=== PATIENT | female | born 1930 | race Caucasian/White ===

== ENCOUNTER 2017-06-23 20:49 | Observation (INO) | payer OTHER ==
[~2017-06-23] VITALS: Ht 160 cm; Wt 50.2 kg
[~2017-06-23 20:49] MED LIST: ASPI81TA28 PO; BRIM0.2S OPB; BRIN1SUS OPB; LISI20TA3 PO; NITR0.4S UT; SERT25TA PO; TERA5CAP PO
[2017-06-23] MEDS ORDERED: DILT-115 PO (21:11)
[2017-06-23] MEDS ORDERED: BUME1TAB PO (21:11)
--- NOTE | 2017-06-23 22:03 | DIAGNOSTIC IMAGING REPORT ---
CHEST ONE VIEW PORTABLE HISTORY: Atypical CHEST PAIN COMPARISON: Chest 01/28/2013. FINDINGS: The lungs are clear. Cardiac silhouette is normal in size. No pleural effusions. No pneumothorax. Stable mild apical pleural thickening. IMPRESSION: No acute process. Electronically signed by: Kenton Lewis M.D. 06/23/2017 10:02 PM Dictated Date/Time: 06/23/2017 10:01 PM
[2017-06-23 22:13] LABS: BASO % 0.3 %; BASO ABS # 0.02 K/uL (0-0.2); COMPLETE YES; EOS % 3.3 %; HEMATOCRIT 36.6 % (37-47); IG% 0.1 %; LYMPH % 32.1 %; LYMPH ABS # 2.46 K/uL (1.2-3.4); MEAN CELL VOLUME 91.7 fL (80-100); MEAN CORPUSCULAR HEMOGLOBIN 30.6 pg (25-34); MEAN CORPUSCULAR HGB CONC 33.3 g/dl (32-36); MEAN PLATELET VOLUME 9.7 fL (7.4-10.4); MONO % 11.1 %; NEUT % 53.1 %; PLATELET COUNT 309 K/uL (130-400); RED BLOOD COUNT 3.99 M/uL (4.2-5.4); WHITE BLOOD COUNT 7.66 K/uL (4.8-10.8)
--- NOTE | 2017-06-23 22:28 | DIAGNOSTIC IMAGING REPORT ---
HEAD CT NONCONTRAST CT DOSE: 537.48 mGy.cm HISTORY: Headache. Hypertension. TECHNIQUE: Multiaxial CT images of the head were performed without the use of intravenous contrast. Automated exposure control was utilized for this study. A dose lowering technique was utilized adhering to the principles of ALARA. Comparison: Head CT 01/28/2013. Findings: The paranasal sinuses and mastoid air cells are clear. The calvarium and skull base are intact. There is no mass, hematoma, midline shift, acute infarct. White matter hypodensity is nonspecific but suggestive of microvascular ischemic change. The ventricles and sulci demonstrate mild age-related involutional changes. Impression: No significant change compared to the prior study. No acute intracranial abnormality. Electronically signed by: Kenton Lewis M.D. 06/23/2017 10:27 PM Dictated Date/Time: 06/23/2017 10:25 PM
[2017-06-23 23:12] LABS: ALKALINE PHOSPHATASE 74 U/L (45-117); ALT/SGPT 13 U/L (12-78); AST/SGOT 20 U/L (15-37); BLOOD UREA NITROGEN 33 mg/dl (7-18); BUN/CREATININE RATIO 23.7 (10-20); CALCIUM 9.5 mg/dl (8.5-10.1); CARBON DIOXIDE 26 mmol/L (21-32); CHLORIDE 101 mmol/L (98-107); GLUCOSE 128 mg/dl (70-99); MAGNESIUM 2.1 mg/dl (1.8-2.4); POTASSIUM 3.6 mmol/L (3.5-5.1); SODIUM 134 mmol/L (136-145)
[2017-06-24] VITALS (9 sets, daily range): BP systolic 95–193; BP diastolic 40–83; PULSE 55–74; TEMP 36.4–36.7; O2SAT 96–98; Ht 160 cm; Wt 50.2 kg
--- NOTE | 2017-06-24 00:04 | EMERGENCY ROOM VISIT NOTE ---
ED Visit Note First contact with patient: 21:32 Staff note: I have reviewed the Patients chart and have discussed this case with my PA. I generally agree with the ED note and findings.
--- NOTE | 2017-06-24 00:26 | EMERGENCY ROOM VISIT NOTE ---
History First contact with patient: 21:32 Chief Complaint: HYPERTENSION Stated Complaint: HIGH BLOOD PRESSURE History of Present Illness The patient is a 87 year old female who presents to the Emergency Room with complaints of high blood pressure for the past day. Blood pressure was 170/100 yesterday. Patient states she had a headache today and noticed her blood pressure was elevated. Patient states when she was cleaning she started getting chest discomfort earlier today around 1:00 and resolved with rest. Patient states was walking back care she got some fluttering in her chest that resolved with rest. No recent stress or echo. 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 This is managed by the vascular doctor in [place]. Patient denies current chest pain, dyspnea, fever, chills, localized weakness, numbness, tingling, vision problems, abdominal pain, fever, chills, vomiting, diarrhea, leg swelling. No history of heart disease. Patient states she's had a TIA in the past. No deficits. Review of Systems See HPI for pertinent positives & negatives. A total of 10 systems reviewed and were otherwise negative. Past Medical/Surgical History Medical Problems: (1) HYPERTENSION NOS (2) Peripheral vascular disease (3) TRANS CEREB ISCHEMIA NOS Social History Smoking Status: Former Smoker Smokeless Tobacco Use: No Alcohol Use: none Drug Use: none Current/Historical Medications Scheduled Aspirin (Aspirin Ec), 81 MG PO DAILY Brimonidine Tartrate-Timolol M (Combigan), 1 DROP OPB BID Brinzolamide Oph (Azopt Oph), 1 DROP OPB BID Bumetanide (Bumex), 1 MG PO DAILY Diltiazem Hcl Ext Rel (Tiazac), 240 MG PO QAM Lisinopril (Prinivil), 40 MG PO QPM Nitroglycerin (Nitrostat), 0.4 MG UT PRN Physical Exam Vital Signs Date Time Temp Pulse Resp B/P (MAP) Pulse Ox O2 Delivery O2 Flow Rate FiO2 06/24/17 00:01 60 18 154/62 100 Room Air 06/23/17 23:03 60 18 147/74 100 Room Air 06/23/17 22:10 82 18 143/64 98 06/23/17 21:55 65 06/23/17 21:50 Room Air 06/23/17 21:34 157/73 06/23/17 21:01 36.4 78 18 203/77 98 Room Air Physical Exam VITALS: Vitals are noted on the nurse's note and reviewed by myself. Vital signs hypertensive GENERAL: Pleasant female, in no acute distress, nondiaphoretic, well-developed well-nourished. SKIN: The skin was without rashes, erythema, edema, or bruising. There is no tenting of the skin. Capillary reflex less than 2 seconds. HEAD: Normocephalic atraumatic. EARS: External auditory canals clear, tympanic membranes pearly taylor without erythema or effusion bilaterally. EYES: Pupils equal round and reactive to light and accommodation. Conjunctivae without injection, sclerae without icterus. Extraocular movements intact. NOSE: Patent, turbinates without inflammation or discharge. MOUTH: Mucous membranes moist. Pharynx without erythema or exudate. Uvula midline. Airway patent. Tongue does not deviate. NECK: Supple without nuchal rigidity. No lymphadenopathy. No thyromegaly. Cervical spine is nontender. No JVD. HEART: Regular rate and rhythm LUNGS: Clear to auscultation bilaterally without wheezes, rales or rhonchi. No dullness to percussion. No retractions or accessory muscle use. ABDOMEN: Positive bowel sounds x 4. Normal tympanic percussion. Soft, nontender, without masses or organomegaly. Jean Baptiste sign negative. No guarding or rebound tenderness. MUSCULOSKELETAL: No muscle atrophy, erythema, or edema noted. NEURO: Patient was alert and oriented to person place and time. Normal sensation to light and sharp touch. No focal neurological deficits. Medical Decision & Procedures Laboratory Results 06/23/17 22:00 Red Blood Count 3.99, Mean Corpuscular Volume 91.7, Mean Corpuscular Hemoglobin 30.6, Mean Corpuscular Hemoglobin Concent 33.3, Mean Platelet Volume 9.7, Neutrophils (%) (Auto) 53.1, Lymphocytes (%) (Auto) 32.1, Monocytes (%) (Auto) 11.1, Eosinophils (%) (Auto) 3.3, Basophils (%) (Auto) 0.3, Neutrophils # (Auto ) 4.07, Lymphocytes # (Auto) 2.46, Monocytes # (Auto) 0.85, Eosinophils # (Auto ) 0.25, Basophils # (Auto) 0.02 06/23/17 22:00 Test 06/23/17 22:00 06/23/17 22:07 06/24/17 00:00 White Blood Count 7.66 K/uL (4.8-10.8) Red Blood Count 3.99 M/uL (4.2-5.4) Hemoglobin 12.2 g/dL (12.0-16.0) Hematocrit 36.6 % (37-47) Mean Corpuscular Volume 91.7 fL (80-100) Mean Corpuscular Hemoglobin 30.6 pg (25-34) Mean Corpuscular Hemoglobin Concent 33.3 g/dl (32-36) Platelet Count 309 K/uL (130-400) Mean Platelet Volume 9.7 fL (7.4-10.4) Neutrophils (%) (Auto) 53.1 % Lymphocytes (%) (Auto) 32.1 % Monocytes (%) (Auto) 11.1 % Eosinophils (%) (Auto) 3.3 % Basophils (%) (Auto) 0.3 % Neutrophils # (Auto) 4.07 K/uL (1.4-6.5) Lymphocytes # (Auto) 2.46 K/uL (1.2-3.4) Monocytes # (Auto) 0.85 K/uL (0.11-0.59) Eosinophils # (Auto) 0.25 K/uL (0-0.5) Basophils # (Auto) 0.02 K/uL (0-0.2) RDW Standard Deviation 44.9 fL (36.4-46.3) RDW Coefficient of Variation 13.5 % (11.5-14.5) Immature Granulocyte % (Auto) 0.1 % Immature Granulocyte # (Auto) 0.01 K/uL (0.00-0.02) Anion Gap 7.0 mmol/L (3-11) Est Creatinine Clear Calc Drug Dose 23.5 ml/min Estimated GFR () 39.6 Estimated GFR (Non- 34.2 BUN/Creatinine Ratio 23.7 (10-20) Calcium Level 9.5 mg/dl (8.5-10.1) Magnesium Level 2.1 mg/dl (1.8-2.4) Total Bilirubin 0.1 mg/dl (0.2-1) Direct Bilirubin mg/dl (0-0.2) Aspartate Amino Transf (AST/SGOT) 20 U/L (15-37) Alanine Aminotransferase (ALT/SGPT) 13 U/L (12-78) Alkaline Phosphatase 74 U/L (45-117) Total Protein 7.5 gm/dl (6.4-8.2) Albumin 3.7 gm/dl (3.4-5.0) Lipase 251 U/L (73-393) Thyroid Stimulating Hormone (TSH) 4.370 uIu/ml (0.300-4.500) Chemistry Specimen Hemolysis Bedside Troponin I < 0.030 ng/ml (0-0.045) ED Course Prior records/ancillary studies reviewed regarding the history above. Triage Nursing notes reviewed. Additional history obtained from the family. The patient's history was concerning for hypertension. Differential diagnosis: Etiologies such as benign hypertension, hypertensive emergency, cardiovascular pathology, pheochromocytoma, electrolyte abnormality, renal disease, endorgan damage, as well as others were entertained. Physical examination: As above. No signs of end organ damage. ER treatment provided: Patient was observed On reassessment the patient felt better. Diagnostic interpretation by me: The electrocardiogram was negative for pathologic change. Poor baseline, normal sinus, normal axis, possible minimal ST depression in the lateral leads, rate of 62. Impression normal sinus rhythm with poor baseline with possible ST depression in the lateral leads. Repeat EKG shows normal sinus with ST depression in the lateral leads interpreted by myself The labs revealed negative troponin Imaging studies: CHEST ONE VIEW PORTABLE HISTORY: Atypical CHEST PAIN COMPARISON: Chest 01/28/2013. FINDINGS: The lungs are clear. Cardiac silhouette is normal in size. No pleural effusions. No pneumothorax. Stable mild apical pleural thickening. IMPRESSION: No acute process. [~ rep ct add3]] HEAD CT NONCONTRAST CT DOSE: 537.48 mGy.cm HISTORY: Headache. Hypertension. TECHNIQUE: Multiaxial CT images of the head were performed without the use of intravenous contrast. Automated exposure control was utilized for this study. A dose lowering technique was utilized adhering to the principles of ALARA. Comparison: Head CT 01/28/2013. Findings: The paranasal sinuses and mastoid air cells are clear. The calvarium and skull base are intact. There is no mass, hematoma, midline shift, acute infarct. White matter hypodensity is nonspecific but suggestive of microvascular ischemic change. The ventricles and sulci demonstrate mild age-related involutional changes. Impression: No significant change compared to the prior study. No acute intracranial abnormality. Electronically signed by: Kenton Lewis M.D. Consultation: A consultation was placed with Dr. Nation hospitalist. The case was discussed and diagnostics were reviewed. The patient was evaluated in the ER for further treatment. This appears to be consistent with elevated blood pressure with chest discomfort. Patient will be evaluated by medicine for possible admission for cardiac rule out. First troponin negative. Blood pressure came down on its own. Patient was neurovascularly and neurologically intact. No recent stress test or echo. By the evaluation outlined above emergent etiologies such as hypertensive emergency, pheochromocytoma, endorgan damage, aortic dissection, pulmonary embolism, pneumonia, pneumothorax, infections, gastrointestinal, as well as others were deemed relatively unlikely. The pt informed about the findings as listed above. All questions were answered and pleased with the treatment. Case reviewed with my attending Medical Decision As above Medication Reconcilliation Current Medication List: was personally reviewed by me Blood Pressure Screening Patient's blood pressure: Elevated blood pressure Blood pressure disposition: Referred to PCP Impression Primary Impression: Precordial chest pain Additional Impression: Hypertension Departure Information Dispostion Being Evaluated By Hospitalist Condition FAIR Referrals Roberta Garcia M.D. (PCP) Patient Instructions My [facility] Problem Qualifiers
[2017-06-24] MEDS ORDERED: IV FLUIDS COMPLETED PRN (01:30)
[2017-06-24] MEDS ORDERED: ONDANSETRON INJ 2 MG/ML 2 ML VIAL IV PRN (01:45)
[2017-06-24] MEDS ORDERED: NITROGLYCERIN 0.4 MG SL PER TAB CHARGE SL PRN (01:45)
[2017-06-24] MEDS ORDERED: HYDROmorphone INJ 0.5 MG/0.5 ML SYR IV PRN (01:45)
[2017-06-24] MEDS ORDERED: ACETAMINOPHEN 325 MG TAB PO PRN (01:45)
[2017-06-24] MEDS ORDERED: TRAMADOL HCL 50 MG TAB PO PRN (01:45)
[2017-06-24] MEDS ORDERED: NSS + 20MEQ KCL 1000ML 1,000 ML IV ONE (02:30)
[2017-06-24 02:55] LABS: URINE APPEARANCE CLEAR (CLEAR); URINE BILIRUBIN NEG (NEG); URINE COLOR YELLOW; URINE NITRITE NEG (NEG); URINE PH 6.5 (4.5-7.5); URINE SPECIFIC GRAVITY 1.012 (1.000-1.030); UROBILINOGEN NEG (NEG); ZZUR CULT IF INDIC CLEAN CATCH NO
[2017-06-24 03:08] LABS: MANUAL MICROSCOPIC REQUIRED? NO; REVIEW REQ? NO
[2017-06-24] MEDS ORDERED: BRINZOLAMIDE (AZOPT) OPS 10 ML BTL OPB ONE (03:30)
[2017-06-24 04:03] LABS: PROTHROMBIN TIME (PATIENT) 10.8 SECONDS (9.0-12.0)
[2017-06-24 05:53] LABS: BASO % 0.3 %; BASO ABS # 0.02 K/uL (0-0.2); COMPLETE YES; EOS % 3.3 %; HEMATOCRIT 36.6 % (37-47); IG% 0.1 %; LYMPH % 33.9 %; LYMPH ABS # 2.38 K/uL (1.2-3.4); MEAN CORPUSCULAR HEMOGLOBIN 30.6 pg (25-34); MEAN CORPUSCULAR HGB CONC 33.6 g/dl (32-36); MEAN PLATELET VOLUME 9.5 fL (7.4-10.4); MONO % 10.8 %; NEUT % 51.6 %; PLATELET COUNT 285 K/uL (130-400); RED BLOOD COUNT 4.02 M/uL (4.2-5.4); WHITE BLOOD COUNT 7.03 K/uL (4.8-10.8)
[2017-06-24] MEDS: HEPARIN SOD 5000 UNIT/0.5 ML CARP SQ SCH ×2 (06:00→14:30)
[2017-06-24 07:11] LABS: BUN/CREATININE RATIO 26.2 (10-20); CALCIUM 9.4 mg/dl (8.5-10.1); POTASSIUM 3.7 mmol/L (3.5-5.1)
--- NOTE | 2017-06-24 07:49 | HISTORY & PHYSICAL EXAMINATION ---
DATE OF ADMISSION: 06/24/2017 PRIMARY CARE DOCTOR: Dr. Garcia. CHIEF COMPLAINT: Chest heaviness. HISTORY OF PRESENT ILLNESS: History obtained from patient and records. Medical history significant for hypertension, hyperlipidemia, post polio syndrome, genital herpes as per records, glaucoma, PVD as per records, history of TIA. Recent confinement in July 2008 for TIA. The last few days, the patient would note intermittent chest heaviness without shortness of breath. Blood pressure noted to be higher than usual, 170s. Usual household cleaning chores. Patient admits to adding salt to corn snack the past week. No unusual stress at home. Compliant w/ home medications Tonight chest heaviness distressing. Achy posterior headache symptoms, her ears were red. Symptoms eased upon arrival in the Emergency Room. Initially on arrival at the Emergency Room, blood pressure noted to be 203/77. Patient's blood pressure currently 160/78. MEDICAL HISTORY: As above. SURGERIES: Appendectomy. She has had a section. HOME MEDICATIONS: Include Nitrostat, aspirin, Combigan, Azopt, Bumex, Tiazac, lisinopril. ALLERGIES: HCTZ. FAMILY HISTORY: Diabetes, stroke, AAA. PERSONAL AND SOCIAL HISTORY: Past tobacco abuse. No chronic intake of alcoholic beverages. Also on disability. REVIEW OF SYSTEMS: As per HPI, all other ROS negative. PHYSICAL EXAMINATION: VITAL SIGNS: Blood pressure was noted to be initially 203/77, later 147/74, pulse rate 60, RR 18, temperature 36.6, sats 100 on room air. GENERAL: Noted to be pleasant, looks younger for stated age. SKIN: Normal color. HEENT: [place] palpebral conjunctivae. Dry mucosa. NECK: No JVD. Supple. CHEST: Clear to auscultation. HEART: Regular rate and rhythm, systolic murmur. ABDOMEN: Soft. EXTREMITIES: No edema. no tenderness. [place] [facility] NEUROLOGIC: No gross focality. LABORATORIES: Hemoglobin was noted to be 12.2, hematocrit 36.6, white cell count 7.66, platelets 309. Sodium 132, potassium 3.6. crea 1.4, trop 0 Chest x-ray showed no acute process. CT of the head, no significant change. EKG as per my interpretation, normal sinus rhythm, PACs. No overt ischemia. ASSESSMENT: 1. Chest pain possibly likely from hypertensive urgency, possibly from dietary indiscretion. 2. ARF 3. History of transient ischemic attack as per records 4. Peripheral vascular disease. 5. Past tobacco abuse. PLAN: Observation. PCU. Judicious blood pressure control. May need to augment regimen. TTE re chest pain. baseline UA, monitor creatinine response to IVF. Hold home VANGIE inhibitor until creatinine at baseline PT OT eval DVT prophylaxis, Heparin subQ. Full code. Patient's daughter requesting for updates from providers, Carolyn Sivan Mauri, . MTDD
[2017-06-24] MEDS: COMBIGAN~ORDER AWAITING ACTION SCH ×2 (07:58→16:00)
[2017-06-24] MEDS ORDERED: BRINZOLAMIDE (AZOPT) OPS 10 ML BTL OPB SCH (09:00)
[2017-06-24] MEDS ORDERED: DILTIAZEM HCL 120 MG EXT REL CAP PO SCH (09:00)
[2017-06-24] MEDS ORDERED: ASPIRIN 81 MG ECTAB PO SCH (09:00)
--- NOTE | 2017-06-24 09:15 | ECHOCARDIOGRAM REPORT ---
*NOTICE TO RECEIVING LIBERTARIAN AGENCY This information is strictly Confidential and protected under [place] law. [place] law prohibits you from making any further disclosure of this information unless further disclosure is expressly permitted by the written consent of the person to whom it pertains or is authorized by law. A general authorization for the release of medical or other information is not sufficient for this purpose. Hospital accepts no responsibility if the information is made available to any other person, INCLUDING THE PATIENT. Interpretation Summary * Name: ARIA HANDLEY Study Date: 06/24/2017 07:16 AM BP: 154/83 mmHg * Patient Location: C.2T\S\S230\S\1 HR: 71 * : 1930 (M/d/yyyy) Gender: Female Height: 63 in * Age: 87 yrs Ethnicity: CA Weight: 111 lb * Ordering Physician: Anthony Raymond * Referring Physician: Self, Referred * Performed By: Annette Arango RCS * * Reason For Study: CHEST PAIN * BSA: 1.5 m2 * -- Conclusions -- * Normal LV chamber size and wall thickness. * Normal LV systolic function, 55-60%. * No segmental left ventricular wall motion abnormalities are noted. * Grade I diastolic dysfunction. * Aortic valve sclerosis mild, without significant aortic valvular stenosis. Mild aortic regurgitation. 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 Mild to moderate mitral regurgitation. * Moderate to severe tricuspid regurgitation. * Moderate right atrial enlargement. Procedure Details * A complete two-dimensional transthoracic echocardiogram was performed (2D, M-mode, Doppler and color flow Doppler). Left Ventricle * The left ventricle is normal in size. * There is normal left ventricular wall thickness. * Left ventricular systolic function is normal. * No segmental left ventricular wall motion abnormalities are noted. * Ejection Fraction = 55-60%. * The left ventricular wall motion is normal. Right Ventricle * The right ventricular cavity size is normal (basal dimension <4.2 cm in right ventricular apical 4-chamber view). * The right ventricular systolic function is normal as assessed by tricuspid annular plane systolic excursion (TAPSE) (normal >1.5 cm). Atria * The left atrial size is normal. * The right atrium is moderately dilated. * No ASD detected; PFO is not assessed. Mitral Valve * There is mild mitral annular calcification. 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 Mild to moderate mitral regurgitation. Tricuspid Valve * The tricuspid valve anatomy is normal. * There is no tricuspid stenosis. * There is moderate to severe tricuspid regurgitation. Aortic Valve * The aortic valve is trileaflet. * Aortic valve sclerosis mild, without significant aortic valvular stenosis. * Mild aortic regurgitation. Pulmonic Valve * The pulmonary valve is not well seen, but the Doppler examination is normal without significant regurgitation or stenosis. Great Vessels * The aortic root is normal size. Pericardium/Pleural * There is no pericardial effusion. Left Ventricular Diastolic Function * Grade I diastolic dysfunction, (abnormal relaxation pattern). MMode 2D Measurements and Calculations IVSd 0.98 cm IVSs 1.4 cm LVIDd 4.2 cm LVIDs 2.9 cm LVPWd 0.87 cm LVPWs 1.0 cm IVS/LVPW 1.1 FS 30.6 % EDV(Teich) 78.1 ml ESV(Teich) 32.4 ml EF(Teich) 58.5 % EDV(cubed) 73.5 ml ESV(cubed) 24.6 ml EF(cubed) 66.5 % % IVS thick 45.3 % % LVPW thick 18.3 % LV mass(C)d 122.7 grams LV mass(C)dI 81.5 grams/m\S\2 LV mass(C)s 108.5 grams LV mass(C)sI 72.0 grams/m\S\2 SV(Teich) 45.6 ml SI(Teich) 30.3 ml/m\S\2 SV(cubed) 48.9 ml SI(cubed) 32.5 ml/m\S\2 Ao root diam 2.6 cm Ao root area 5.2 cm\S\2 ACS 1.5 cm LA dimension 3.4 cm LA/Ao 1.3 LVOT diam 2.0 cm LVOT area 3.0 cm\S\2 Doppler Measurements and Calculations MV E max skyla 108.9 cm/sec MV A max skyla 110.0 cm/sec MV E/A 0.99 MV P1/2t max skyla 118.3 cm/sec MV P1/2t 54.3 msec MVA(P1/2t) 4.1 cm\S\2 MV dec slope 638.9 cm/sec\S\2 MV dec time 0.19 sec Ao V2 max 145.3 cm/sec Ao max PG 8.4 mmHg Ao max PG (full) 5.3 mmHg ANN(V,A) 1.8 cm\S\2 ANN(V,D) 1.8 cm\S\2 AI max skyla 418.0 cm/sec AI max PG 69.9 mmHg AI dec slope 278.4 cm/sec\S\2 AI P1/2t 439.7 msec LV V1 max PG 3.1 mmHg LV V1 max 88.4 cm/sec PA V2 max 88.4 cm/sec PA max PG 3.1 mmHg PI max skyla 181.3 cm/sec PI max PG 13.1 mmHg PI dec slope 224.0 cm/sec\S\2 PI P1/2t 237.0 msec TR max skyla 303.5 cm/sec
[2017-06-24] MEDS ORDERED: HydrALAZINE HCL 20 MG/ML VIAL IV. PRN (12:00)
--- NOTE | 2017-06-24 12:20 | Progress Note ---
Medicine Progress Note Date & Time of Visit: Jun 24, 2017 at 12:00. Subjective Pt was seen and examined Lying in bed comfortable with no discharge Pt said that she does not have any chest discomfort She said that she feels fine Denies any chest pain, palpitation, dizziness and SOB Objective Last 8 Hrs Date Time Temp Pulse Resp B/P (MAP) Pulse Ox O2 Delivery O2 Flow Rate FiO2 06/24/17 10:44 36.4 70 20 166/74 (104) 98 Room Air 06/24/17 08:06 36.5 71 20 154/73 (100) 98 Room Air Physical Exam: General- No acute distress Head- atraumatic Eyes- PERRL, EOMI ENT- oropharynx clear Neck- supple, no JVD Lungs- clear to auscultation Heart- regular rhythm Abdomen- normal bowel sounds, soft, nontender Extremities- no calf tenderness Neuro- alert, oriented x 3; PERRL, EOMI; no facial palsy Skin- warm & dry Laboratory Results: Last 24 Hours Test 06/23/17 22:00 06/23/17 22:07 06/24/17 00:00 06/24/17 02:45 White Blood Count 7.66 K/uL Red Blood Count 3.99 M/uL Hemoglobin 12.2 g/dL Hematocrit 36.6 % Mean Corpuscular Volume 91.7 fL Mean Corpuscular Hemoglobin 30.6 pg Mean Corpuscular Hemoglobin Concent 33.3 g/dl Platelet Count 309 K/uL Mean Platelet Volume 9.7 fL Neutrophils (%) (Auto) 53.1 % Lymphocytes (%) (Auto) 32.1 % Monocytes (%) (Auto) 11.1 % Eosinophils (%) (Auto) 3.3 % Basophils (%) (Auto) 0.3 % Neutrophils # (Auto) 4.07 K/uL Lymphocytes # (Auto) 2.46 K/uL Monocytes # (Auto) 0.85 K/uL Eosinophils # (Auto) 0.25 K/uL Basophils # (Auto) 0.02 K/uL RDW Standard Deviation 44.9 fL RDW Coefficient of Variation 13.5 % Immature Granulocyte % (Auto) 0.1 % Immature Granulocyte # (Auto) 0.01 K/uL Prothrombin Time 10.8 SECONDS Prothromb Time International Ratio 1.0 Sodium Level 134 mmol/L Potassium Level 3.6 mmol/L Chloride Level 101 mmol/L Carbon Dioxide Level 26 mmol/L Anion Gap 7.0 mmol/L Blood Urea Nitrogen 33 mg/dl Creatinine 1.40 mg/dl Est Creatinine Clear Calc Drug Dose 23.5 ml/min Estimated GFR () 39.6 Estimated GFR (Non- 34.2 BUN/Creatinine Ratio 23.7 Random Glucose 128 mg/dl Calcium Level 9.5 mg/dl Magnesium Level 2.1 mg/dl Total Bilirubin 0.1 mg/dl Direct Bilirubin mg/dl Aspartate Amino Transf (AST/SGOT) 20 U/L Alanine Aminotransferase (ALT/SGPT) 13 U/L Alkaline Phosphatase 74 U/L Troponin I < 0.015 ng/ml < 0.015 ng/ml Total Protein 7.5 gm/dl Albumin 3.7 gm/dl Lipase 251 U/L Thyroid Stimulating Hormone (TSH) 4.370 uIu/ml Chemistry Specimen Hemolysis Bedside Troponin I < 0.030 ng/ml Urine Color YELLOW Urine Appearance CLEAR Urine pH 6.5 Urine Specific [place] 1.012 Urine Protein NEG Urine Glucose (UA) NEG Urine Ketones NEG Urine Occult Blood NEG Urine Nitrite NEG Urine Bilirubin NEG Urine Urobilinogen NEG Urine Leukocyte Esterase NEG Test 06/24/17 05:34 06/24/17 05:41 White Blood Count 7.03 K/uL Red Blood Count 4.02 M/uL Hemoglobin 12.3 g/dL Hematocrit 36.6 % Mean Corpuscular Volume 91.0 fL Mean Corpuscular Hemoglobin 30.6 pg Mean Corpuscular Hemoglobin Concent 33.6 g/dl Platelet Count 285 K/uL Mean Platelet Volume 9.5 fL Neutrophils (%) (Auto) 51.6 % Lymphocytes (%) (Auto) 33.9 % Monocytes (%) (Auto) 10.8 % Eosinophils (%) (Auto) 3.3 % Basophils (%) (Auto) 0.3 % Neutrophils # (Auto) 3.63 K/uL Lymphocytes # (Auto) 2.38 K/uL Monocytes # (Auto) 0.76 K/uL Eosinophils # (Auto) 0.23 K/uL Basophils # (Auto) 0.02 K/uL RDW Standard Deviation 44.8 fL RDW Coefficient of Variation 13.5 % Immature Granulocyte % (Auto) 0.1 % Immature Granulocyte # (Auto) 0.01 K/uL Troponin I < 0.015 ng/ml Sodium Level 140 mmol/L Potassium Level 3.7 mmol/L Chloride Level 106 mmol/L Carbon Dioxide Level 26 mmol/L Anion Gap 8.0 mmol/L Blood Urea Nitrogen 26 mg/dl Creatinine 1.00 mg/dl Est Creatinine Clear Calc Drug Dose 32.6 ml/min Estimated GFR () 59.5 Estimated GFR (Non- 51.3 BUN/Creatinine Ratio 26.2 Random Glucose 93 mg/dl Calcium Level 9.4 mg/dl Assessment & Plan Hypertensive Urgency BP on admission was 203/77 Pt has been eating salt lately BP 154/73 On Cardizem 240 mg and lisinopril 40mg Advised pt to follow a low salt diet Resume lisinopril tonight Continue monitor BP and bring BP log to your next appt with your PCP Pressure Like Chest Discomfort Likely from hypertensive urgency due to increase salt All 3 sets of troponin negative Continue asa Denies any symptoms currently ECHO showed *Normal LV chamber size and wall thickness. * Normal LV systolic function, 55-60%. * No segmental left ventricular wall motion abnormalities are noted. * Grade I diastolic dysfunction. * Aortic valve sclerosis mild, without significant aortic valvular stenosis. Mild aortic regurgitation. 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 Mild to moderate mitral regurgitation. * Moderate to severe tricuspid regurgitation. * Moderate right atrial enlargement. Acute kidney injury Creatine on admission1.4 creatine today is 1 resolved History of transient ischemic attack as per records Continue ASA DVT Px on SCDs CODE STATUS FULL CODE Current Inpatient Medications: Current Inpatient Medications Medications (Trade) Dose Ordered Sig/Shahriar Route Start Time Stop Time Status Last Admin Dose Admin Miscellaneous (Iv Fluids Completed) 1 ea PRN PRN N/A 06/24/17 01:30 06/24/18 01:29 Aspirin (Ecotrin Tab) 81 mg DAILY PO 06/24/17 09:00 07/24/17 08:59 06/24/17 08:12 81 MG Brinzolamide (Azopt) 1 drops BID OPB 06/24/17 09:00 07/24/17 08:59 06/24/17 08:14 1 DROPS Diltiazem HCl (TIAzac CAP) 240 mg QAM PO 06/24/17 09:00 07/24/17 08:59 06/24/17 09:43 240 MG Miscellaneous Information (Order Awaiting Action) 1 ea QS N/A 06/24/17 03:30 07/24/17 03:29 Potassium Chloride/Sodium Chloride 1,000 ml @ 75 mls/hr [id number] ONCE IV 06/24/17 02:30 06/24/17 15:49 06/24/17 03:16 75 MLS/HR Acetaminophen (Tylenol Tab) 650 mg Q4H PRN PO 06/24/17 01:45 07/24/17 01:44 Nitroglycerin (Nitrostat Tab) 0.4 mg UD PRN SL 06/24/17 01:45 07/24/17 01:44 Hydromorphone HCl (Dilaudid Inj) 0.5 mg Q3H PRN IV 06/24/17 01:45 07/08/17 01:44 Ondansetron HCl (Zofran Inj) 4 mg Q6H PRN IV 06/24/17 01:45 07/24/17 01:44 Tramadol HCl (Ultram Tab) 25 mg Q6H PRN PO 06/24/17 01:45 07/24/17 01:44 Heparin Sodium (Porcine) (Heparin Sq 5000 Unit/0.5ml) 5,000 unit Q8 SQ 06/24/17 06:00 07/24/17 05:59 06/24/17 06:00 5,000 UNIT
[2017-06-24] MEDS ORDERED: SODIUM CHLORIDE 0.9% 1000ML 500 ML IV ONE (15:30)
[2017-06-24] MEDS ORDERED: NURSING VERBAL MED ORDER ONE (15:30)
--- NOTE | 2017-06-24 16:54 | Discharge Instructions ---
Discharge Instructions Date of Service Jun 24, 2017. Admission Reason for Admission: Precordial Chest Pain Discharge Discharge Diagnosis / Problem: Hypertensive urgency, Pressure Like Chest Discomfort, Acute kidney injury Discharge Goals Goal(s): Decrease discomfort, Improve function, Improve disease control Activity Recommendations Activity Limitations: resume your previous activity (as tolerated) . Instructions / Follow-Up Instructions / Follow-Up Follow up with your primary Care provider Dr. Garcia on 06/29 @ 11:05 AM monitor your Blood pressure Bring blood pressure log at your next appointment with Dr. Garcia Follow a low salt diet fall precaution Current Hospital Diet Patient's current hospital diet: AHA Diet (Heart Healthy) Discharge Diet Recommended Diet: AHA Diet (Heart Healthy), Low Sodium Diet (2gm Na) Pending Studies Studies pending at discharge: no Medical Emergencies . Who to Call and When: Medical Emergencies: If at any time you feel your situation is an emergency, please call 911 immediately. . Non-Emergent Contact Non-Emergency issues call your: Primary Care Provider Call Non-Emergent contact if: you have any medication questions . . "Provider Documentation" section prepared by Carolyn Kunz. . VTE Core Measure Inpt VTE Proph given/why not?: Unfractionated heparin SQ
[2017-06-24] MEDS ORDERED: LISINOPRIL 20 MG TAB PO SCH (21:00)
--- NOTE | 2017-06-25 17:51 | Discharge Summary ---
Discharge Summary Date of Service Jun 25, 2017. Discharge Summary Admission Date: Jun 24, 2017 at 00:49 Discharge Date: Jun 24, 2017 Discharge Disposition: Home Principal Diagnosis: Hypertensive urgency Secondary Diagnoses/Problems: Pressure Like Chest Discomfort Acute kidney injury History of transient ischemic attack Acute Kidney Injury Procedures: HEAD CT NONCONTRAST CT DOSE: 537.48 mGy.cm HISTORY: Headache. Hypertension. TECHNIQUE: Multiaxial CT images of the head were performed without the use of intravenous contrast. Automated exposure control was utilized for this study. A dose lowering technique was utilized adhering to the principles of ALARA. Comparison: Head CT 01/28/2013. Findings: The paranasal sinuses and mastoid air cells are clear. The calvarium and skull base are intact. There is no mass, hematoma, midline shift, acute infarct. White matter hypodensity is nonspecific but suggestive of microvascular ischemic change. The ventricles and sulci demonstrate mild age-related involutional changes. Impression: No significant change compared to the prior study. No acute intracranial abnormality. Electronically signed by: Kenton Lewis M.D. 06/23/2017 10:27 PM Dictated Date/Time: 06/23/2017 10:25 PM [~ rep ct add3]] CHEST ONE VIEW PORTABLE HISTORY: Atypical CHEST PAIN COMPARISON: Chest 01/28/2013. FINDINGS: The lungs are clear. Cardiac silhouette is normal in size. No pleural effusions. No pneumothorax. Stable mild apical pleural thickening. IMPRESSION: No acute process. Electronically signed by: Kenton Lewis M.D. 06/23/2017 10:02 PM ECHO Interpretation Summary * Name: ARIA HANDLEY Study Date: 06/24/2017 07:16 AM BP: 154/83 mmHg * Patient Location: 2\\S\\S230\\S\\1 HR: 71 * : 1930 (M/d/yyyy) Gender: Female Height: 63 in * Age: 87 yrs Ethnicity: [place] Weight: 111 lb * Ordering Physician: Anthony Raymond * Referring Physician: Self, Referred * Performed By: Annette Arango RCS * * Reason For Study: CHEST PAIN * BSA: 1.5 m2 * -- Conclusions -- * Normal LV chamber size and wall thickness. * Normal LV systolic function, 55-60%. * No segmental left ventricular wall motion abnormalities are noted. * Grade I diastolic dysfunction. * Aortic valve sclerosis mild, without significant aortic valvular stenosis. Mild aortic regurgitation. 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 Mild to moderate mitral regurgitation. * Moderate to severe tricuspid regurgitation. * Moderate right atrial enlargement. Procedure Details * A complete two-dimensional transthoracic echocardiogram was performed (2D, M-mode, Doppler and color flow Doppler). Left Ventricle * The left ventricle is normal in size. * There is normal left ventricular wall thickness. * Left ventricular systolic function is normal. * No segmental left ventricular wall motion abnormalities are noted. * Ejection Fraction = 55-60%. * The left ventricular wall motion is normal. Right Ventricle * The right ventricular cavity size is normal (basal dimension <4.2 cm in right ventricular apical 4-chamber view). * The right ventricular systolic function is normal as assessed by tricuspid annular plane systolic excursion (TAPSE) (normal >1.5 cm). Atria * The left atrial size is normal. * The right atrium is moderately dilated. * No ASD detected; PFO is not assessed. Mitral Valve * There is mild mitral annular calcification. 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 Mild to moderate mitral regurgitation. Tricuspid Valve * The tricuspid valve anatomy is normal. * There is no tricuspid stenosis. * There is moderate to severe tricuspid regurgitation. Aortic Valve * The aortic valve is trileaflet. * Aortic valve sclerosis mild, without significant aortic valvular stenosis. * Mild aortic regurgitation. Pulmonic Valve * The pulmonary valve is not well seen, but the Doppler examination is normal without significant regurgitation or stenosis. Great Vessels * The aortic root is normal size. Pericardium/Pleural * There is no pericardial effusion. Left Ventricular Diastolic Function * Grade I diastolic dysfunction, (abnormal relaxation pattern). Medication Reconciliation Continued Medications: Aspirin (Aspirin Ec) 81 Mg Tab 81 MG PO DAILY Brimonidine Tartrate-Timolol M (Combigan) 1 Maite Maite 1 DROP OPB BID Brinzolamide Oph (Azopt Oph) 1 % Ame 1 DROP OPB BID, BTL Bumetanide (Bumex) 1 Mg Tab 1 MG PO DAILY, TAB Diltiazem Hcl Ext Rel (Tiazac) 240 Mg Capcr 240 MG PO QAM, CAP Lisinopril (Prinivil) 20 Mg Tab 40 MG PO QPM, TAB Nitroglycerin (Nitrostat) 0.4 Mg Sub 0.4 MG UT PRN, BTL ONE TABLET UNDER THE TONGUE EVERY 5 MINUTES NEEDED FOR CHEST PAIN. MAXIMUM OF 3 DOSES IN 15 MINUTES. Admission Information HPI (per Admitting provider): CHIEF COMPLAINT: Chest heaviness. HISTORY OF PRESENT ILLNESS: History obtained from patient and records. Medical history significant for hypertension, hyperlipidemia, post polio syndrome, genital herpes as per records, glaucoma, PVD as per records, history of TIA. Recent confinement in July 2008 for TIA. The last few days, the patient would note intermittent chest heaviness without shortness of breath. Blood pressure noted to be higher than usual, 170s. Usual household cleaning chores. Patient admits to adding salt to corn snack the past week. No unusual stress at home. Compliant w/ home medications Tonight chest heaviness distressing. Achy posterior headache symptoms, her ears were red. Symptoms eased upon arrival in the Emergency Room. Initially on arrival at the Emergency Room, blood pressure noted to be 203/77. Patient's blood pressure currently 160/78. Physical Exam (per Admitting): PHYSICAL EXAMINATION: VITAL SIGNS: Blood pressure was noted to be initially 203/77, later 147/74, pulse rate 60, RR 18, temperature 36.6, sats 100 on room air. GENERAL: Noted to be pleasant, looks younger for stated age. SKIN: Normal color. HEENT: [place] palpebral conjunctivae. Dry mucosa. NECK: No JVD. Supple. CHEST: Clear to auscultation. HEART: Regular rate and rhythm, systolic murmur. ABDOMEN: Soft. EXTREMITIES: No edema. no tenderness. [place] [facility] NEUROLOGIC: No gross focality. Hospital Course Hypertensive Urgency BP on admission was 203/77 Pt has been eating salt lately BP 154/73 On Cardizem 240 mg and lisinopril 40mg Advised pt to follow a low salt diet Resume lisinopril tonight Continue monitor BP and bring BP log to your next appt with your PCP Pressure Like Chest Discomfort Likely from hypertensive urgency due to increase salt All 3 sets of troponin negative Continue asa Denies any symptoms currently ECHO showed *Normal LV chamber size and wall thickness. * Normal LV systolic function, 55-60%. * No segmental left ventricular wall motion abnormalities are noted. * Grade I diastolic dysfunction. * Aortic valve sclerosis mild, without significant aortic valvular stenosis. Mild aortic regurgitation. 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 Mild to moderate mitral regurgitation. * Moderate to severe tricuspid regurgitation. * Moderate right atrial enlargement. Acute kidney injury Creatine on admission1.4 creatine today is 1 resolved History of transient ischemic attack as per records Continue ASA DVT Px on SCDs CODE STATUS FULL CODE Total time spent on discharge = 35 minutes This includes examination of the patient, discharge planning, medication reconciliation, and communication with other providers. Discharge Instructions Discharge Instructions Date of Service Jun 24, 2017. Admission Reason for Admission: Precordial Chest Pain Discharge Discharge Diagnosis / Problem: Hypertensive urgency, Pressure Like Chest Discomfort, Acute kidney injury Discharge Goals Goal(s): Decrease discomfort, Improve function, Improve disease control Activity Recommendations Activity Limitations: resume your previous activity (as tolerated) . Instructions / Follow-Up Instructions / Follow-Up Follow up with your primary Care provider Dr. Garcia on 06/29 @ 11:05 AM monitor your Blood pressure Bring blood pressure log at your next appointment with Dr. Garcia Follow a low salt diet fall precaution Current Hospital Diet Patient's current hospital diet: AHA Diet (Heart Healthy) Discharge Diet Recommended Diet: AHA Diet (Heart Healthy), Low Sodium Diet (2gm Na) Pending Studies Studies pending at discharge: no Medical Emergencies . Who to Call and When: Medical Emergencies: If at any time you feel your situation is an emergency, please call 911 immediately. . Non-Emergent Contact Non-Emergency issues call your: Primary Care Provider Call Non-Emergent contact if: you have any medication questions . . "Provider Documentation" section prepared by Carolyn Kunz. . VTE Core Measure Inpt VTE Proph given/why not?: Unfractionated heparin SQ Additional Copies To Roberta Garcia M.D.
== END 2017-06-24 17:52 | disposition home or self-care (01) ==
LOC: C.EDB 20:50 → C.2T 06-24 00:49 → ENRESERV 06-24 01:14 → UNDODISOB 06-24 14:45
PROVIDERS: ADMIT Internal Medicine; ATTEND Internal Medicine
DX: R07.89 Other chest pain (principal); N17.9 Acute kidney failure, unspecified; I10 Essential (primary) hypertension; I73.9 Peripheral vascular disease, unspecified; G14 Postpolio syndrome; E78.5 Hyperlipidemia, unspecified; Z87.891 Personal history of nicotine dependence; Z79.82 Long term (current) use of aspirin; Z79.899 Other long term (current) drug therapy; Z86.73 Personal history of transient ischemic attack (TIA), and cerebral infarction without residual deficits

== ENCOUNTER 2017-09-16 10:13 | Inpatient (IN) | payer OTHER ==
[~2017-09-16] VITALS: Ht 160 cm; Wt 50.4 kg
[2017-09-16] VITALS (12 sets, daily range): BP systolic 95–171; BP diastolic 49–78; PULSE 56–64; TEMP 36.5–36.6; O2SAT 97–100; Ht 160 cm; Wt 50.4 kg
[~2017-09-16 10:13] MED LIST changes: +BUME1TAB PO; +DILT-115 PO; -SERT25TA PO; -TERA5CAP PO
[2017-09-16] MEDS ORDERED: DILT-113 PO (10:45)
--- NOTE | 2017-09-16 11:02 | EMERGENCY ROOM VISIT NOTE ---
History Report prepared by Patti: Tammy Emery Under the Supervision of: Dr. Brad Suggs M.D. First contact with patient: 10:37 Chief Complaint: CHEST PAIN Stated Complaint: POSSIBLE HEART ATTACK, CHEST/JAW PAIN Nursing Triage Summary: pt reports right jaw pain started 2 evening ago chest pain started yesterday am. has nitro for angina relieved jaw and chest pressure History of Present Illness The patient is an 87 year old white female with a past medical history of hyperlipidemia, TIA, hypertension who presents to the ED with a cc of intermittent chest pain beginning yesterday. Positive shortness of breath, diaphoresis, pain in jaw. Negative cough, fever, chills, nausea, abdominal pain , swelling in her lower extremities. She currently rates her discomfort as a 5/ 10 in severity. The patient states that she first developed her pain yesterday , noting that it was more central. She rated that pain as a 10/10 in severity. The patient states that today her pain is on the left side of her chest. She states that she took 81 mg of Aspirin and a dose of nitroglycerin. She denies any history of blood clots. Source of History: patient Onset: yesterday Position: chest (left) Symptom Intensity: 5/10 Timing: intermittent Associated Symptoms: + diaphoresis, + SOB, No fevers, No chills, No cough, No nausea, No abdominal pain Note: Associated Symptoms: pain in jaw Review of Systems See HPI for pertinent positives and negatives. A total of ten systems were reviewed and were otherwise negative. Past Medical & Surgical Medical Problems: (1) HYPERTENSION NOS (2) Peripheral vascular disease (3) TRANS CEREB ISCHEMIA NOS Family History Noncontributory secondary to age Social History Smoking Status: Never Smoker Alcohol Use: none Drug Use: none Marital Status: Occupation Status: retired Current/Historical Medications Scheduled Aspirin (Aspirin Ec), 81 MG PO DAILY Brimonidine Tartrate-Timolol M (Combigan), 1 DROP OPB BID Brinzolamide Oph (Azopt Oph), 1 DROP OPB BID Bumetanide (Bumex), 1 MG PO DAILY Diltiazem Hcl Ext Rel (Tiazac), 180 MG PO DAILY Lisinopril (Prinivil), 40 MG PO QPM Nitroglycerin (Nitrostat), 0.4 MG UT PRN Allergies Coded Allergies: Hydrochlorothiazide (Verified Allergy, Unknown, ., 06/23/17) Physical Exam Vital Signs Date Time Temp Pulse Resp B/P (MAP) Pulse Ox O2 Delivery O2 Flow Rate FiO2 09/16/17 12:54 67 20 151/69 98 Room Air 09/16/17 12:20 57 20 118/67 98 09/16/17 12:07 69 20 93/43 97 Room Air 09/16/17 12:00 97 Room Air 09/16/17 11:58 68 18 133/67 97 Room Air 09/16/17 10:42 73 09/16/17 10:40 98 Room Air 09/16/17 10:40 67 18 159/72 98 Room Air 09/16/17 10:27 36.7 63 18 118/63 95 Room Air Physical Exam GENERAL: Awake, alert, well-appearing, NAD HENT: Normocephalic, atraumatic. EYES: Normal conjunctiva. Sclera non-icteric. NECK: Supple. No nuchal rigidity. FROM. RESPIRATORY: CTAB, no rhonchi, wheezing, crackles CARDIAC: RRR, no MRG ABDOMEN: Soft, NTND, BS+ MSK: No chest wall TTP, no LE edema NEURO: GCS 15, CN 2-12 intact, moves all 4s on command SKIN: No rash or jaundice noted. Medical Decision & Procedures ER Provider Diagnostic Interpretation: X-ray: Per my interpretation, radiologist review. CHEST ONE VIEW PORTABLE CLINICAL HISTORY: Chest pain. COMPARISON STUDY: Chest radiograph June 23, 2017. FINDINGS: Lung volumes are normal. No pneumothorax or pleural effusion is present. Cardiomediastinal silhouette is normal. Pulmonary vascularity is normal. There is no consolidation to suggest pneumonia. Mild biapical opacities are unchanged. IMPRESSION: No acute cardiopulmonary findings. Electronically signed by: Yogesh Gardner M.D. 09/16/2017 11:31 AM Dictated Date/Time: 09/16/2017 11:29 AM Laboratory Results 09/16/17 11:04 Red Blood Count 3.88, Mean Corpuscular Volume 94.1, Mean Corpuscular Hemoglobin 31.7, Mean Corpuscular Hemoglobin Concent 33.7, Mean Platelet Volume 9.7, Neutrophils (%) (Auto) 80.6, Lymphocytes (%) (Auto) 10.8, Monocytes (%) (Auto) 7.8, Eosinophils (%) (Auto) 0.6, Basophils (%) (Auto) 0.1, Neutrophils # (Auto) 11.69, Lymphocytes # (Auto) 1.56, Monocytes # (Auto) 1.13, Eosinophils # (Auto) 0.09, Basophils # (Auto) 0.02 09/16/17 11:04 Test 09/16/17 11:04 White Blood Count 14.51 K/uL (4.8-10.8) Red Blood Count 3.88 M/uL (4.2-5.4) Hemoglobin 12.3 g/dL (12.0-16.0) Hematocrit 36.5 % (37-47) Mean Corpuscular Volume 94.1 fL (80-100) Mean Corpuscular Hemoglobin 31.7 pg (25-34) Mean Corpuscular Hemoglobin Concent 33.7 g/dl (32-36) Platelet Count 305 K/uL (130-400) Mean Platelet Volume 9.7 fL (7.4-10.4) Neutrophils (%) (Auto) 80.6 % Lymphocytes (%) (Auto) 10.8 % Monocytes (%) (Auto) 7.8 % Eosinophils (%) (Auto) 0.6 % Basophils (%) (Auto) 0.1 % Neutrophils # (Auto) 11.69 K/uL (1.4-6.5) Lymphocytes # (Auto) 1.56 K/uL (1.2-3.4) Monocytes # (Auto) 1.13 K/uL (0.11-0.59) Eosinophils # (Auto) 0.09 K/uL (0-0.5) Basophils # (Auto) 0.02 K/uL (0-0.2) RDW Standard Deviation 49.6 fL (36.4-46.3) RDW Coefficient of Variation 14.4 % (11.5-14.5) Immature Granulocyte % (Auto) 0.1 % Immature Granulocyte # (Auto) 0.02 K/uL (0.00-0.02) Echinocytes 1+ Prothrombin Time 10.7 SECONDS (9.0-12.0) Prothromb Time International Ratio 1.0 (0.9-1.1) Activated Partial Thromboplast Time 27.6 SECONDS (21.0-31.0) Partial Thromboplastin Ratio 1.1 Anion Gap 8.0 mmol/L (3-11) Est Creatinine Clear Calc Drug Dose 33.4 ml/min Estimated GFR () 61.0 Estimated GFR (Non- 52.6 BUN/Creatinine Ratio 19.6 (10-20) Calcium Level 9.5 mg/dl (8.5-10.1) Phosphorus Level 2.6 mg/dl (2.5-4.9) Magnesium Level 2.1 mg/dl (1.8-2.4) Total Bilirubin 0.4 mg/dl (0.2-1) Direct Bilirubin < 0.1 mg/dl (0-0.2) Aspartate Amino Transf (AST/SGOT) 20 U/L (15-37) Alanine Aminotransferase (ALT/SGPT) 14 U/L (12-78) Alkaline Phosphatase 73 U/L (45-117) Troponin I 0.129 ng/ml (0-0.045) Pro-B-Type Natriuretic Peptide 1012 pg/ml (0-1800) Total Protein 7.6 gm/dl (6.4-8.2) Albumin 3.8 gm/dl (3.4-5.0) Lipase 239 U/L (73-393) Laboratory results reviewed by me Medications Administered Medications (Trade) Dose Ordered Sig/Shahriar Route Start Time Stop Time Status Last Admin Dose Admin Aspirin (Aspirin Chew) 243 mg NOW STAT PO 09/16/17 11:04 09/16/17 11:05 DC 09/16/17 11:57 243 MG Nitroglycerin (Nitrostat Tab) 0.4 mg STK-MED ONCE .ROUTE 09/16/17 11:55 09/16/17 11:56 DC 09/16/17 11:55 0.4 MG Heparin Sodium/ Dextrose (Heparin 25,000 Unit/500ml D5W) 25,000 unit STK-MED ONCE .ROUTE 09/16/17 11:55 09/16/17 11:56 DC 09/16/17 12:01 25,000 UNIT Midazolam HCl (Versed Inj) 2 mg STK-MED ONCE .ROUTE 09/16/17 12:50 09/16/17 12:51 DC 09/16/17 14:07 1 MG Fentanyl Citrate (Fentanyl Inj) 100 mcg STK-MED ONCE .ROUTE 09/16/17 12:50 09/16/17 12:51 DC 09/16/17 14:07 25 MCG Heparin Sodium (Porcine) (Heparin Iv Bolus) 10,000 unit STK-MED ONCE .ROUTE 09/16/17 12:50 09/16/17 12:51 DC 09/16/17 14:07 7,000 UNIT ECG Indication: chest pain Rate (beats per minute): 65 Rhythm: normal sinus Findings: other (normal intervals, no STS or TWI) Change: Repeat EKG: normal sinus rhythm 63 beats per minute, normal intervals, lateral depressions V4-V6 ED Course 1053: The patient was evaluated in room C10. A complete history and physical exam was performed. 1111: I discussed the patients case with Dr. Douglas, Cardiology. He is going to come evaluate the patient. 1122: I spoke to Dr. Douglas, Cardiology at this time. He states that the patient needs to have a cardiac catheterization today. He states that he will follow up with the patient. 1208: I discussed the patients case with Vishal Horne. He is going to evaluate the patient for further treatment. Medical Decision Differential diagnosis: Etiologies such as cardiac ischemia, aortic dissection, pulmonary embolism, pneumonia, pneumothorax, musculoskeletal, infections, pericarditis, myocarditis , esophageal rupture, gastrointestinal, as well as others were entertained. The patient is an 87 year old white female with a past medical history of hyperlipidemia, TIA, hypertension who presents to the ED with a cc of intermittent chest pain beginning yesterday. The patient was seen and evaluated at the bedside. Patient does have some risk factors and concerning story for chest pain. Patient states that she had chest pain beginning yesterday substernal pressure-like in nature. Patient states that the pain did radiate to the right jaw. She did have some nausea but without any vomiting and one episode of diaphoresis. Patient states she did take nitroglycerin this morning as well as a baby aspirin stated that nitroglycerin helped relieve her pain. Initial EKG maybe showed some subtle depressions laterally however a repeat EKG completed approximately 30 minutes later did show some dynamic changes w/ more impressive lateral ST depressions. Given the patient's dynamic changes I did discuss these findings with the on- call automotive power electronics engineer who came to evaluate the patient in person. I also did discuss that the patient was seen back in June for chest pain at which point she had an echocardiogram completed which did show that she had some TR and MR, mild diastolic dysfunction and an LVEF of approximately 50-60%. Patient was given some additional aspirin to complete a full dose aspirin. There was a heart alert in the hospital so the patient cannot be evaluated immediately with a left heart catheterization thus the decision was made for ACS protocol. I discussed the patient further with the automotive power electronics engineer Dr. Douglas who was helping to arrange a likely left heart catheterization later today. Review of patient's blood work showed +troponin. I also discussed the patient with the hospitalist who agreed help initiate ACS protocol and further workup and management of the patient. Medication Reconcilliation Current Medication List: was personally reviewed by me Blood Pressure Screening Patient's blood pressure: Normal blood pressure Blood pressure disposition: Did not require urgent referral Consults Time Called: 1108 Consulting Physician: Dr. Douglas, Cardiology Returned Call: 1111 I discussed the patients case with Dr. Douglas, Cardiology. He is going to come evaluate the patient. Additional Consults: Time Called: 1153 Consulted Physician: Vishal Horne Returned Call: 1208 Additional Comments: I discussed the patients case with Vishal Horne. He is going to evaluate the patient for further treatment. Impression Primary Impression: NSTEMI (non-ST elevated myocardial infarction) Additional Impression: Atypical chest pain Critical Care I have personally spent greater than 38 minutes of critical care time in the direct management of this patient. This includes bedside care, interpretation of diagnostic studies, and testing, discussion with consultants, patient, and family members, and other required patient management activities. This 38 minutes is in excess of all separately billable procedures. Scribe Attestation The scribe's documentation has been prepared under my direction and personally reviewed by me in its entirety. I confirm that the note above accurately reflects all work, treatment, procedures, and medical decision making performed by me. Departure Information Dispostion Being Evaluated By Hospitalist Referrals Roberta Garcia M.D. (PCP) Problem Qualifiers
[2017-09-16] MEDS ORDERED: ASPIRIN 324 MG CHEW PO STA (11:04)
[2017-09-16 11:20] LABS: HEMATOCRIT 36.5 % (37-47); MEAN CELL VOLUME 94.1 fL (80-100); MEAN CORPUSCULAR HEMOGLOBIN 31.7 pg (25-34); MEAN CORPUSCULAR HGB CONC 33.7 g/dl (32-36); MEAN PLATELET VOLUME 9.7 fL (7.4-10.4); PLATELET COUNT 305 K/uL (130-400); RED BLOOD COUNT 3.88 M/uL (4.2-5.4); WHITE BLOOD COUNT 14.51 K/uL (4.8-10.8)
[2017-09-16 11:30] LABS: PARTIAL THROMBOPLASTIN RATIO 1.1; PROTHROMBIN TIME (PATIENT) 10.7 SECONDS (9.0-12.0)
[2017-09-16 11:32] LABS: ALT/SGPT 14 U/L (12-78); BLOOD UREA NITROGEN 19 mg/dl (7-18); BUN/CREATININE RATIO 19.6 (10-20); CALCIUM 9.5 mg/dl (8.5-10.1); CARBON DIOXIDE 26 mmol/L (21-32); CHLORIDE 100 mmol/L (98-107); CREATININE 0.98 mg/dl (0.60-1.20); GLUCOSE 108 mg/dl (70-99); MAGNESIUM 2.1 mg/dl (1.8-2.4); POTASSIUM 3.6 mmol/L (3.5-5.1); SODIUM 134 mmol/L (136-145)
--- NOTE | 2017-09-16 11:32 | DIAGNOSTIC IMAGING REPORT ---
CHEST ONE VIEW PORTABLE CLINICAL HISTORY: Chest pain. COMPARISON STUDY: Chest radiograph June 23, 2017. FINDINGS: Lung volumes are normal. No pneumothorax or pleural effusion is present. Cardiomediastinal silhouette is normal. Pulmonary vascularity is normal. There is no consolidation to suggest pneumonia. Mild biapical opacities are unchanged. IMPRESSION: No acute cardiopulmonary findings. Electronically signed by: Yogesh Gardner M.D. 09/16/2017 11:31 AM Dictated Date/Time: 09/16/2017 11:29 AM
[2017-09-16] MEDS ORDERED: NITROGLYCERIN 0.4 MG SL PER TAB CHARGE SL STA (11:41)
[2017-09-16] MEDS ORDERED: METOPROLOL TARTRATE 1 MG/ML VIAL IV STA (11:44)
[2017-09-16 11:49] LABS: BASO % 0.1 %; BASO ABS # 0.02 K/uL (0-0.2); COMPLETE YES; ECHINOCYTES 1+; EOS % 0.6 %; IG% 0.1 %; LYMPH % 10.8 %; LYMPH ABS # 1.56 K/uL (1.2-3.4); MONO % 7.8 %; NEUT % 80.6 %
[2017-09-16 11:54] LABS: ALKALINE PHOSPHATASE 73 U/L (45-117); AST/SGOT 20 U/L (15-37); PHOSPHORUS 2.6 mg/dl (2.5-4.9)
[2017-09-16] MEDS ORDERED: NITROGLYCERIN 0.4 MG SL PER TAB CHARGE ONE (11:55)
[2017-09-16] MEDS ORDERED: HEPARIN 25000 UNIT/500 ML D5W ONE (11:55)
--- NOTE | 2017-09-16 12:26 | Cardiology Consultation ---
Cardiology Consultation Date of Consultation: Sep 16, 2017 History of Present Illness Maria M Reynolds is an 87 year old female seen in cardiology consultation per the request of Dr. Suggs for the evaluation of an acute coronary syndrome. The patient's primary care provider is Dr. Roberta Garcia [facility]. She does not follow with cardiology on a routine basis. The patient is accompanied by her daughter, Sivan, who is at the bedside today. The patient reports 3 days of waxing and waning jaw and midline chest pressure. She reportedly initially had some right-sided jaw pain on , after describing having had a very busy holiday. She had company over from out of state, and she states that things overwhelmed her. She had slept poorly the night. Yesterday she had waxing and waning chest discomfort was intense at times. Last evening she took a sublingual nitroglycerin which palliated her symptoms and she was able to sleep for about 6 hours overnight. This morning however she woke up with recurrent chest discomfort with an intensity of 4-5 out of 10. Initial EKG took place on 09/16/17 at 10:22 AM revealed sinus rhythm at 65 bpm, with subtle ST segment changes in the inferior and lateral leads which were not present on prior tracings performed in June,. Laboratory studies were drawn, and the patient underwent repeat EKG at 10:56 AM which revealed significant evolution with profound lateral ST segment depression specifically in leads V4 to V6 that had progressed compared to 10:22 AM and more subtle ST segment changes in the inferior leads as well as leads V2 and V3. I had discussed the patient's case with a telephone Dr. Suggs, and came to see the patient in person. Her laboratory studies are not back yet when I first arrived, and the patient described a 5/10 intensity chest discomfort. Her blood work has now come back, she has a mildly elevated WBC count at 14, stable hemoglobin at 12.3, stable calculated GFR of 52.6 mL per minute per meter squared, and a mild troponin I elevation of 0.129pg/ml. Past Medical/Surgical History Problem List: Medical Problems: (1) HYPERTENSION NOS (2) Peripheral vascular disease (3) TRANS CEREB ISCHEMIA NOS History Past Medical History: 1. TIA, 2007 2. Hypertension 3. Dyslipidemia 4. Post polio syndrome 5. Peripheral arterial disease with high-grade multilevel femoral artery stenosis noted on CT angiogram and lower extremity duplex in 2012, treated conservatively without intervention Past Surgical History: 1. Remote appendectomy 2. Remote section Social History: Nonsmoker Denies alcohol use Lives independently with family nearby Family History: Positive for both stroke, diabetes, and abdominal aortic aneurysm Review Of Systems See above for pertinent positives & negatives. A total of 10 systems reviewed and were otherwise negative. Allergies Coded Allergies: Hydrochlorothiazide (Verified Allergy, Unknown, ., 06/23/17) Medications Reported Home Medications Medications Dose Route/Sig Max Daily Dose Days Date Category Dose Instructions Tiazac (Diltiazem HCl) 180 Mg Capcr 180 Mg PO DAILY 09/16/17 Reported Bumex (Bumetanide) 1 Mg Tab 1 Mg PO DAILY 06/23/17 Reported Combigan (Brimonidine Tartrate-Timolol M) 1 Maite Maite 1 Drop OPB BID 01/28/13 Reported Aspirin Ec (Aspirin) 81 Mg Tab 81 Mg PO DAILY 01/28/13 Reported Azopt Oph (Brinzolamide) 1 % Ame 1 Drop OPB BID 09/28/12 Reported Nitrostat (Nitroglycerin) 0.4 Mg Sub 0.4 Mg UT PRN 09/28/12 Reported ONE TABLET UNDER THE TONGUE EVERY 5 MINUTES NEEDED FOR CHEST PAIN. MAXIMUM OF 3 DOSES IN 15 MINUTES. Prinivil (Lisinopril) 20 Mg Tab 40 Mg PO QPM 09/28/12 Reported Physical Exam Vital Signs (Last 8hrs): Last 8 Hrs Date Time Temp Pulse Resp B/P (MAP) Pulse Ox O2 Delivery O2 Flow Rate FiO2 09/16/17 12:07 69 20 93/43 97 Room Air 09/16/17 11:58 68 18 133/67 97 Room Air 09/16/17 10:42 73 09/16/17 10:40 98 Room Air 09/16/17 10:40 67 18 159/72 98 Room Air 09/16/17 10:27 36.7 63 18 118/63 95 Room Air General Appearance: Alert and Oriented x3. NAD. Head: Normocephalic Atraumatic. Eyes: PERRLA, EOMI, conjunctiva and sclera clear Neck: Supple. No carotid bruits noted. No JVD. No HJD. Respiratory: Breath sounds clear to auscultation bilaterally. No w/r/r. Cardiovascular: Reg rate and rhythm. S1 and S2 noted. 2/6 systolic murmur heard best at the left sternal border and apex Abdomen: Normal bowel sounds, soft nontender. no abdominal bruits. Extremities: No edema, no clubbing or cyanosis. distal pulses 2/4 bilaterally. Neuro: No focal deficits. Psychiatric: Normal affect. Data Last Resulted 09/16/17 11:04 Red Blood Count 3.88, Mean Corpuscular Volume 94.1, Mean Corpuscular Hemoglobin 31.7, Mean Corpuscular Hemoglobin Concent 33.7, Mean Platelet Volume 9.7, Neutrophils (%) (Auto) 80.6, Lymphocytes (%) (Auto) 10.8, Monocytes (%) (Auto) 7.8, Eosinophils (%) (Auto) 0.6, Basophils (%) (Auto) 0.1, Neutrophils # (Auto) 11.69, Lymphocytes # (Auto) 1.56, Monocytes # (Auto) 1.13, Eosinophils # (Auto) 0.09, Basophils # (Auto) 0.02 Last Resulted 09/16/17 11:04 Past 24 Hours Test 09/16/17 11:04 Range/Units Prothromb Time International Ratio 1.0 0.9-1.1 Prothrombin Time 10.7 9.0-12.0 SECONDS Troponin I 0.129 *H 0-0.045 ng/ml EKG as noted in history of present illness. Telemetry in stable sinus rhythm. Portable chest x-ray, radiology report summarizes no acute cardiac findings Bedside echocardiogram, grossly normal left ventricular wall motion on limited bedside analysis. Normal right ventricular chamber size and systolic function. Normal LVEF. Assessment & Plan Impression: 87-year-old female 1. Non-ST segment elevation myocardial infarction 2. Hypertension 3. Dyslipidemia 4. History of mitral valve prolapse with mild to moderate mitral regurgitation , severe tricuspid regurgitation, normal LVEF, prior echocardiogram, 06/24/17 and recommendations: Recommendations: The patient's presenting symptoms very concerning for angina, she has developed profound lateral ST segment depression, and her troponin is mildly elevated. Would appear that she has had waxing and waning symptoms consistent with angina for 3 days. The kidneys is her resting wall motion is normal, and her troponin is only mildly elevated, so I think her event is still in progress rather than this having been a late presentation. Orders: Nothing by mouth except medications Aspirin 324 grams to be chewed Sublingual nitroglycerin 0.4 mg 1 now IV unfractionated heparin, standard protocol, no loading bolus IV metoprolol held due to HR in 50's. The patient's symptoms were improved status post subungual nitroglycerin in the emergency room. Echocardiogram is in progress, and repeat EKG will be performed. It is a Monday afternoon. Given the patient's profound symptoms, and EKG changes, I would recommend definitive coronary angiography today with PCI if amenable. The patient is agreeable to this. Just prior to my arrival to see the patient, emergency cardiac catheterization laboratory team had been activated for a procedure on another patient, and therefore the team is already in route. Will proceed with plan to stabilize this patient with medications, and proceed with cardiac cath today depending on her progress. Case discussed with Dr Suggs of the ED (on phone and in person) and Dr Barber of interventional cardiology (by phone). Will arrange for admission to [facility] service, will require ICU level bed post cardiac cath.
[2017-09-16] MEDS ORDERED: NITROGLYCERIN/D5W 100MCG/ML 20ML SYR ONE (12:50)
[2017-09-16] MEDS ORDERED: FENTANYL CITRATE INJ 50 MCG/1 ML 2 ML VIAL ONE (12:50)
[2017-09-16] MEDS ORDERED: NiCARDipine HCL INJ 2.5 MG/ML 10 ML AMP ONE (12:50)
[2017-09-16] MEDS ORDERED: HEPARIN SOD (PORCINE) 1000 UNIT/ML 10 ML VIAL ONE (12:50)
[2017-09-16] MEDS ORDERED: MIDAZOLAM HCL 1 MG/ML 2ML VIAL ONE (12:50)
[2017-09-16] MEDS ORDERED: ONDANSETRON INJ 2 MG/ML 2 ML VIAL IV PRN (13:00)
[2017-09-16] MEDS ORDERED: NITROGLYCERIN 0.4 MG SL PER TAB CHARGE SL PRN (13:00)
[2017-09-16] MEDS ORDERED: ALUMINUM/MAGNESIUM/SIMETH (MAALOX MAX) 30 ML UDC PO PRN (13:00)
[2017-09-16] MEDS ORDERED: NITROGLYCERIN 0.4 MG SL PER TAB CHARGE UT SCH (13:00)
[2017-09-16] MEDS ORDERED: ACETAMINOPHEN 325 MG TAB PO PRN (13:00)
[2017-09-16] MEDS ORDERED: MoRPHine SULFATE 2 MG/ML CARP IV PRN (13:00)
--- NOTE | 2017-09-16 13:05 | Procedure Note ---
Pre-Mod Sedation Assessment General Date of Moderate Sedation: Sep 16, 2017. Vital Signs: Vital Signs Past 12 Hours Date Time Temp Pulse Resp B/P (MAP) Pulse Ox O2 Delivery O2 Flow Rate FiO2 09/16/17 12:54 67 20 151/69 98 Room Air 09/16/17 12:20 57 20 118/67 98 09/16/17 12:07 69 20 93/43 97 Room Air 09/16/17 12:00 97 Room Air 09/16/17 11:58 68 18 133/67 97 Room Air 09/16/17 10:42 73 09/16/17 10:40 98 Room Air 09/16/17 10:40 67 18 159/72 98 Room Air 09/16/17 10:27 36.7 63 18 118/63 95 Room Air Review Cardiovascular: regular rate, rhythm, no edema Abdomen: normal bowel sounds, non tender Lungs: chest non-tender, lungs clear Airway Class: III Pre-Sedation Airway Assessment Oral Cavity: Dentures Able to Visualize Vocal Cords: No Short Thick Neck: No Hx of Sleep Apnea: No Smoking Status: Never Smoker Mallampati Classification: Class III ASA Classification: Class III Procedure Planning Contraindications-for Mod Sed: None Yes Notes The planned sedation has been discussed with the patient and consent obtained. I have identified the patient, determined the appropriateness of sedation and have assessed the patient immediately prior to the procedure. All medicine(s) and interventions are by my order.
[2017-09-16] MEDS ORDERED: METOPROLOL TARTRATE 1 MG/ML VIAL IV PRN (13:15)
--- NOTE | 2017-09-16 13:26 | ECHOCARDIOGRAM REPORT ---
*NOTICE TO RECEIVING REPUBLICAN AGENCY This information is strictly Confidential and protected under [place] law. [place] law prohibits you from making any further disclosure of this information unless further disclosure is expressly permitted by the written consent of the person to whom it pertains or is authorized by law. A general authorization for the release of medical or other information is not sufficient for this purpose. Hospital accepts no responsibility if the information is made available to any other person, INCLUDING THE PATIENT. Interpretation Summary * Name: ARIA HANDLEY Study Date: 09/16/2017 11:55 AM BP: 93/43 mmHg * Patient Location: .[facility]\S\S230\S\1 HR: 69 * : 1930 (M/d/yyyy) Gender: Female Height: 62 in * Age: 87 yrs Ethnicity: CA Weight: 111 lb * Ordering Physician: Giovanni Douglas * Referring Physician: Self, Referred * Performed By: Purvi Chan RDCS * * Reason For Study: Acute Myocardial Infarction * BSA: 1.5 m2 * The study was technically adequate. * -- Conclusions -- * There is mild concentric left ventricular hypertrophy. * No regional wall motion abnormalities noted. * The LV Ejection Fraction = 55-60%. * The right ventricle is normal in size and function. * The right atrium is moderately dilated. * Mild aortic regurgitation. * Mild prolapse of the anterior mitral valve leaflet is present along with moderate prolapse of the posterior mitral valve leaflet. * Mild to moderate mitral regurgitation is present. * There is moderate to severe tricuspid regurgitation. * Doppler findings do not suggest pulmonary hypertension. Procedure Details * A complete two-dimensional transthoracic echocardiogram was performed (2D, M-mode, Doppler and color flow Doppler). Left Ventricle * The left ventricle is normal in size. * There is mild concentric left ventricular hypertrophy. * Left ventricular systolic function is normal. * Ejection Fraction = 55-60%. * The left ventricular wall motion is normal. * No regional wall motion abnormalities noted. Right Ventricle * The right ventricle is normal in size and function. * The right ventricular systolic function is normal as assessed by tricuspid annular plane systolic excursion (TAPSE) (normal >1.5 cm). Atria * The left atrial size is normal. * A prominent eustachian valve is noted. * The right atrium is moderately dilated. * There is no evidence of atrial septal defect, but resolution does not allow assessment for a patent foramen ovale. Mitral Valve * There is mild mitral annular calcification. * There is no mitral valve stenosis. * Mild prolapse of the anterior mitral valve leaflet is present along with moderate prolapse of the posterior mitral valve leaflet. Mild to moderate mitral regurgitation is present. Tricuspid Valve * The tricuspid valve is normal. * There is no tricuspid stenosis. * There is moderate to severe tricuspid regurgitation. * Doppler findings do not suggest pulmonary hypertension. Aortic Valve * The aortic valve is trileaflet. * Aortic stenosis is absent. * Mild aortic regurgitation. Pulmonic Valve * The pulmonary valve is inadequately visualized, but the Doppler data is adequate for interpretation. * Pulmonic stenosis is absent. * Moderate pulmonic valvular regurgitation. Great Vessels * The aortic root and proximal ascending aorta are normal sized. Pericardium/Pleural * There is no pericardial effusion. Great Vessels * Normal inferior vena cava diameter and respiratory variation suggests normal central venous pressure. Left Ventricular Diastolic Function * Grade I diastolic dysfunction, (abnormal relaxation pattern). MMode 2D Measurements and Calculations IVSd 1.3 cm IVSs 1.4 cm LVIDd 3.1 cm LVIDs 2.1 cm LVPWd 1.3 cm LVPWs 1.6 cm IVS/LVPW 0.98 FS 30.3 % EDV(Teich) 36.6 ml ESV(Teich) 14.9 ml EF(Teich) 59.2 % EDV(cubed) 28.5 ml ESV(cubed) 9.6 ml EF(cubed) 66.2 % % IVS thick 12.6 % % LVPW thick 23.1 % LV mass(C)d 124.4 grams LV mass(C)dI 83.6 grams/m\S\2 LV mass(C)s 106.3 grams LV mass(C)sI 71.4 grams/m\S\2 SV(Teich) 21.7 ml SI(Teich) 14.6 ml/m\S\2 SV(cubed) 18.9 ml SI(cubed) 12.7 ml/m\S\2 Ao root diam 2.5 cm Ao root area 4.8 cm\S\2 ACS 1.5 cm LA dimension 2.6 cm LA/Ao 1.0 LVAd ap4 20.0 cm\S\2 LVLd ap4 6.5 cm EDV(MOD-sp4) 53.3 ml EDV(sp4-el) 52.8 ml LVAs ap4 11.0 cm\S\2 LVLs ap4 5.3 cm ESV(MOD-sp4) 19.8 ml ESV(sp4-el) 19.1 ml EF(MOD-sp4) 62.9 % EF(sp4-el) 63.8 % LVAd ap2 17.7 cm\S\2 LVLd ap2 6.2 cm EDV(MOD-sp2) 43.0 ml EDV(sp2-el) 43.1 ml LVAs ap2 11.1 cm\S\2 LVLs ap2 5.4 cm ESV(MOD-sp2) 20.4 ml ESV(sp2-el) 19.4 ml EF(MOD-sp2) 52.5 % EF(sp2-el) 55.0 % LVLd %diff -4.37 % EDV(MOD-bp) 49.4 ml LVLs %diff 1.4 % ESV(MOD-bp) 20.3 ml EF(MOD-bp) 58.9 % SV(MOD-sp4) 33.5 ml SI(MOD-sp4) 22.5 ml/m\S\2 SV(MOD-sp2) 22.6 ml SI(MOD-sp2) 15.2 ml/m\S\2 SV(MOD-bp) 29.1 ml SI(MOD-bp) 19.5 ml/m\S\2 SV(sp4-el) 33.7 ml SI(sp4-el) 22.6 ml/m\S\2 SV(sp2-el) 23.7 ml SI(sp2-el) 15.9 ml/m\S\2 Doppler Measurements and Calculations MV E max skyla 39.9 cm/sec MV A max skyla 68.5 cm/sec MV E/A 0.58 MV V2 max 102.4 cm/sec MV max PG 4.2 mmHg MV V2 mean 58.5 cm/sec MV mean PG 1.5 mmHg MV V2 VTI 38.5 cm MV P1/2t max skyla 78.9 cm/sec MV P1/2t 129.2 msec MVA(P1/2t) 1.7 cm\S\2 MV dec slope 178.8 cm/sec\S\2 MV dec time 0.28 sec Ao V2 max 170.8 cm/sec Ao max PG 11.7 mmHg Ao max PG (full) 8.2 mmHg AI max skyla 436.8 cm/sec AI max PG 76.3 mmHg AI dec slope 222.6 cm/sec\S\2 AI P1/2t 574.6 msec LV V1 max PG 3.4 mmHg LV V1 max 92.7 cm/sec PA V2 max 86.7 cm/sec PA max PG 3.0 mmHg PI max skyla 158.4 cm/sec PI max PG 10.0 mmHg PI dec slope 120.5 cm/sec\S\2 PI P1/2t 385.0 msec TR max skyla 261.1 cm/sec
[2017-09-16] MEDS ORDERED: CLOPIDOGREL BISULFATE 300 MG TAB PO ONE (14:07)
--- NOTE | 2017-09-16 14:13 | Procedure Note ---
Post-Mod Sedation Assessment General Date of Moderate Sedation Sep 16, 2017. Vital Signs: Vital Signs Past 12 Hours Date Time Temp Pulse Resp B/P (MAP) Pulse Ox O2 Delivery O2 Flow Rate FiO2 09/16/17 12:54 67 20 151/69 98 Room Air 09/16/17 12:20 57 20 118/67 98 09/16/17 12:07 69 20 93/43 97 Room Air 09/16/17 12:00 97 Room Air 09/16/17 11:58 68 18 133/67 97 Room Air 09/16/17 10:42 73 09/16/17 10:40 98 Room Air 09/16/17 10:40 67 18 159/72 98 Room Air 09/16/17 10:27 36.7 63 18 118/63 95 Room Air Review - Discharge Criteria Vital Signs Stable: Yes Alert/Oriented/Conversant: Yes Returned to Baseline Mental St: Yes Nausea Absent/Minimal: Yes Pain/Discomfort/Absent/Minimal: Yes Normal/Baseline Respirations: Yes Active Bleeding?: No Pt Received D/C Instructions: N/A Prescriptions Given: None Specific Proced. D/C Criteria Distal Pulses Present (Cardiac: Yes Groin site assessed-Card Cath: N/A Voided Prior To Discharge: N/A Discharged Patients Adult Escort/Transportation: Yes
--- NOTE | 2017-09-16 14:35 | Cardiac Catheterization ---
Procedure Note Procedure Date Sep 16, 2017. Pre-Procedure Diagnosis Non STEMI AUC Score 8 Post-Procedure Diagnosis Severe CAD, Successful PCI, Normal Intracardiac Pressures Procedure(s) Performed Coronary Angiography, Left Heart Cath, Drug Eluting Stent Senior Research Executive nancy Food Service Driver(s) issa Estimated Blood Loss 15 Medication(s) Clopidogrel, Fentanyl, Heparin, Nicardipine, Nitroglycerin, Versed, Lidocaine 1% Summary of Findings Indication: High-risk NSTEMI Access: 6Fr slender right radial artery Catheters: Coleman, EBU3.5 Findings: LM - Luminal irregularities LAD - Moderate caliber vessel, calcified proximally, 40% diffuse proximal to mid segment disease; distal severe small vessel disease as wraps around apex. - 2nd diagonal with 80% ostial stenosis Circumflex - Dominant, large caliber vessel, 20-30% proximal disease; 30% stenosis mid segment disease after take-off of OM2. - OM2 acutely occluded at ostium - Small L-PDA with 50% ostial/proximal disease. RCA - Small, non-dominant; 90% proximal stenosis in small proximal marginal. LVEDP - 4 -- PCI -- Antithrombotic therapy: Heparin Procedure: LM cannulated with EBU3.5 guide Whisper wire passed into OM2 across lesion into distal vessel Ostial OM2 lesion predilated with 2.0 compliant balloon Prowater placed into distal circumflex/PLB Dilated lesion stented with 2.25 x 12 Joaquin SAM Stent post-dilated with stent balloon. IC vasodilators administered for spasm Post procedure HENRIQUE 3 flow, stent well expanded with minimal residual stenosis and no apparent cardiac complications. Arterial Closure: TR Band Summary: 1. Acutely occluded OM2 2. Moderate proximal to mid calcified 40% LAD stenosis 3. Severe small vessel disease in apical LAD, 2nd diagonal, right acute marginal 4. Normal intracardiac filling pressure 5. 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 Douglas Consult cardiac Rehab Hemodynamics Rest Ao: 111/49/76 Final Ao: 110/41/69 LV: 121/4 Recommendations PCI without planned CABG Specimens None Radiation Exposure (mGy) 1334 Contrast (mls) 165 Visi Fluids (cc crystalloids) 103 Drains None Anesthesia Moderate Procedural Complication(s) None Disposition ICU ACC Data Cardiac Status Clinical evaluation leading to the procedure CAD Presntation: Non STEMI Anginal Classification: CCS IV Heart Failure: No, NYHA Class: CCS I Cardiogenic Shock w/in 24Hrs: No Cardiac Arrest w/in 24Hrs: No Imaging studies past 6 months: Yes Stress studies past 6 months: No Closure Device Percutaneous Entry Location: Radial Closure Device: Radial Band Recommendations: PCI without planned CABG PCI Indication: PCI for high risk Non-STEMI Lesion Segment Name: OM2 Culprit Artery: Yes Stenosis Prior to Rx (%): 100 Chronic Total Occlusion: No IVUS: No FFR: No Pre-Procedure HENRIQUE Flow: 0 Previously Treated Lesion: No Lesion Complexity: High/C Lesion Length (mm): 10 Thrombus Present: Yes Bifurcation Lesion: Yes Guidewire Across Lesion: Yes Guidewire: Stenosis Post-Procedure (%): 0 Post-Procedure HENRIQUE Flow: 3 Device(s) Deployed: Yes Intraprocedure Events Significant Dissection: No Perforation: No
[2017-09-16] MEDS ORDERED: ATORVASTATIN 40 MG TAB PO ONE (14:40)
[2017-09-16] MEDS ORDERED: SODIUM CHLORIDE 0.9% 1000ML 1,000 ML IV SCH ×2 (14:42→14:45)
[2017-09-16] MEDS ORDERED: NURSING VERBAL MED ORDER ONE (15:45)
[2017-09-16] MEDS: BRIMONIDINE TARTRATE-TIMOLOL M 1 DROP BTL OP SCH (20:50)
[2017-09-16] MEDS: BRINZOLAMIDE (AZOPT) OPS 10 ML BTL OPB SCH (20:51)
[2017-09-16] MEDS: LISINOPRIL 20 MG TAB PO SCH (20:52)
[2017-09-16] MEDS ORDERED: NON-FORMULARY MEDICATION (Brimonidine Tartrate-Timolol M (Combigan) 1 DROP) OPB SCH (21:00)
--- NOTE | 2017-09-16 21:17 | Critical Care Consultation ---
Critical Care Consultation Date of Consultation: Sep 16, 2017. Attending Physician: Casper Irvin MD Reason for Consultation: s/p Cardiac Catheterization History of Present Illness This is a 87 yo F w/ h/o HLD, TIA, HTN, presenting to ED with intermittent 4-5/ 10 central Chest pain, EKG with subtle ST segment changes per Cardiology in the inferior and lateral leads. Repeat EKG showed ST depression in (V4 to V6). Troponin of .129. Cardiology consulted for NSTEMI. Patient was sent to lab support tech and was found to have occluded OM2, Moderate proximal to mid calcified 40% LAD stenosis and Severe small vessel disease in apical LAD, 2nd diagonal, right acute marginal. Patient was transferred to ICU for continued monitoring with loading dose of Plavix and placed on dual platelet therapy x 1 yr in addition to stain, Beta-tima, VANGIE-I. Past Medical/Surgical History Past Medical History: 1. TIA, 2007 2. Hypertension 3. Dyslipidemia 4. Post polio syndrome 5. Peripheral arterial disease with high-grade multilevel femoral artery stenosis noted on CT angiogram and lower extremity duplex in 2011, treated conservatively without intervention Past Surgical History: 1. Remote appendectomy 2. Remote section Family History Stroke Diabetes Abdominal aortic aneurysm Social History Smoking Status: Never Smoker Drug Use: none Marital Status: Occupation Status: retired Allergies Coded Allergies: Hydrochlorothiazide (Verified Allergy, Unknown, ., 06/23/17) Home Medications Scheduled Aspirin (Aspirin Ec), 81 MG PO DAILY Brimonidine Tartrate-Timolol M (Combigan), 1 DROP OPB BID Brinzolamide Oph (Azopt Oph), 1 DROP OPB BID Bumetanide (Bumex), 1 MG PO DAILY Diltiazem Hcl Ext Rel (Tiazac), 180 MG PO DAILY Lisinopril (Prinivil), 40 MG PO QPM Nitroglycerin (Nitrostat), 0.4 MG UT PRN Current Inpatient Medications Current Inpatient Medications Medications (Trade) Dose Ordered Sig/Shahrair Route Start Time Stop Time Status Last Admin Dose Admin Atorvastatin Calcium (Lipitor Tab) 40 mg QAM PO 09/17/17 09:00 10/17/17 08:59 Acetaminophen (Tylenol Tab) 650 mg Q4H PRN PO 09/16/17 13:00 10/16/17 12:59 Al Hydrox/Mg Hydrox/Simethicone (Maalox Max Susp) 15 ml Q4H PRN PO 09/16/17 13:00 10/16/17 12:59 Ondansetron HCl (Zofran Inj) 4 mg Q6H PRN IV 09/16/17 13:00 10/16/17 12:59 Morphine Sulfate (MoRPHine SULFATE INJ) 2 mg Q2H PRN IV 09/16/17 13:00 09/30/17 12:59 Aspirin (Ecotrin Tab) 81 mg DAILY PO 09/17/17 09:00 10/17/17 08:59 Brinzolamide (Azopt) 1 drops BID OPB 09/16/17 21:00 10/16/17 20:59 Lisinopril (Zestril Tab) 40 mg QPM PO 09/16/17 21:00 10/16/17 20:59 Nitroglycerin (Nitrostat Tab) 0.4 mg PRN UT 09/16/17 13:00 10/16/17 12:59 Metoprolol Tartrate (Lopressor Iv) 2.5 mg Q6 PRN IV 09/16/17 13:15 10/16/17 13:14 Sodium Chloride 1,000 ml @ 125 mls/hr Q8H IV 09/16/17 14:45 09/16/17 20:44 09/16/17 15:07 125 MLS/HR Clopidogrel Bisulfate (plAVix TAB) 75 mg QAM PO 09/17/17 09:00 10/17/17 08:59 Miscellaneous Information (Order Awaiting Action) 1 ea QS N/A 09/16/17 16:00 10/16/17 15:59 09/16/17 16:29 1 EA Review of Systems Constitutional: No fever, No chills, No weakness Respiratory: No cough, No shortness of breath Cardiovascular: No chest pain, No edema, No palpitations Abdomen: No pain, No nausea, No vomiting Musculoskeletal: + swelling (Rt hand) Genitourinary - Female: No dysuria, No hematuria Integumentary: No rash, No itch Physical Exam Date Time Temp Pulse Resp B/P (MAP) Pulse Ox O2 Delivery O2 Flow Rate FiO2 09/16/17 16:30 Room Air 09/16/17 16:23 63 170/78 (108) 100 Room Air 09/16/17 15:53 58 18 161/70 (100) 99 Room Air 09/16/17 15:31 36.6 56 133/64 (87) 100 Room Air 09/16/17 15:16 61 131/68 (89) 99 09/16/17 15:01 58 148/59 (88) 100 Room Air 09/16/17 14:46 36.5 61 18 137/63 (87) 99 Room Air 09/16/17 14:15 59 18 121/64 (83) 99 Room Air 09/16/17 14:05 60 18 117/59 (78) 100 Room Air 09/16/17 12:54 67 20 151/69 98 Room Air 09/16/17 12:20 57 20 118/67 98 09/16/17 12:07 69 20 93/43 97 Room Air 09/16/17 12:00 97 Room Air 09/16/17 11:58 68 18 133/67 97 Room Air 09/16/17 10:42 73 09/16/17 10:40 98 Room Air 09/16/17 10:40 67 18 159/72 98 Room Air 09/16/17 10:27 36.7 63 18 118/63 95 Room Air General Appearance: well-appearing, WD/WN Eyes: PERRLA, EOMI, sclerae normal Respiratory: breath sounds normal, clear to auscultation, clear to percussion, no respiratory distress Cardiovasular: regular rate/rhythm, no murmur, no gallop, normal peripheral pulses Abdomen: non tender, normal bowel sounds, no masses, no guarding Upper Extremities: edema (Rt hand) Lower Extremities: no edema, no deformity Neuro: alert, oriented x 3, normal speech Psychiatric: normal affect Laboratory Results Last 24 Hours Test 09/16/17 11:04 09/16/17 13:28 09/16/17 13:50 09/16/17 14:58 White Blood Count 14.51 K/uL Red Blood Count 3.88 M/uL Hemoglobin 12.3 g/dL Hematocrit 36.5 % Mean Corpuscular Volume 94.1 fL Mean Corpuscular Hemoglobin 31.7 pg Mean Corpuscular Hemoglobin Concent 33.7 g/dl Platelet Count 305 K/uL Mean Platelet Volume 9.7 fL Neutrophils (%) (Auto) 80.6 % Lymphocytes (%) (Auto) 10.8 % Monocytes (%) (Auto) 7.8 % Eosinophils (%) (Auto) 0.6 % Basophils (%) (Auto) 0.1 % Neutrophils # (Auto) 11.69 K/uL Lymphocytes # (Auto) 1.56 K/uL Monocytes # (Auto) 1.13 K/uL Eosinophils # (Auto) 0.09 K/uL Basophils # (Auto) 0.02 K/uL RDW Standard Deviation 49.6 fL RDW Coefficient of Variation 14.4 % Immature Granulocyte % (Auto) 0.1 % Immature Granulocyte # (Auto) 0.02 K/uL Echinocytes 1+ Prothrombin Time 10.7 SECONDS Prothromb Time International Ratio 1.0 Activated Partial Thromboplast Time 27.6 SECONDS Partial Thromboplastin Ratio 1.1 Sodium Level 134 mmol/L Potassium Level 3.6 mmol/L Chloride Level 100 mmol/L Carbon Dioxide Level 26 mmol/L Anion Gap 8.0 mmol/L Blood Urea Nitrogen 19 mg/dl Creatinine 0.98 mg/dl Est Creatinine Clear Calc Drug Dose 33.4 ml/min Estimated GFR () 61.0 Estimated GFR (Non- 52.6 BUN/Creatinine Ratio 19.6 Random Glucose 108 mg/dl Calcium Level 9.5 mg/dl Phosphorus Level 2.6 mg/dl Magnesium Level 2.1 mg/dl Total Bilirubin 0.4 mg/dl Direct Bilirubin < 0.1 mg/dl Aspartate Amino Transf (AST/SGOT) 20 U/L Alanine Aminotransferase (ALT/SGPT) 14 U/L Alkaline Phosphatase 73 U/L Troponin I 0.129 ng/ml Pro-B-Type Natriuretic Peptide 1012 pg/ml Total Protein 7.6 gm/dl Albumin 3.8 gm/dl Lipase 239 U/L Kaolin Activated Coagulation Time 131 SECONDS 268 SECONDS Bedside Glucose 112 mg/dl Assessment & Plan 87 yo F with HTN, HLD, TIA presenting with CP, found to have ST Depression V4 -V6 on repeat EKG, and elevate Troponin, currently s/p Cardiac catheterization a 40% occlusion and occluded OM2, LAD, SAM placement transferred to ICU for close monitoring SENIOR SOLUTIONS ARCHITECT/Neuro: GCS: 15 Pupils: Pinpoint, reactive, Focal Signs: None Sedation/pain control: PRN Nitroglycerine Neurologic prophylaxis: Not indicated Respiratory: Chest X-ray: Reviewed, Result: no acute abnormality Respiratory prophylaxis: None Cardiovascular: NSTEMI s/p Catheterization, PCI and SAM placement, HTN, HLD NSTEMI: s/p cath, PCI with SAM, Given loading dose of plavix, Started on ASA 81 mg, Lisinopril, Lipitor Per Cardiology: trend troponins until peak Rhythm: Sinus EKG: Sinus bradycardia, ST Depression V4-V6, QTc 445 ECHO: Echo dated 09/16 : mild concentric LVH, No regional wall motion abnormalities, LV EF 55-60%, right atrium is moderately dilated., Mild AR, mild MVP mild to mod. mitral regurgitation, moderate to severe tricuspid regurgitation. Fluids/Renal: IV Fluids: Fluids from intravenous medications Castellanos: None GI/Nutrition: Feeding:AHA Diet Prophylaxis: None Endocrine: Last 24 hour glucose:108 Insulin protocol: Yes; Drip: No Hematology: Hemoglobin 12.3 Leukocytosis 14.51m likely stress demargination, Continue to monitor DVT prophylaxis: SCD's Infectious Disease/Immunology: Tmax: 36.6 Cultures: MRSA Swab negative Resident Physician Supervision Note: Dr. Bhakta was resident physician during care of patient. I separately evaluated patient and did history and exam. I discussed the case with the resident and generally agree with the findings and plan. Post cardiac cath, monitoring right hand for swelling and hematoma formation and extension. Documented By: Avery De La Rosa DO Resident Tracking Resident Involvement: Resident Care Provided Care Provided: Adult Hospital Medicine
[2017-09-17] VITALS (13 sets, daily range): BP systolic 104–159; BP diastolic 50–90; PULSE 56–71; TEMP 36.4–37.1; O2SAT 96–100
--- NOTE | 2017-09-17 05:46 | Critical Care Progress Note ---
Critical Care Progress Note Date of Service Sep 17, 2017. ICU Day ICU Day Number: [address] De La Rosa Subjective No acute events overnight. Patient denies Chest pain, SOB, palpitation, presyncope., syncope. She does complain about Right UE swelling and bruising s/ p catheterization. She denies numbness or tingling Objective General Appearance: well-appearing, WD/WN Eyes: PERRLA, EOMI, sclerae normal Respiratory: breath sounds normal, clear to auscultation, clear to percussion, no respiratory distress Cardiovascular: regular rate/rhythm, no murmur, no gallop, normal peripheral pulses Abdomen: non tender, normal bowel sounds, no masses, no guarding Upper Extremities: edema (Rt hand, forearm) ecchymoses, non-tender Lower Extremities: no edema, no deformity Neuro: alert, oriented x 3, normal speech Psychiatric: normal affect Current SOFA Score SOFA Score Response (Comments) Value Platelets (x10) > 150 0 Bilirubin (mg/dL) < 1.2 0 Cortez Coma Score 15 0 Level of Hypotension No Hypotension 0 Creatinine (mg/dL) < 1.2 0 Total 0 Assessment & Plan 87 yo F with HTN, HLD, TIA presenting with CP, found to have ST Depression V4 -V6 on repeat EKG, and elevate Troponin, currently s/p Cardiac catheterization a 40% occlusion and occluded OM2, LAD, SAM placement transferred to ICU for close monitoring PBX 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/Neuro: GCS: 15 Pupils: Pinpoint, reactive, Focal Signs: None Sedation/pain control: PRN Nitroglycerine Neurologic prophylaxis: Not indicated Respiratory: Chest X-ray: Reviewed, Result: no acute abnormality Respiratory prophylaxis: None Cardiovascular: NSTEMI s/p Catheterization, PCI and SAM placement, HTN, HLD NSTEMI: s/p cath, PCI with SAM, Given loading dose of plavix, Troponins have peaked and are trending down s/p cath Con't ASA 81 mg, Lisinopril, Lipitor Rhythm: Sinus EKG: Sinus bradycardia, ST Depression V4-V6, QTc 445 ECHO: Echo dated 09/16 : mild concentric LVH, No regional wall motion abnormalities, LV EF 55-60%, right atrium is moderately dilated., Mild AR, mild MVP mild to mod. mitral regurgitation, moderate to severe tricuspid regurgitation. Fluids/Renal: IV Fluids: Fluids from intravenous medications Castellanos: None GI/Nutrition: Feeding:AHA Diet Prophylaxis: None Endocrine: Last 24 hour glucose:95-108 Insulin protocol: Yes; Drip: No Hematology: Hemoglobin 10.9/32.3 Leukocytosis likely stress demargination, Continue to monitor DVT prophylaxis: SCD's Infectious Disease/Immunology: Tmax: 36.7 Cultures: MRSA Swab negative Disposition: Transfer to Telemetry Resident Physician Supervision Note: Dr. Bhakta was resident physician during care of patient. I separately evaluated patient and did history and exam. I discussed the case with the resident and generally agree with the findings and plan. Right hand hematoma improved, stable for downgraded to telemetry status Documented By: Avery De La Rosa DO Consults & Procedures Consultants: Cardiology Procedures: CHEST ONE VIEW PORTABLE CLINICAL HISTORY: Chest pain. COMPARISON STUDY: Chest radiograph June 23, 2017. FINDINGS: Lung volumes are normal. No pneumothorax or pleural effusion is present. Cardiomediastinal silhouette is normal. Pulmonary vascularity is normal. There is no consolidation to suggest pneumonia. Mild biapical opacities are unchanged. IMPRESSION: No acute cardiopulmonary findings. Data Medications: Current Inpatient Medications Medications (Trade) Dose Ordered Sig/Shahriar Route Start Time Stop Time Status Last Admin Dose Admin Atorvastatin Calcium (Lipitor Tab) 40 mg QAM PO 09/17/17 09:00 10/17/17 08:59 Acetaminophen (Tylenol Tab) 650 mg Q4H PRN PO 09/16/17 13:00 10/16/17 12:59 Al Hydrox/Mg Hydrox/Simethicone (Maalox Max Susp) 15 ml Q4H PRN PO 09/16/17 13:00 10/16/17 12:59 Ondansetron HCl (Zofran Inj) 4 mg Q6H PRN IV 09/16/17 13:00 10/16/17 12:59 Morphine Sulfate (MoRPHine SULFATE INJ) 2 mg Q2H PRN IV 09/16/17 13:00 09/30/17 12:59 Aspirin (Ecotrin Tab) 81 mg DAILY PO 09/17/17 09:00 10/17/17 08:59 Brinzolamide (Azopt) 1 drops BID OPB 09/16/17 21:00 10/16/17 20:59 09/16/17 20:51 1 DROPS Lisinopril (Zestril Tab) 40 mg QPM PO 09/16/17 21:00 10/16/17 20:59 09/16/17 20:52 40 MG Nitroglycerin (Nitrostat Tab) 0.4 mg PRN UT 09/16/17 13:00 10/16/17 12:59 Metoprolol Tartrate (Lopressor Iv) 2.5 mg Q6 PRN IV 09/16/17 13:15 10/16/17 13:14 Clopidogrel Bisulfate (plAVix TAB) 75 mg QAM PO 09/17/17 09:00 10/17/17 08:59 Brimonidine/ Timolol (Combigan 0.2%/ 0.5% Oph Solution) 1 drop BID OP 09/16/17 21:00 10/16/17 20:59 09/16/17 20:50 1 DROP Vital Signs: Date Time Temp Pulse Resp B/P (MAP) Pulse Ox O2 Delivery O2 Flow Rate FiO2 09/17/17 04:01 36.4 60 16 118/59 (78) 100 09/17/17 04:00 Room Air 09/17/17 03:01 56 17 125/54 (77) 100 09/17/17 02:01 71 124/90 (101) 99 09/17/17 01:01 57 116/55 (75) 98 09/17/17 00:01 36.6 56 109/50 (69) 99 09/16/17 23:59 Room Air 09/16/17 23:01 59 107/50 (69) 99 09/16/17 22:01 58 95/49 (64) 98 09/16/17 21:01 36.5 64 145/73 (97) 100 09/16/17 20:00 Room Air 09/16/17 18:23 60 20 136/63 (87) 99 Room Air 09/16/17 17:24 61 18 171/71 (104) 100 Room Air 09/16/17 16:30 Room Air 09/16/17 16:23 63 170/78 (108) 100 Room Air 09/16/17 15:53 58 18 161/70 (100) 99 Room Air 09/16/17 15:31 36.6 56 133/64 (87) 100 Room Air 09/16/17 15:16 61 131/68 (89) 99 09/16/17 15:01 58 148/59 (88) 100 Room Air 09/16/17 14:46 36.5 61 18 137/63 (87) 99 Room Air 09/16/17 14:15 59 18 121/64 (83) 99 Room Air 09/16/17 14:05 60 18 117/59 (78) 100 Room Air 09/16/17 12:54 67 20 151/69 98 Room Air 09/16/17 12:20 57 20 118/67 98 09/16/17 12:07 69 20 93/43 97 Room Air 09/16/17 12:00 97 Room Air 09/16/17 11:58 68 18 133/67 97 Room Air 09/16/17 10:42 73 09/16/17 10:40 98 Room Air 09/16/17 10:40 67 18 159/72 98 Room Air 09/16/17 10:27 36.7 63 18 118/63 95 Room Air Laboratory Results: Last 24 Hours Test 09/16/17 11:04 09/16/17 13:28 09/16/17 13:50 09/16/17 14:58 White Blood Count 14.51 K/uL Red Blood Count 3.88 M/uL Hemoglobin 12.3 g/dL Hematocrit 36.5 % Mean Corpuscular Volume 94.1 fL Mean Corpuscular Hemoglobin 31.7 pg Mean Corpuscular Hemoglobin Concent 33.7 g/dl Platelet Count 305 K/uL Mean Platelet Volume 9.7 fL Neutrophils (%) (Auto) 80.6 % Lymphocytes (%) (Auto) 10.8 % Monocytes (%) (Auto) 7.8 % Eosinophils (%) (Auto) 0.6 % Basophils (%) (Auto) 0.1 % Neutrophils # (Auto) 11.69 K/uL Lymphocytes # (Auto) 1.56 K/uL Monocytes # (Auto) 1.13 K/uL Eosinophils # (Auto) 0.09 K/uL Basophils # (Auto) 0.02 K/uL RDW Standard Deviation 49.6 fL RDW Coefficient of Variation 14.4 % Immature Granulocyte % (Auto) 0.1 % Immature Granulocyte # (Auto) 0.02 K/uL Echinocytes 1+ Prothrombin Time 10.7 SECONDS Prothromb Time International Ratio 1.0 Activated Partial Thromboplast Time 27.6 SECONDS Partial Thromboplastin Ratio 1.1 Sodium Level 134 mmol/L Potassium Level 3.6 mmol/L Chloride Level 100 mmol/L Carbon Dioxide Level 26 mmol/L Anion Gap 8.0 mmol/L Blood Urea Nitrogen 19 mg/dl Creatinine 0.98 mg/dl Est Creatinine Clear Calc Drug Dose 33.4 ml/min Estimated GFR () 61.0 Estimated GFR (Non- 52.6 BUN/Creatinine Ratio 19.6 Random Glucose 108 mg/dl Calcium Level 9.5 mg/dl Phosphorus Level 2.6 mg/dl Magnesium Level 2.1 mg/dl Total Bilirubin 0.4 mg/dl Direct Bilirubin < 0.1 mg/dl Aspartate Amino Transf (AST/SGOT) 20 U/L Alanine Aminotransferase (ALT/SGPT) 14 U/L Alkaline Phosphatase 73 U/L Troponin I 0.129 ng/ml Pro-B-Type Natriuretic Peptide 1012 pg/ml Total Protein 7.6 gm/dl Albumin 3.8 gm/dl Lipase 239 U/L Kaolin Activated Coagulation Time 131 SECONDS 268 SECONDS Bedside Glucose 112 mg/dl Test 09/16/17 21:14 09/17/17 00:15 09/17/17 04:44 09/17/17 04:59 Total Creatine Kinase 225 U/L Creatine Kinase MB 17.9 ng/ml Creatine Kinase MB Ratio 8.0 Troponin I 6.100 ng/ml Bedside Glucose 107 mg/dl Resident Tracking Resident Involvement: Resident Care Provided Care Provided: Adult Hospital Medicine
[2017-09-17 06:14] LABS: BASO % 0.3 %; BASO ABS # 0.02 K/uL (0-0.2); COMPLETE YES; EOS % 1.4 %; HEMATOCRIT 32.3 % (37-47); IG% 0.2 %; LYMPH ABS # 1.06 K/uL (1.2-3.4); MEAN CELL VOLUME 93.6 fL (80-100); MEAN CORPUSCULAR HEMOGLOBIN 31.6 pg (25-34); MEAN CORPUSCULAR HGB CONC 33.7 g/dl (32-36); MEAN PLATELET VOLUME 9.4 fL (7.4-10.4); NEUT % 71.1 %; PLATELET COUNT 230 K/uL (130-400); RED BLOOD COUNT 3.45 M/uL (4.2-5.4); WHITE BLOOD COUNT 6.62 K/uL (4.8-10.8)
[2017-09-17 06:42] LABS: BUN/CREATININE RATIO 15.1 (10-20); CALCIUM 8.3 mg/dl (8.5-10.1); CREATININE 0.76 mg/dl (0.60-1.20); MAGNESIUM 1.9 mg/dl (1.8-2.4); POTASSIUM 3.6 mmol/L (3.5-5.1)
[2017-09-17 06:47] LABS: CKMB/CK RATIO 6.1 (0-3.0); PHOSPHORUS 2.2 mg/dl (2.5-4.9)
[2017-09-17] MEDS: BRINZOLAMIDE (AZOPT) OPS 10 ML BTL OPB SCH ×2 (08:22→20:54)
[2017-09-17] MEDS: BRIMONIDINE TARTRATE-TIMOLOL M 1 DROP BTL OP SCH ×2 (08:23→20:54)
[2017-09-17] MEDS: CLOPIDOGREL BISULFATE 75 MG TAB PO SCH (08:23)
[2017-09-17] MEDS: ASPIRIN 81 MG ECTAB PO SCH (08:23)
[2017-09-17] MEDS: ATORVASTATIN 40 MG TAB PO SCH (08:23)
--- NOTE | 2017-09-17 09:30 | HISTORY & PHYSICAL EXAMINATION ---
DATE OF ADMISSION: 09/16/2017 CHIEF COMPLAINT: Chest pain. HISTORY OF PRESENT ILLNESS: This is an 87-year-old female with past medical history significant for hypertension, hyperlipidemia, peripheral artery disease, carotid stenosis, history of open angle glaucoma, presents with ongoing chest pain. The patient says she has lot of stress at home and couple of days ago night, she noticed right-sided jaw pain, but yesterday, then she had chest pain, 8/10 in severity. Even while resting, she had significant chest pain, but then she went to sleep and chest got resolved, but again in the night she had a similar kind of chest pain and jaw pain and one of her relative gave her nitro which took away the jaw pain and chest pain, but her blood pressure dropped but she did ok and went to sleep. In the morning she woke up with chest pressure, about 4 to 5/10 in severity and she was brought to the ER. During this episode, she also had some sweating, short of breath, but denies any dizziness, no blurred vision. No runny nose. No sore throat. No cough. No fever. No chills. No nausea. No abdominal pain. Somewhat constipated. Normal bladder movements. Appetite is okay, otherwise she is quite ambulatory. Currently, the pain is almost resolved in the ER, resting comfortably, hemodynamically stable.But in the ER, the initial EKG showed some subtle ST changes in the inferior and lateral leads. Repeat EKG showed significant ST depressions in lateral leads and also Troponin 0.12,.Because of ongoing symptoms and dynamic EKG changes the patient is planned for current cath today. ALLERGIES: HYDROCHLOROTHIAZIDE. PAST MEDICAL HISTORY: As mentioned above. PAST SURGICAL HISTORY: . MEDICATIONS: Cardizem-CD 180 mg p.o. daily, lisinopril 40 mg p.o. daily, Bumex 1 mg p.o. daily, Nitrostat 0.4 mg sublingual, gabapentin 100 mg p.o. b.i.d., Combigan solution 1 drop both eyes b.i.d., aspirin 81 mg p.o. daily, Azopt both eyes b.i.d. FAMILY HISTORY: Significant for father had diabetes. Mother had stroke. Sister has diabetes. SOCIAL HISTORY: Former smoker. No alcohol use. No drug use. . REVIEW OF SYMPTOMS: As per history of present illness, so other symptoms negative. PHYSICAL EXAMINATION: GENERAL: The patient is old and frail, not in distress. VITAL SIGNS: Temperature 36.7, pulse 67, respiratory rate 20, blood pressure 151/69, and O2 saturation 98% on room air. HEENT: No pallor. No icterus. Pupils are equal, round, and reactive to light. NECK: No JVD. No masses. No carotid bruits. CARDIOVASCULAR: S1, S2 heard. Regular rate and rhythm. No murmur. No gallop. RESPIRATORY: Normal AP diameter. No accessory muscle use. No wheezing. No crackles. ABDOMEN: Soft. Bowel sounds present. Nontender. No distention. CENTRAL NERVOUS SYSTEM: Cranial nerves II-XII grossly intact. Nonfocal. EXTREMITIES: No edema. No erythema. LABORATORY DATA: Sodium 134, potassium 3.6, chloride 100, bicarbonate 26, BUN 19, creatinine 0.9, serum glucose 108, calcium 9.5, magnesium 2.1. Total bilirubin 0.4, direct bilirubin less than 0.1. AST 20, ALT 24, alkaline phosphatase 73. Troponin I of 0.129. BNP 1012. Lipase 239. WBC 14.5, hemoglobin 12.3, hematocrit 36.5, and platelets 305. PT 10.7, INR 1, PTT 27.6. IMAGING STUDIES: Chest x-ray, no acute cardiopulmonary findings. EKG: The sinus bradycardia with a rate of 57, nonspecific ST changes seen in the inferior and lateral leads. Repeat EKG with normal sinus rhythm, rate of [address] depressions in V4, V5, and V6 leads. ASSESSMENT AND PLAN: This is an 87-year-old female who presents with chest pain. 1. Chest pain, not ST elevated myocardial infarction with dynamic EKG changes and elevation of troponin to 0.1. The patient was started on IV heparin. Continue aspirin and Cardiology on board and plan for cardiac catheterization today .Post cath management as per Cardiology. Post cat close monitor in the ICU, critical care has been notified 2. History of hypertension. Continue lisinopril. Holding the Cardizem CD as Cardiology is planning to change it to beta tima. IV Lopressor p.r.n. f/u fasting lipid profile. The patient will be started on high-dose statin post myocardial infarction. 3. History of glaucoma, continue home eye drops. 4. History of peripheral arterial disease. The patient is on aspirin. 5. Deep vein thrombosis prophylaxis, on IV heparin. 6. Disposition: Close monitoring in the ICU post cath. Level 1, full code. MTDD
--- NOTE | 2017-09-17 11:02 | Cardiology Follow-Up ---
Subjective General Date of Service: Sep 17, 2017. Chief Complaint: follow up chest pain, NSTEMI Pt evaluation today including: conversation w/ patient, physical exam History of Present Illness The patient is a 87 year old female seen in follow up. Pt feels well. No events overnight. Denies chest pain. Telemetry reveals stable SR. EKG this am , SR at 61 bpm, interval improvement in lateral ST changes compared to prior to cath. Allergies Coded Allergies: Hydrochlorothiazide (Verified Allergy, Unknown, ., 06/23/17) Social History Smoking Status: Never Smoker Hx Tobacco Use In Past Year?: No Hx Alcohol Use - Type And Amou: No Hx Substance Use - Type And Am: No Problem List Medical Problems: (1) Atypical chest pain Status: Acute (2) Hypertension Status: Acute (3) NSTEMI (non-ST elevated myocardial infarction) Status: Acute (4) Precordial chest pain Status: Acute Physical Exam Vital Signs Last Vital Signs Documentation Date Time Temp Pulse Resp B/P (MAP) Pulse Ox O2 Delivery O2 Flow Rate FiO2 09/17/17 08:00 100 Room Air 09/17/17 08:00 36.7 66 20 159/68 (98) Physical Exam Constitutional: Level of Distress: NAD Head: normocephalic ENMT: normal ENT inspection Neck: supple, trachea midline Lungs: Auscultation: no wheezing, no rales/crackles, no rhonchi Cardiovascular: Heart Auscultation: RRR, II/ EDGARDO Extremities: pertinent finding (no LE edema, R hand, forearm with echymosis, resolving hematoma) Assessment and Plan Assessment and Plan Impression: 87 y/o female 1. NSTEMI -s/p emergent cardiac catheterization 09/16/17, culprit 80% ostial stenosis of Diag 2, s/p PCI , 2.25 x 12 mm [place] SAM -residual 90% proximal stenosis in small RV marginal branch of RCA, otherwise non obstructive CAD -post procedure R forearm hematoma, improving clinically. Hand warm, no pain. 2. Normal LVEF, mitral valve prolapse with mild to moderate mitral regurgitation , severe tricuspid regurgitation 3. HTN 4. 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 Start metoprolol succinate [address] Hold home bumex for now, post cath/ contrast. Continue lisinopril, ASA, plavix, atorvastatin. OK to transfer out of ICU to telemetry unit. Laboratory Results Last 24 Hours Test 09/16/17 11:04 09/16/17 13:28 09/16/17 13:50 09/16/17 14:58 White Blood Count 14.51 K/uL Red Blood Count 3.88 M/uL Hemoglobin 12.3 g/dL Hematocrit 36.5 % Mean Corpuscular Volume 94.1 fL Mean Corpuscular Hemoglobin 31.7 pg Mean Corpuscular Hemoglobin Concent 33.7 g/dl Platelet Count 305 K/uL Mean Platelet Volume 9.7 fL Neutrophils (%) (Auto) 80.6 % Lymphocytes (%) (Auto) 10.8 % Monocytes (%) (Auto) 7.8 % Eosinophils (%) (Auto) 0.6 % Basophils (%) (Auto) 0.1 % Neutrophils # (Auto) 11.69 K/uL Lymphocytes # (Auto) 1.56 K/uL Monocytes # (Auto) 1.13 K/uL Eosinophils # (Auto) 0.09 K/uL Basophils # (Auto) 0.02 K/uL RDW Standard Deviation 49.6 fL RDW Coefficient of Variation 14.4 % Immature Granulocyte % (Auto) 0.1 % Immature Granulocyte # (Auto) 0.02 K/uL Echinocytes 1+ Prothrombin Time 10.7 SECONDS Prothromb Time International Ratio 1.0 Activated Partial Thromboplast Time 27.6 SECONDS Partial Thromboplastin Ratio 1.1 Sodium Level 134 mmol/L Potassium Level 3.6 mmol/L Chloride Level 100 mmol/L Carbon Dioxide Level 26 mmol/L Anion Gap 8.0 mmol/L Blood Urea Nitrogen 19 mg/dl Creatinine 0.98 mg/dl Est Creatinine Clear Calc Drug Dose 33.4 ml/min Estimated GFR () 61.0 Estimated GFR (Non- 52.6 BUN/Creatinine Ratio 19.6 Random Glucose 108 mg/dl Calcium Level 9.5 mg/dl Phosphorus Level 2.6 mg/dl Magnesium Level 2.1 mg/dl Total Bilirubin 0.4 mg/dl Direct Bilirubin < 0.1 mg/dl Aspartate Amino Transf (AST/SGOT) 20 U/L Alanine Aminotransferase (ALT/SGPT) 14 U/L Alkaline Phosphatase 73 U/L Troponin I 0.129 ng/ml Pro-B-Type Natriuretic Peptide 1012 pg/ml Total Protein 7.6 gm/dl Albumin 3.8 gm/dl Lipase 239 U/L Kaolin Activated Coagulation Time 131 SECONDS 268 SECONDS Bedside Glucose 112 mg/dl Test 09/16/17 21:14 09/17/17 00:15 09/17/17 06:00 09/17/17 06:03 Total Creatine Kinase 225 U/L 231 U/L Creatine Kinase MB 17.9 ng/ml 14.0 ng/ml Creatine Kinase MB Ratio 8.0 6.1 Troponin I 6.100 ng/ml 3.980 ng/ml Bedside Glucose 107 mg/dl 95 mg/dl White Blood Count 6.62 K/uL Red Blood Count 3.45 M/uL Hemoglobin 10.9 g/dL Hematocrit 32.3 % Mean Corpuscular Volume 93.6 fL Mean Corpuscular Hemoglobin 31.6 pg Mean Corpuscular Hemoglobin Concent 33.7 g/dl Platelet Count 230 K/uL Mean Platelet Volume 9.4 fL Neutrophils (%) (Auto) 71.1 % Lymphocytes (%) (Auto) 16.0 % Monocytes (%) (Auto) 11.0 % Eosinophils (%) (Auto) 1.4 % Basophils (%) (Auto) 0.3 % Neutrophils # (Auto) 4.71 K/uL Lymphocytes # (Auto) 1.06 K/uL Monocytes # (Auto) 0.73 K/uL Eosinophils # (Auto) 0.09 K/uL Basophils # (Auto) 0.02 K/uL RDW Standard Deviation 48.7 fL RDW Coefficient of Variation 14.1 % Immature Granulocyte % (Auto) 0.2 % Immature Granulocyte # (Auto) 0.01 K/uL Sodium Level 134 mmol/L Potassium Level 3.6 mmol/L Chloride Level 103 mmol/L Carbon Dioxide Level 24 mmol/L Anion Gap 7.0 mmol/L Blood Urea Nitrogen 11 mg/dl Creatinine 0.76 mg/dl Est Creatinine Clear Calc Drug Dose 43.1 ml/min Estimated GFR () 82.9 Estimated GFR (Non- 71.5 BUN/Creatinine Ratio 15.1 Random Glucose 95 mg/dl Calcium Level 8.3 mg/dl Phosphorus Level 2.2 mg/dl Magnesium Level 1.9 mg/dl
[2017-09-17] MEDS ORDERED: METOPROLOL SUCC 25MG EXT REL TAB PO ONE (11:15)
--- NOTE | 2017-09-17 16:56 | Progress Note ---
Internal Med Progress Note Date of Service: Sep 17, 2017. Provider Documentation: SUBJECTIVE: s/p cardiac cath yesterday and stent placement feeling fine today no more chest pains n sob afebrile eating fine OBJECTIVE: Vital Signs-as noted below Exam: General-alert and oriented. Not in distress ENT-Normal hearing Neck-no neck masses Lungs-CTA b/l no wheezing or crackles Heart-S1 and S2 heard. Regular rate and rhythm, no murmurs Abdomen-Soft Bowel sounds present no tenderness present no distension Extremities-No pedal edema no erythema bruise seen at cardiac cath site on right wrist Neuro-alert and awake moves extremities Lab data as noted below. ASSESSMENT & PLAN: This is an 87-year-old female who presents with chest pain. 1. Chest pain, not ST elevated myocardial infarction with dynamic EKG changes and elevation of troponin to 0.1. The patient was started on IV heparin. and s/p cardiac cath stent to 80% ostial stenosis. 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 2. History of hypertension. Continue lisinopril. stopped Cardizem and started on Toprol xl. will monitor. 3. Hyperlipidemia started on Lipitor. 4. History of glaucoma, continue home eye drops. 4. History of peripheral arterial disease. The patient is on aspirin. 5. Deep vein thrombosis prophylaxis, scds. 6. Disposition: transfer to tele pt/ot to be determined Level 1 full code Vital Signs: Date Time Temp Pulse Resp B/P (MAP) Pulse Ox O2 Delivery O2 Flow Rate FiO2 09/17/17 16:00 Room Air 09/17/17 12:36 36.4 70 20 105/57 (73) 97 Room Air 09/17/17 12:00 Room Air 09/17/17 08:00 100 Room Air 09/17/17 08:00 36.7 66 20 159/68 (98) 100 Room Air 09/17/17 06:01 66 16 104/71 (82) 100 09/17/17 05:01 67 22 146/68 (94) 100 09/17/17 04:01 36.4 60 16 118/59 (78) 100 09/17/17 04:00 Room Air 09/17/17 03:01 56 17 125/54 (77) 100 09/17/17 02:01 71 124/90 (101) 99 09/17/17 01:01 57 116/55 (75) 98 09/17/17 00:01 36.6 56 109/50 (69) 99 09/16/17 23:59 Room Air 09/16/17 23:01 59 107/50 (69) 99 09/16/17 22:01 58 95/49 (64) 98 09/16/17 21:01 36.5 64 145/73 (97) 100 09/16/17 20:00 Room Air 09/16/17 18:23 60 20 136/63 (87) 99 Room Air 09/16/17 17:24 61 18 171/71 (104) 100 Room Air Lab Results: Results Past 24 Hours Test 09/16/17 21:14 09/17/17 00:15 09/17/17 06:00 09/17/17 06:03 Range/Units Total Creatine Kinase 225 231 26-192 U/L Creatine Kinase MB 17.9 14.0 0.5-3.6 ng/ml Creatine Kinase MB Ratio 8.0 6.1 0-3.0 Troponin I 6.100 3.980 0-0.045 ng/ml Bedside Glucose 107 95 70-90 mg/dl White Blood Count 6.62 4.8-10.8 K/uL Red Blood Count 3.45 4.2-5.4 M/uL Hemoglobin 10.9 12.0-16.0 g/dL Hematocrit 32.3 37-47 % Mean Corpuscular Volume 93.6 80-100 fL Mean Corpuscular Hemoglobin 31.6 25-34 pg Mean Corpuscular Hemoglobin Concent 33.7 32-36 g/dl Platelet Count 230 130-400 K/uL Mean Platelet Volume 9.4 7.4-10.4 fL Neutrophils (%) (Auto) 71.1 % Lymphocytes (%) (Auto) 16.0 % Monocytes (%) (Auto) 11.0 % Eosinophils (%) (Auto) 1.4 % Basophils (%) (Auto) 0.3 % Neutrophils # (Auto) 4.71 1.4-6.5 K/uL Lymphocytes # (Auto) 1.06 1.2-3.4 K/uL Monocytes # (Auto) 0.73 0.11-0.59 K/uL Eosinophils # (Auto) 0.09 0-0.5 K/uL Basophils # (Auto) 0.02 0-0.2 K/uL RDW Standard Deviation 48.7 36.4-46.3 fL RDW Coefficient of Variation 14.1 11.5-14.5 % Immature Granulocyte % (Auto) 0.2 % Immature Granulocyte # (Auto) 0.01 0.00-0.02 K/uL Sodium Level 134 136-145 mmol/L Potassium Level 3.6 3.5-5.1 mmol/L Chloride Level 103 98-107 mmol/L Carbon Dioxide Level 24 21-32 mmol/L Anion Gap 7.0 3-11 mmol/L Blood Urea Nitrogen 11 7-18 mg/dl Creatinine 0.76 0.60-1.20 mg/dl Est Creatinine Clear Calc Drug Dose 43.1 ml/min Estimated GFR () 82.9 Estimated GFR (Non- 71.5 BUN/Creatinine Ratio 15.1 10-20 Random Glucose 95 70-99 mg/dl Calcium Level 8.3 8.5-10.1 mg/dl Phosphorus Level 2.2 2.5-4.9 mg/dl Magnesium Level 1.9 1.8-2.4 mg/dl
[2017-09-17] MEDS: LISINOPRIL 20 MG TAB PO SCH (20:55)
[2017-09-18 00:01] VITALS: O2SAT 100; O2SAT 98
[2017-09-18 03:33] VITALS: BP 146/74; PULSE 56; TEMP 37.1; O2SAT 94
[2017-09-18 06:30] LABS: BASO % 0.3 %; BASO ABS # 0.02 K/uL (0-0.2); COMPLETE YES; EOS % 3.3 %; HEMATOCRIT 33.8 % (37-47); IG% 0.2 %; LYMPH % 19.7 %; LYMPH ABS # 1.24 K/uL (1.2-3.4); MEAN CELL VOLUME 94.4 fL (80-100); MEAN CORPUSCULAR HEMOGLOBIN 31.3 pg (25-34); MEAN CORPUSCULAR HGB CONC 33.1 g/dl (32-36); MEAN PLATELET VOLUME 10.3 fL (7.4-10.4); MONO % 9.9 %; NEUT % 66.6 %; PLATELET COUNT 256 K/uL (130-400); RED BLOOD COUNT 3.58 M/uL (4.2-5.4); WHITE BLOOD COUNT 6.29 K/uL (4.8-10.8)
[2017-09-18 06:59] LABS: BUN/CREATININE RATIO 18.3 (10-20); CREATININE 1.02 mg/dl (0.60-1.20)
[2017-09-18 07:00] LABS: MAGNESIUM 2.2 mg/dl (1.8-2.4)
[2017-09-18 07:24] VITALS: BP 157/78; PULSE 64; TEMP 36.5; O2SAT 99
[2017-09-18] MEDS: ATORVASTATIN 40 MG TAB PO SCH (07:28)
[2017-09-18] MEDS: ASPIRIN 81 MG ECTAB PO SCH (07:28)
[2017-09-18] MEDS: CLOPIDOGREL BISULFATE 75 MG TAB PO SCH (07:28)
[2017-09-18] MEDS: BRINZOLAMIDE (AZOPT) OPS 10 ML BTL OPB SCH (07:30)
[2017-09-18] MEDS: BRIMONIDINE TARTRATE-TIMOLOL M 1 DROP BTL OP SCH (07:31)
[2017-09-18] MEDS ORDERED: METOPROLOL SUCC 25MG EXT REL TAB PO SCH (09:00)
[2017-09-18 11:03] VITALS: BP 106/64; PULSE 58; TEMP 36.3; O2SAT 99
--- NOTE | 2017-09-18 12:04 | Cardiology Follow-Up ---
Subjective General Date of Service: Sep 18, 2017. Chief Complaint: follow up chest pain, NSTEMI Pt evaluation today including: conversation w/ patient, conversation w/ family , physical exam History of Present Illness The patient is a 87 year old female seen in follow up, accompanied by her daughter. Denies chest pain. Telemetry reveals SR with rare PVCs. Allergies Coded Allergies: Hydrochlorothiazide (Verified Allergy, Unknown, ., 06/23/17) Social History Smoking Status: Never Smoker Hx Tobacco Use In Past Year?: No Hx Alcohol Use - Type And Amou: No Hx Substance Use - Type And Am: No Problem List Medical Problems: (1) Atypical chest pain Status: Acute (2) Hypertension Status: Acute (3) NSTEMI (non-ST elevated myocardial infarction) Status: Acute (4) Precordial chest pain Status: Acute Physical Exam Vital Signs Last Vital Signs Documentation Date Time Temp Pulse Resp B/P (MAP) Pulse Ox O2 Delivery O2 Flow Rate FiO2 09/18/17 08:00 Room Air 09/18/17 07:24 36.5 64 20 157/78 (104) 99 Physical Exam Constitutional: Level of Distress: NAD Head: normocephalic ENMT: normal ENT inspection Neck: supple, trachea midline Lungs: Auscultation: no wheezing, no rales/crackles, no rhonchi Cardiovascular: Heart Auscultation: RRR, II/ EDGARDO Extremities: pertinent finding (no LE edema, R hand, forearm with echymosis, resolving hematoma) Assessment and Plan Assessment and Plan Impression: 87 y/o female 1. NSTEMI -s/p emergent cardiac catheterization 09/16/17, culprit 80% ostial stenosis of Diag 2, s/p PCI , 2.25 x 12 mm Joaquin SAM -residual 90% proximal stenosis in small RV marginal branch of RCA, otherwise non obstructive CAD -post procedure R forearm hematoma, improving clinically. Hand warm, no pain. 2. Normal LVEF, mitral valve prolapse with mild to moderate mitral regurgitation , severe tricuspid regurgitation 3. HTN 4. 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 Prior home diltiazem discontinued , discharge her on Start metoprolol succinate [address]. Continue lisinopril, ASA, plavix, atorvastatin. Resume home bumex at home tomorrow. Outpt follow up with me in 1-3 weeks. Laboratory Results Last 24 Hours Test 09/18/17 05:30 White Blood Count 6.29 K/uL Red Blood Count 3.58 M/uL Hemoglobin 11.2 g/dL Hematocrit 33.8 % Mean Corpuscular Volume 94.4 fL Mean Corpuscular Hemoglobin 31.3 pg Mean Corpuscular Hemoglobin Concent 33.1 g/dl Platelet Count 256 K/uL Mean Platelet Volume 10.3 fL Neutrophils (%) (Auto) 66.6 % Lymphocytes (%) (Auto) 19.7 % Monocytes (%) (Auto) 9.9 % Eosinophils (%) (Auto) 3.3 % Basophils (%) (Auto) 0.3 % Neutrophils # (Auto) 4.19 K/uL Lymphocytes # (Auto) 1.24 K/uL Monocytes # (Auto) 0.62 K/uL Eosinophils # (Auto) 0.21 K/uL Basophils # (Auto) 0.02 K/uL RDW Standard Deviation 49.3 fL RDW Coefficient of Variation 14.3 % Immature Granulocyte % (Auto) 0.2 % Immature Granulocyte # (Auto) 0.01 K/uL Sodium Level 135 mmol/L Potassium Level 4.0 mmol/L Chloride Level 104 mmol/L Carbon Dioxide Level 23 mmol/L Anion Gap 8.0 mmol/L Blood Urea Nitrogen 19 mg/dl Creatinine 1.02 mg/dl Est Creatinine Clear Calc Drug Dose 32.1 ml/min Estimated GFR () 58.1 Estimated GFR (Non- 50.1 BUN/Creatinine Ratio 18.3 Random Glucose 95 mg/dl Calcium Level 9.0 mg/dl Magnesium Level 2.2 mg/dl
[2017-09-18] MEDS ORDERED: PLV75 PO (13:31)
[2017-09-18] MEDS ORDERED: LPT40 PO (13:31)
[2017-09-18] MEDS ORDERED: TPRSR25 PO (13:31)
--- NOTE | 2017-09-18 13:36 | Discharge Instructions ---
Discharge Instructions Date of Service Sep 18, 2017. Admission Reason for Admission: Nstemi, Non St Elevated Myocardial Infarction Discharge Discharge Diagnosis / Problem: NSTEMI Discharge Goals Goal(s): Decrease discomfort, Improve function Activity Recommendations Activity Limitations: resume your previous activity . Instructions / Follow-Up Instructions / Follow-Up FOLLOWUP WITH FAMILY DOCTOR Roberta Ramos ON Aug 12:45PM FOLLOWUP WITH CARDIOLOGY IN 2-3 WEEKS. STRONGLY ADVISE TO TAKE ALL MEDICATIONS REGULARLY PRESCRIBED. NOT TO MISS TAKING ASPIRIN AND PLAVIX DAILY(STENT MAY CLOSE IF NOT TAKING ASPIRIN AND PLAVIX ). BLOOD PRESSURE FOLLOWUP WITH FAMILY DOCTOR. PLEASE GO THROUGH MEDICATION LIST CAREFULLY. Current Hospital Diet Patient's current hospital diet: AHA Diet (Heart Healthy) Discharge Diet Recommended Diet: AHA Diet (Heart Healthy) Pending Studies Studies pending at discharge: no Medical Emergencies . Who to Call and When: Medical Emergencies: If at any time you feel your situation is an emergency, please call 911 immediately. . Non-Emergent Contact Non-Emergency issues call your: Primary Care Provider . . "Provider Documentation" section prepared by Casper Irvin. . VTE Core Measure Inpt VTE Proph given/why not?: Unfractionated heparin SQ (RECEIVED IV HEPARIN INTIALLY), SCD's
[2017-09-18 13:40] VITALS: BP 106/64; PULSE 58; TEMP 36.3; O2SAT 99
--- NOTE | 2017-09-18 16:30 | Progress Note ---
Internal Med Progress Note Date of Service: Sep 18, 2017. Provider Documentation: SUBJECTIVE: s/p cardiac cath and stent placement denies any more chest pains no sob afebrile ambulating fine wants to be discharged OBJECTIVE: Vital Signs-as noted below Exam: General-alert and oriented. Not in distress ENT-Normal hearing Neck-no neck masses Lungs-CTA b/l no wheezing or crackles Heart-S1 and S2 heard. Regular rate and rhythm, no murmurs Abdomen-Soft Bowel sounds present no tenderness present no distension Extremities-No pedal edema no erythema bruise seen at cardiac cath site on right wrist Neuro-alert and awake moves extremities Lab data as noted below. ASSESSMENT & PLAN: This is an 87-year-old female who presents with chest pain. 1. Chest pain, not ST elevated myocardial infarction with dynamic EKG changes and elevation of troponin to 0.1. The patient was started on IV heparin. and was s/p urgent cardiac cath and stent to 80% ostial stenosis.Also there is residual 90% proximal stenosis in small RV marginal branch of RCA Has non obstructive CAD in LAD and circumflex currently on Toprol xl, aspirin, Plavix, statin and lisinopril stable.Asymptomatic f/u with pcp and cardiology. 2. History of hypertension. Continue lisinopril. stopped Cardizem and started on Toprol xl. will monitor. 3. Hyperlipidemia started on Lipitor. 4. History of glaucoma, continue home eye drops. 4. History of peripheral arterial disease. The patient is on aspirin. Discharged home Vital Signs: Date Time Temp Pulse Resp B/P (MAP) Pulse Ox O2 Delivery O2 Flow Rate FiO2 09/18/17 13:40 36.3 58 20 99 Room Air 09/18/17 12:00 Room Air 09/18/17 11:03 36.3 58 20 106/64 (78) 99 Room Air 09/18/17 08:00 Room Air 09/18/17 07:24 36.5 64 20 157/78 (104) 99 Room Air 09/18/17 04:00 Room Air 09/18/17 03:33 37.1 56 18 146/74 (98) 94 Room Air 09/18/17 00:01 98 Room Air 09/17/17 23:40 36.4 69 18 105/57 (73) 98 Room Air 09/17/17 20:00 100 Room Air 09/17/17 19:48 37.1 71 18 131/71 (91) 100 Room Air 09/17/17 16:55 36.6 66 16 122/70 (87) 96 Room Air Lab Results: Results Past 24 Hours Test 09/18/17 05:30 Range/Units White Blood Count 6.29 4.8-10.8 K/uL Red Blood Count 3.58 4.2-5.4 M/uL Hemoglobin 11.2 12.0-16.0 g/dL Hematocrit 33.8 37-47 % Mean Corpuscular Volume 94.4 80-100 fL Mean Corpuscular Hemoglobin 31.3 25-34 pg Mean Corpuscular Hemoglobin Concent 33.1 32-36 g/dl Platelet Count 256 130-400 K/uL Mean Platelet Volume 10.3 7.4-10.4 fL Neutrophils (%) (Auto) 66.6 % Lymphocytes (%) (Auto) 19.7 % Monocytes (%) (Auto) 9.9 % Eosinophils (%) (Auto) 3.3 % Basophils (%) (Auto) 0.3 % Neutrophils # (Auto) 4.19 1.4-6.5 K/uL Lymphocytes # (Auto) 1.24 1.2-3.4 K/uL Monocytes # (Auto) 0.62 0.11-0.59 K/uL Eosinophils # (Auto) 0.21 0-0.5 K/uL Basophils # (Auto) 0.02 0-0.2 K/uL RDW Standard Deviation 49.3 36.4-46.3 fL RDW Coefficient of Variation 14.3 11.5-14.5 % Immature Granulocyte % (Auto) 0.2 % Immature Granulocyte # (Auto) 0.01 0.00-0.02 K/uL Sodium Level 135 136-145 mmol/L Potassium Level 4.0 3.5-5.1 mmol/L Chloride Level 104 98-107 mmol/L Carbon Dioxide Level 23 21-32 mmol/L Anion Gap 8.0 3-11 mmol/L Blood Urea Nitrogen 19 7-18 mg/dl Creatinine 1.02 0.60-1.20 mg/dl Est Creatinine Clear Calc Drug Dose 32.1 ml/min Estimated GFR () 58.1 Estimated GFR (Non- 50.1 BUN/Creatinine Ratio 18.3 10-20 Random Glucose 95 70-99 mg/dl Calcium Level 9.0 8.5-10.1 mg/dl Magnesium Level 2.2 1.8-2.4 mg/dl
--- NOTE | 2017-09-18 16:48 | Discharge Summary ---
Discharge Summary Date of Service Sep 18, 2017. Discharge Summary Admission Date: Sep 16, 2017 at 13:06 Discharge Date: Sep 18, 2017 Discharge Disposition: Home Principal Diagnosis: NSTEMI Secondary Diagnoses/Problems: hypertension, hyperlipidemia, peripheral artery disease, carotid stenosis, history of open angle glaucoma Procedures: CXR: No acute cardiopulmonary findings. ECHO: * There is mild concentric left ventricular hypertrophy. * No regional wall motion abnormalities noted. * The LV Ejection Fraction = 55-60%. * The right ventricle is normal in size and function. * The right atrium is moderately dilated. * Mild aortic regurgitation. * Mild prolapse of the anterior mitral valve leaflet is present along with moderate prolapse of the posterior mitral valve leaflet. * Mild to moderate mitral regurgitation is present. * There is moderate to severe tricuspid regurgitation. * Doppler findings do not suggest pulmonary hypertension. * * S/P CARDIAC CATH Consultations: CARDIOLOGY CRITICAL CARE Medication Reconciliation New Medications: Atorvastatin (Atorvastatin Calcium) 40 Mg Tab 40 MG PO QAM, #30 TAB 3 Refills Clopidogrel Bisulfate (Clopidogrel) 75 Mg Tab 75 MG PO QAM, #30 TAB 3 Refills Metoprolol Succinate (Metoprolol Succinate ER) 25 Mg Tabcr 25 MG PO QAM, #30 3 Refills Continued Medications: Aspirin (Aspirin Ec) 81 Mg Tab 81 MG PO DAILY Brimonidine Tartrate-Timolol M (Combigan) 1 Maite Maite 1 DROP OPB BID Brinzolamide Oph (Azopt Oph) 1 % Ame 1 DROP OPB BID, BTL Bumetanide (Bumex) 1 Mg Tab 1 MG PO DAILY, TAB Lisinopril (Prinivil) 20 Mg Tab 40 MG PO QPM, TAB Nitroglycerin (Nitrostat) 0.4 Mg Sub 0.4 MG UT PRN, BTL ONE TABLET UNDER THE TONGUE EVERY 5 MINUTES NEEDED FOR CHEST PAIN. MAXIMUM OF 3 DOSES IN 15 MINUTES. Discontinued Medications: Diltiazem Hcl Ext Rel (Tiazac) 180 Mg Capcr 180 MG PO DAILY, CAP Admission Information HPI (per Admitting provider): This is an 87-year-old female with past medical history significant for hypertension, hyperlipidemia, peripheral artery disease, carotid stenosis, history of open angle glaucoma, presents with ongoing chest pain. The patient says she has lot of stress at home and couple of days ago night, she noticed right-sided jaw pain, but yesterday, then she had chest pain, 8/10 in severity. Even while resting, she had significant chest pain, but then she went to sleep and chest got resolved, but again in the night she had a similar kind of chest pain and jaw pain and one of her relative gave her nitro which took away the jaw pain and chest pain, but her blood pressure dropped but she did ok and went to sleep. In the morning she woke up with chest pressure, about 4 to 5/10 in severity and she was brought to the ER. During this episode, she also had some sweating, short of breath, but denies any dizziness, no blurred vision. No runny nose. No sore throat. No cough. No fever. No chills. No nausea. No abdominal pain. Somewhat constipated. Normal bladder movements. Appetite is okay, otherwise she is quite ambulatory. Currently, the pain is almost resolved in the ER, resting comfortably, hemodynamically stable.But in the ER, the initial EKG showed some subtle ST changes in the inferior and lateral leads. Repeat EKG showed significant ST depressions in lateral leads and also Troponin 0.12,.Because of ongoing symptoms and dynamic EKG changes the patient is planned for current cath today. Physical Exam (per Admitting): GENERAL: The patient is old and frail, not in distress. VITAL SIGNS: Temperature 36.7, pulse 67, respiratory rate 20, blood pressure 151/69, and O2 saturation 98% on room air. HEENT: No pallor. No icterus. Pupils are equal, round, and reactive to light. NECK: No JVD. No masses. No carotid bruits. CARDIOVASCULAR: S1, S2 heard. Regular rate and rhythm. No murmur. No gallop. RESPIRATORY: Normal AP diameter. No accessory muscle use. No wheezing. No crackles. ABDOMEN: Soft. Bowel sounds present. Nontender. No distention. CENTRAL NERVOUS SYSTEM: Cranial nerves II-XII grossly intact. Nonfocal. EXTREMITIES: No edema. No erythema. Hospital Course This is an 87-year-old female who presents with chest pain. 1. Chest pain, not ST elevated myocardial infarction with dynamic EKG changes and elevation of troponin to 0.1. The patient was started on IV heparin. and was s/p urgent cardiac cath and stent to 80% ostial stenosis.Also there is residual 90% proximal stenosis in small RV marginal branch of RCA Has non obstructive CAD in LAD and circumflex currently on Toprol xl, aspirin, Plavix, statin and lisinopril stable.Asymptomatic f/u with pcp and cardiology. 2. History of hypertension. Continue lisinopril. stopped Cardizem and started on Toprol xl. will monitor. 3. Hyperlipidemia started on Lipitor. 4. History of glaucoma, continue home eye drops. 4. History of peripheral arterial disease. The patient is on aspirin. Discharged home Total time spent on discharge = 35MINUTES This includes examination of the patient, discharge planning, medication reconciliation, and communication with other providers. Discharge Instructions Discharge Instructions Date of Service Sep 18, 2017. Admission Reason for Admission: Nstemi, Non St Elevated Myocardial Infarction Discharge Discharge Diagnosis / Problem: NSTEMI Discharge Goals Goal(s): Decrease discomfort, Improve function Activity Recommendations Activity Limitations: resume your previous activity . Instructions / Follow-Up Instructions / Follow-Up FOLLOWUP WITH FAMILY DOCTOR Roberta Ramos ON Aug 12:45PM FOLLOWUP WITH CARDIOLOGY IN 2-3 WEEKS. STRONGLY ADVISE TO TAKE ALL MEDICATIONS REGULARLY PRESCRIBED. NOT TO MISS TAKING ASPIRIN AND PLAVIX DAILY(STENT MAY CLOSE IF NOT TAKING ASPIRIN AND PLAVIX ). BLOOD PRESSURE FOLLOWUP WITH FAMILY DOCTOR. PLEASE GO THROUGH MEDICATION LIST CAREFULLY. Current Hospital Diet Patient's current hospital diet: AHA Diet (Heart Healthy) Discharge Diet Recommended Diet: AHA Diet (Heart Healthy) Pending Studies Studies pending at discharge: no Medical Emergencies . Who to Call and When: Medical Emergencies: If at any time you feel your situation is an emergency, please call 911 immediately. . Non-Emergent Contact Non-Emergency issues call your: Primary Care Provider . . "Provider Documentation" section prepared by Casper Irvin. . VTE Core Measure Inpt VTE Proph given/why not?: Unfractionated heparin SQ (RECEIVED IV HEPARIN INTIALLY), SCD's
== END 2017-09-18 14:06 | disposition home or self-care (01) | DRG 247 ==
LOC: C.EDB 10:14 → C.MSICU 13:06 → ENRESERV 09-17 10:07 → C.2T 09-17 11:12
PROVIDERS: ADMIT Internal Medicine; ATTEND Internal Medicine
PROC: B211YZZ Fluoroscopy of Multiple Coronary Arteries using Other Contrast (ICD-10-PCS; principal; 2017-09-16 12:48)
PROC: 4A023N7 Measurement of Cardiac Sampling and Pressure, Left Heart, Percutaneous Approach (ICD-10-PCS; principal; 2017-09-16 12:48)
PROC: 0270346 Dilation of Coronary Artery, One Artery, Bifurcation, with Drug-eluting Intraluminal Device, Percutaneous Approach (ICD-10-PCS; principal; 2017-09-16 12:48)
DX: I21.4 Non-ST elevation (NSTEMI) myocardial infarction (principal); I97.630 Postprocedural hematoma of a circulatory system organ or structure following a cardiac catheterization; E78.5 Hyperlipidemia, unspecified; I10 Essential (primary) hypertension; I73.9 Peripheral vascular disease, unspecified; H40.9 Unspecified glaucoma; Z79.82 Long term (current) use of aspirin; Z79.899 Other long term (current) drug therapy; Z86.73 Personal history of transient ischemic attack (TIA), and cerebral infarction without residual deficits; Z82.3 Family history of stroke

== ENCOUNTER 2019-02-24 10:42 | Observation (INO) ==
--- OUTSIDE RECORDS SUMMARY | 2019-02-24 10:45 | External Medical Summary | Continuity of Care Document ---
:1930 Author Name Smita Hassan Address Unavailable Unavailable , Care Team Providers Name Role Phone Sunil Hassan Unavailable [email or web address] PCP, [email or web address] Unavailable Unavailable Problems Active medical history not documented Allergies and Adverse Reactions Allergy history not documented Medications Medications not documented Procedures Procedures not documented Immunizations Immunizations not documented Plan of Treatment Planned Observations Planned Goals not documented Results No Known Results Results not documented
[2019-02-24] MEDS ORDERED: SODIUM CHLORIDE 0.9% 500 ML IV SCH (11:00)
--- NOTE | 2019-02-24 11:00 | Emergency Department Note ---
Entered by Lynette Oakley acting as a scribe for Avery Ramirez MD History of Present Illness General Chief complaint: Syncope Time Seen by Provider: 02/24/19 10:46 Source: patient History of Present Illness Onset (ago): hour(s) (this morning) Location: head Pain Consistency: + other (episode) Quality: + other (syncope) Associated symptoms: + denies other symptoms (chest pain, shortness of breath, vomiting, confusion, nausea, diarrhea, fevers, illnesses, bowel changes, or urinary symptoms), + diaphoresis and + fever/chills (chills) The patient is a 88 year old female that is presenting to the Emergency Room with complaints of syncopal episode that occurred this morning while she was in faith. The patient reports that she was sitting down before service began and noticed some changes in her vision before she lost consciousness. The patients friend reports that the patient slumped over in her chair for around 5 seconds. The friend states that the patient was shaking slightly during the episode. She notes that she felt sweaty and cold when she regained consciousness. The patient denies falling out of the chair or experiencing any head trauma. She denies any chest pain, shortness of breath, vomiting, or confusion. She notes that she felt well when she woke up this morning. She denies any recent nausea, diarrhea, f jazmin, illnesses, bowel changes, or urinary symptoms. She notes that she had similar episode last Monday. She states that she had a stent placed about a year ago and currently takes Plavix. She denies any history of diabetes or atrial fibrillation. She reports that she has issues with high blood pressure. She denies any recent travel. Home Medications Home Medications Medication Instructions Recorded Confirmed Type aspirin [Aspirin Low Dose] 81 mg PO DAILY 02/24/19 02/24/19 History atorvastatin [Lipitor] 40 mg PO QAM 02/24/19 02/24/19 History brimonidine-timolol [Combigan] 1 drp OPB BID 02/24/19 02/24/19 History brinzolamide [Azopt] 1 drp OPB BID 02/24/19 02/24/19 History bumetanide 1 mg PO QAM 02/24/19 02/24/19 History carvedilol [Coreg] 3.125 mg PO BID 02/24/19 02/24/19 History clopidogrel [Plavix] 75 mg PO QAM 02/24/19 02/24/19 History isosorbide mononitrate 30 mg PO QAM 02/24/19 02/24/19 History lisinopril [Zestril] 20 mg PO BID 02/24/19 02/24/19 History nitroglycerin [Nitrostat] 0.4 mg SUBLINGUAL UD PRN 02/24/19 02/24/19 History Allergies Allergy/AdvReac Type Severity Reaction Status Date / Time hydrochlorothiazide Allergy Unknown . Verified 02/24/19 12:09 Past Med/Surg History Medical History Hypertension (Chronic) Peripheral vascular disease (Chronic 09/28/12) CAD in [place] artery (Chronic) CKD (chronic kidney disease) stage 3, GFR 30-59 ml/min (Chronic) Carotid stenosis (Chronic) Dyslipidemia (Chronic) History of non-ST elevation myocardial infarction (NSTEMI) (Chronic) History of poliomyelitis (Chronic) Open-angle glaucoma (Chronic) Renal artery stenosis (Chronic) Surgical History S/P coronary artery stent placement (Chronic) History of Family History Other Family history non-contributory Social History Preferred Language: Ethiopian Communication Ability: Effective Costing Manager Required: No Beliefs That Will Affect Care: Buddhist Buddhist Beliefs: Mormonism marital status: / Current Living Situation: Alone current occupational status: retired Other Information That Helps Us Care for You: No Feels Safe at Home: Yes Safety Concerns: Feels Safe At This Time Smoking Status: Never smoker Do You Dip or Chew Tobacco: No Hx Alcohol Use: No Hx Substance Use: No Review of Systems See HPI for pertinent positives & negatives. and A total of 10 systems reviewed and were otherwise negative Physical Exam Vital Signs Vital Signs - 24 hr 02/24/19 10:49 02/24/19 11:02 02/24/19 11:36 Temperature 36.5 C Temperature Source Oral Sepsis Recent Fever Within 48 Hours No Sepsis Action Taken by Nursing No Action Required Pulse Rate - Lying Pulse Rate - Sitting Pulse Rate - Standing Pulse Rate 61 54 L 61 Pulse Rate from SpO2 Sensor 52 L Pulse Rhythm Regular Respiratory Rate 23 14 23 Blood Pressure - Lying Blood Pressure - Sitting Blood Pressure- Standing Blood Pressure 177/71 H 139/60 Blood Pressure Mean 106 86 Blood Pressure Position Sitting Pulse Oximetry 99 95 99 Oxygen Delivery Method Room Air Room Air Room Air 02/24/19 12:01 02/24/19 12:31 02/24/19 13:00 Temperature Temperature Source Sepsis Recent Fever Within 48 Hours Sepsis Action Taken by Nursing Pulse Rate - Lying 59 L Pulse Rate - Sitting 66 Pulse Rate - Standing 64 Pulse Rate 64 55 L Pulse Rate from SpO2 Sensor 54 L 55 L Pulse Rhythm Respiratory Rate 17 23 Blood Pressure - Lying 149/65 H Blood Pressure - Sitting 151/66 H Blood Pressure- Standing 154/67 H Blood Pressure 149/57 H 137/70 Blood Pressure Mean 87 92 Blood Pressure Position Pulse Oximetry 99 99 Oxygen Delivery Method Room Air Room Air 02/24/19 13:02 02/24/19 13:04 02/24/19 13:06 Temperature Temperature Source Sepsis Recent Fever Within 48 Hours Sepsis Action Taken by Nursing Pulse Rate - Lying Pulse Rate - Sitting Pulse Rate - Standing Pulse Rate 63 60 64 Pulse Rate from SpO2 Sensor 61 66 Pulse Rhythm Respiratory Rate 18 19 24 Blood Pressure - Lying Blood Pressure - Sitting Blood Pressure- Standing Blood Pressure 189/63 H 149/65 H 154/67 H Blood Pressure Mean 105 93 96 Blood Pressure Position Pulse Oximetry 98 98 97 Oxygen Delivery Method Room Air Room Air Room Air 02/24/19 13:31 02/24/19 14:01 02/24/19 14:02 Temperature Temperature Source Sepsis Recent Fever Within 48 Hours Sepsis Action Taken by Nursing Pulse Rate - Lying Pulse Rate - Sitting Pulse Rate - Standing Pulse Rate 64 61 64 Pulse Rate from SpO2 Sensor 63 Pulse Rhythm Respiratory Rate 21 18 15 Blood Pressure - Lying Blood Pressure - Sitting Blood Pressure- Standing Blood Pressure 154/82 H 184/72 H 179/63 H Blood Pressure Mean 106 109 101 Blood Pressure Position Pulse Oximetry 100 99 100 Oxygen Delivery Method Room Air Room Air Room Air 02/24/19 14:19 Temperature Temperature Source Sepsis Recent Fever Within 48 Hours Sepsis Action Taken by Nursing Pulse Rate - Lying Pulse Rate - Sitting Pulse Rate - Standing Pulse Rate Pulse Rate from SpO2 Sensor Pulse Rhythm Respiratory Rate Blood Pressure - Lying Blood Pressure - Sitting Blood Pressure- Standing Blood Pressure Blood Pressure Mean Blood Pressure Position Pulse Oximetry Oxygen Delivery Method Room Air General: Non-ill appearing older female in no acute distress. HEENT: Normal cephalic atraumatic. Pupils are equal round and reactive to light. Extraocular movements are intact. Oropharynx is pink with moist mucous membranes. No swelling of the mouth lips or tongue. Neck: Supple with a midline trachea. No meningeal signs or stiffness, no JVD or bruits. No Stridor. Chest: Clear to auscultation bilaterally. No wheezes or rhonchi. No increased work of breathing. Heart: regular rate and rhythm. Abdomen: Soft nontender, nondistended without rebound guarding or rigidity. Extremities: No cyanosis clubbing or edema. No calf tenderness or asymmetry Spine/Back. Non tender to palpation. No CVA tenderness Skin: Good turgor without rashes. Neurologic exam: Cranial nerves two through 12 are intact. Motor and sensation are intact and symmetrical throughout. 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 Course 1048:The patient was evaluated in room B12B. A complete history and physical examination was performed. 1200: I reevaluated the patient who is resting comfortably. I discussed the patient's history with her adult children who arrived at the Emergency Room shortly after the patient. 1255: I updated that patient on her current lab results. 1306: I discussed the patient's case with SHERRY Bella, who will evaluate the patient for further management and care. 1315: Upon reevaluation, the patient is resting comfortably. I discussed laboratory and radiographic results with the patient. She verbalized agreement of the treatment plan. The patient will be evaluated for further management and care. Consultations Consultation #1: I discussed the patient's case with SHERRY Bella, who will evaluate the patient for further management and care. Time: 13:06 Administered Medications Discontinued Medications Sodium Chloride (Nss) 500 mls @ 999 mls/hr IV .Q31M JUAN JOSÉ Stop: 02/24/19 11:30 Last Infusion: 02/24/19 12:10 Dose: 0 mls/hr Documented by: [id number] Admin: 02/24/19 11:36 Dose: 999 mls/hr Documented by: [id number] Medical Decision Making Differential Diagnosis Differential diagnosis includes: Etiologies such as syncope, arrhythmia, acute coronary syndrome, anemia, electrolyte or metabolic abnormalities as well as others were entertained. Medical Records Attestation: I reviewed the patient's medical records. Home Medications Current Medication List: was personally reviewed by me Laboratory Data Attestation: I reviewed the patient's lab results. Result diagrams: 02/24/19 11:36 02/24/19 11:36 Lab Results 02/24/19 02/24/19 Range/Units 11:36 11:36 WBC 8.17 (4.8-10.8) K/uL RBC 3.86 L (4.2-5.4) M/uL Hgb 12.3 (12.0-16.0) g/dL Hct 35.1 L (37-47) % MCV 90.9 (80-100) fL MCH 31.9 (25-34) pg MCHC 35.0 (32-36) g/dL RDW Std Deviation 52.6 H (36.4-46.3) fL RDW Coeff of [place] 15.9 H (11.5-14.5) % Plt Count 239 (130-400) K/uL MPV 9.6 (7.4-10.4) fL Immature Gran % (Auto) 0.1 % Neut % (Auto) 73.8 % Lymph % (Auto) 17.3 % [place] % (Auto) 7.7 % Eos % (Auto) 0.9 % Baso % (Auto) 0.2 % Immature Gran # (Auto) 0.01 (0.00-0.02) K/uL Neut # (Auto) 6.03 (1.4-6.5) K/uL Lymph # (Auto) 1.41 (1.2-3.4) K/uL [place] # (Auto) 0.63 H (0.11-0.59) K/uL Eos # (Auto) 0.07 (0-0.5) K/uL Baso # (Auto) 0.02 (0-0.2) K/uL Sodium 135 L (136-145) mmol/L Potassium 3.9 (3.5-5.1) mmol/L Chloride 104 (98-107) mmol/L Carbon Dioxide 22 (21-32) mmol/L Anion Gap 9.0 (3-11) BUN 25 H (7-18) mg/dl Creatinine 0.97 (0.6-1.2) mg/dl Est Cr Clr Drug Dosing 30.8 ml/min Est GFR ( Amer) 61.3 Est GFR (Non-Af Amer) 52.9 BUN/Creatinine Ratio 26.0 H (10-20) Glucose 109 H (70-99) mg/dl Calcium 8.9 (8.5-10.1) mg/dl Magnesium 2.0 (1.8-2.4) mg/dl Total Bilirubin 0.3 (0.2-1) mg/dl AST 30 (15-37) U/L ALT 30 (12-78) U/L Alkaline Phosphatase 78 (45-117) U/L Troponin I < 0.015 (0-0.045) ng/ml Total Protein 6.6 (6.4-8.2) gm/dl Albumin 3.7 (3.4-5.0) gm/dl Globulin 2.9 (2.5-4.0) gm/dl Albumin/Globulin Ratio 1.3 (0.9-2) TSH 2.620 (0.300-4.500) uIu/ml ECG Data Attestation: I personally reviewed and interpreted this ECG as follows: Indication: syncope Rate (beats per minute): 54 Rhythm: sinus bradycardia Findings: + nonspecific-ST abn Comparison ECG Date: from (01/16/2017) Change: no significant change Blood Pressure Blood Pressure Findings: Elevated blood pressure Blood Pressure Disposition: Referred to patients primary care provider MDM Narrative This patient comes in as described above. She was placed in room B12. She is here for treatment and evaluation of a syncopal episode. She was in faith and started feeling woozy and felt like her vision was off she apparently was sweaty and passed out briefly there was no injury. She looks great at present is asymptomatic. there is no chest pain or palpitation. she has no neurologic deficits with exception of a pre-existing weakness of her right leg secondary to childhood polio. EKG was obtained as well as chest x-ray multiple blood testing she was hydrated with a IV normal saline bolus. She was reassessed frequently. No acute electrolyte or metabolic abnormalities. EKG does not suggest acute coronary syndrome or arrhythmia. Troponin was negative. Chest x- ray does not show any congestive heart failure pneumothorax. I do think she needs to be admitted/observe given her age and the fact that she has history of coronary artery disease. I am concerned she could have had an arrhythmic episode. I did consult the [facility] hospitalist to see in the ER for these measures. Impression & Plan Syncope Discharge Plan Visit Data Chief Complaint: Syncope ED Provider: Avery Ramirez Discharge Problem: Syncope Patient Disposition: Being Evaluated by Hospitalist Forms Stand Alone Forms: My [facility] Prescriptions Prescriptions: No Action atorvastatin [Lipitor] 40 mg tablet 40 mg PO QAM RF: 0 Azopt 1 % drops,suspension 1 drp OPB BID RF: 0 clopidogrel [Plavix] 75 mg tablet 75 mg PO QAM RF: 0 aspirin [Aspirin Low Dose] 81 mg Tablet,Delayed Release (Dr/Ec) 81 mg PO DAILY RF: 0 nitroglycerin [Nitrostat] 0.4 mg tablet, sublingual 0.4 mg sublingual UD PRN (Reason: Chest Pain) RF: 0 bumetanide 1 mg tablet 1 mg PO QAM RF: 0 lisinopril [Zestril] 40 mg tablet 20 mg PO BID RF: 0 Combigan 0.2-0.5 % drops 1 drp OPB BID RF: 0 isosorbide mononitrate 30 mg tablet extended release 24 hr 30 mg PO QAM RF: 0 carvedilol [Coreg] 3.125 mg tablet 3.125 mg PO BID RF: 0 Referrals Referrals: Roberta Garcia MD [Primary Care Provider] - Discharge Problem: Syncope Qualifiers: Syncope type: unspecified Qualified Code(s): R55 - Syncope and collapse The scribe's documentation has been prepared under my direction and personally reviewed by me in its entirety. I confirm that the note above accurately reflects all work, treatment, procedures, and medical decision making performed by me.
[2019-02-24 11:48] LABS: Basophils # (auto) 0.02 K/uL (0-0.2); Basophils % (auto) 0.2 %; Eosinophils # (auto) 0.07 K/uL (0-0.5); Eosinophils % (auto) 0.9 %; Hematocrit (blood only) 35.1 % (37-47); Hemoglobin 12.3 g/dL (12.0-16.0); Immature Granulocytes # (auto) 0.01 K/uL (0.00-0.02); Immature Granulocytes % (auto) 0.1 %; Lymphocytes # (auto) 1.41 K/uL (1.2-3.4); Lymphocytes % (auto) 17.3 %; Mean Corpuscular Volume 90.9 fL (80-100); Mean Platelet Volume 9.6 fL (7.4-10.4); Monocytes # (auto) 0.63 K/uL (0.11-0.59); Monocytes % (auto) 7.7 %; Neutrophils # (auto) 6.03 K/uL (1.4-6.5); Neutrophils % (auto) 73.8 %; Platelet Count 239 K/uL (130-400); RDW Coefficient of Variation 15.9 % (11.5-14.5); RDW Standard Deviation 52.6 fL (36.4-46.3); Red Blood Count 3.86 M/uL (4.2-5.4); White Blood Count 8.17 K/uL (4.8-10.8)
[2019-02-24 12:04] LABS: Alanine Aminotransferase 30 U/L (12-78); Albumin Level 3.7 gm/dl (3.4-5.0); Aspartate Aminotransferase 30 U/L (15-37); Blood Urea Nitrogen 25 mg/dl (7-18); Calcium 8.9 mg/dl (8.5-10.1); Carbon Dioxide 22 mmol/L (21-32); Chloride 104 mmol/L (98-107); Creatinine Clr Calc Pharmacy 30.8 ml/min; Est GFR (African American) 61.3; Est GFR (Non-African American) 52.9; Glucose 109 mg/dl (70-99); Potassium 3.9 mmol/L (3.5-5.1); Sodium 135 mmol/L (136-145)
[2019-02-24 12:15] LABS: Albumin Globulin Ratio 1.3 (0.9-2); Alkaline Phosphatase 78 U/L (45-117); Bilirubin,Total 0.3 mg/dl (0.2-1); Globulin 2.9 gm/dl (2.5-4.0); Total Protein 6.6 gm/dl (6.4-8.2); Troponin I < 0.015 ng/ml (0-0.045)
--- NOTE | 2019-02-24 13:21 | XRay Report ---
SINGLE VIEW CHEST CLINICAL HISTORY: Syncope. FINDINGS: An AP, portable, upright chest radiograph is compared to study dated 09/16/2017. The examin ation is degraded by portable technique and patient rotation. The heart is enlarged and there is ath erosclerotic calcification of the thoracic aorta. The pulmonary vasculature is noncongested. Chronic interstitial thickening and apical scarring are similar to previous. No airspace consolidation or lar ge pleural effusion is identified. No pneumothorax is seen. The skeletal structures are osteopenic. T he bony thorax is grossly intact. Degenerative change and scoliosis are seen in the thoracic spine. A rthritic change is present in the shoulders. IMPRESSION: Cardiomegaly with no acute cardiopulmonary abnormality. Electronically signed by: Scout Rivera M.D. 02/24/2019 1:19 PM
--- NOTE | 2019-02-24 14:06 | History & Physical Report ---
Date of Service February 24, 2019 Assessment & Plan (1) Syncope: Clinical picture seems most likely consistent with vasovagal syncope but need to rule out other cardiac or neurologic etiologies - Check orthostatic vital signs - Troponin x 3 (Q6 hrs), monitor on telemetry, EKG in AM - Check carotid dopplers (last done in 2018 and showed bilateral 50-69% stenosis of ICA) - CT head stat to r/o ischemic event (2) CAD in [place] artery: Initial troponin negative. Will check x 3 - Plan as above - Continue ASA/Plavix, coreg, lisinopril, imdur (3) Dyslipidemia: - Continue outpatient statin therapy (4) CKD (chronic kidney disease) stage 3, GFR 30-59 ml/min: - BUN/creatinine > 20:1 c/w mild dehydration - will give gentle IVF (NSS x 2 liters) and encourage oral intake - Repeat labs in AM (5) Carotid stenosis: - Check carotid dopplers as discussed - appears outpatient vascular had order to be done but pt did not yet have completed (6) Hypertension: - Resume home meds with holds Patient and family are also very concerned about pt's weight - has gradually lost weight from baseline of 115-120 lbs over the years. Current weight is ~103 lbs. Requests nutrition consult for supplement recommendations. Patient seen and evaluated with collaborating physician, Dr. Carlos. Plan of care discussed and as outlined above. Code status discussed with patient and her family - she requests no aggressive measures. All questions answered. Leander Gomes PA-C History of Present Illness Chief Complaint: Syncope Primary Care Provider: Roberta Garcia MD This is an 88 y/o female with a PMH with CAD s/p PCI with SAM to ostial portion of second diagonal branch, PAD, dyslipidemia, labile hypertension, CKD3, carotid stenosis, renal artery stenosis and remote hx of polio with residual gait difficulties who presented to the ED via EMS today after a syncopal episode at [facility]. Pt reports that she felt fine when she woke up this morning. 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 The next thing she remembers is being slumped over with multiple people asking if she was okay. She reportedly lost consciousness for 2-3 minutes although this is all secondhand information as patient was unaware that she passed out. She did not hit her head or any other specific body part with the LOC but simply slumped over. She reports a similar sensation last Monday in [facility] as well but did not lose consciousness at that time. She denies associated chest pain, palpitations, racing heart, shortness of breath, CELIS, vertigo. She was diaphoretic just prior to LOC. She reports feeling chilled prior to the event, not warm. She denies recent falls other than episode today. She is easily fatigued but this is unchanged from baseline. Currently she is feeling well but is willing to be admitted for additional cardiac work-up. Last ECHO appears to have been in August 2017 and showed mild concentric LVH with LV EF 55-60%, right atrium moderately dilated, mild aortic regurgitation, mild to moderate mitral regurgitation, moderate to severe tricuspid regurgitation, mild prolapse of anterior mitral valve leaflet and moderate prolapse of posterior mitral valve leaflet, no evidence of pulmonary hypertension. Pt is usually active but does require frequent rests. Her appetite is fair but she is concerned about her inability to gain weight. Her family reports she only eats small portions but does eat at least three times per day. She drinks an occasional Boost. Allergies Allergy/AdvReac Type Severity Reaction Status Date / Time hydrochlorothiazide Allergy Unknown . Verified 02/24/19 12:09 Home Medications Home Medications Medication Instructions Recorded Confirmed Type aspirin [Aspirin Low Dose] 81 mg PO DAILY 02/24/19 02/24/19 History atorvastatin [Lipitor] 40 mg PO QAM 02/24/19 02/24/19 History brimonidine-timolol [Combigan] 1 drp OPB BID 02/24/19 02/24/19 History brinzolamide [Azopt] 1 drp OPB BID 02/24/19 02/24/19 History bumetanide 1 mg PO QAM 02/24/19 02/24/19 History carvedilol [Coreg] 3.125 mg PO BID 02/24/19 02/24/19 History clopidogrel [Plavix] 75 mg PO QAM 02/24/19 02/24/19 History isosorbide mononitrate 30 mg PO QAM 02/24/19 02/24/19 History lisinopril [Zestril] 20 mg PO BID 02/24/19 02/24/19 History nitroglycerin [Nitrostat] 0.4 mg SUBLINGUAL UD PRN 02/24/19 02/24/19 History Past Med/Surg History Medical History CAD in [place] artery (Chronic) History of non-ST elevation myocardial infarction (NSTEMI) (Chronic) Dyslipidemia (Chronic) History of poliomyelitis (Chronic) CKD (chronic kidney disease) stage 3, GFR 30-59 ml/min (Chronic) Renal artery stenosis (Chronic) Carotid stenosis (Chronic) Open-angle glaucoma (Chronic) Hypertension (Chronic) Peripheral vascular disease (Chronic 09/28/12) Surgical History S/P coronary artery stent placement (Chronic) History of Family History Other Family history non-contributory Social History Preferred Language: Danish Communication Ability: Effective Meat 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: No Beliefs That Will Affect Care: Church Church Beliefs: Hoahaoism marital status: / Current Living Situation: Alone current occupational status: retired Other Information That Helps Us Care for You: No Feels Safe at Home: Yes Safety Concerns: Feels Safe At This Time Smoking Status: Never smoker Do You Dip or Chew Tobacco: No Hx Alcohol Use: No Hx Substance Use: No Review of Systems Review of Systems: All systems reviewed & are unremarkable except as noted in HPI & below Constitutional: + fatigue (unchanged from baseline) and + anorexia; no fever, no chills, no weight loss and no weight gain Eyes: as per Subjective / HPI; no diplopia, not seeing flashes and no spots in vision Ear, Nose, Mouth, Throat: no ear pain, no dizziness, no nasal congestion, no nasal discharge and no sore throat Respiratory: no cough, no chest congestion, no dyspnea, no hemoptysis and no wheezing Cardiovascular: + syncope; no chest pain, no orthopnea, no palpitations and no edema Gastrointestinal: no abdominal pain, no nausea, no vomiting, no change in stools, no diarrhea/loose stools and no melena Genitourinary: no dysuria, no urinary frequency, no urinary urgency, no decreased urination, no hematuria and no flank pain Musculoskeletal: no back pain, no neck pain, no joint pain and no myalgia Integumentary: no rash and no skin ulcer Neurologic: + gait abnormality (chronic due to history of polio); no tingling, no numbness, no tremor(s), no seizure-like activity, no headache(s) and no abnormal speech Psychiatric: no behavioral changes, no depression and no anxiety Endocrine: no polydipsia, no polyphagia and no polyuria Physical Exam Constitutional: + thin; no acute distress and no altered mental status Eyes: PERRL, conjunctivae normal, anicteric sclerae ENMT: external ear and nose normal, oropharynx normal Neck: trachea midline Respiratory: normal respiratory effort, lungs clear to auscultation Auscultation: no rales, no rhonchi and no wheezes Cardiovascular: Rate/Rhythm: regular rhythm and + bradycardic (55-60) Heart Sounds: + murmur (systolic); no gallop and no cardiac rub Vessels: + carotid bruit (bilateral) and posterior tibial pulses present (only on left); + dorsalis pedis pulses abnormal Extremities: no calf tenderness and no pedal edema Right foot cool to touch Gastrointestinal (Abdomen): Inspection/Auscultation: normal bowel sounds; abdomen not distended Percussion/Palpation: abdomen soft; abdomen nontender and no guarding Musculoskeletal: Head/Neck/Chest: normocephalic and head atraumatic Extremities: no cyanosis and no clubbing Skin: no rashes, no ulcers and no jaundice Neurologic: moves all extremities Speech / Cognition: normal speech Motor/Sensory: no tremor Psychiatric: A+Ox3, euthymic affect Results & Data Vital Signs (Past 12 Hours) Vital Signs Temp Pulse Resp BP Pulse Ox 02/24/19 13:06 64 24 154/67 H 97 02/24/19 13:04 60 19 149/65 H 98 02/24/19 13:02 63 18 189/63 H 98 02/24/19 12:31 55 L 23 137/70 99 02/24/19 12:01 64 17 149/57 H 99 02/24/19 11:36 61 23 99 02/24/19 11:02 54 L 14 139/60 95 02/24/19 10:49 36.5 C 61 23 177/71 H 99 Laboratory Results Laboratory Results - last 24 hr 02/24/19 02/24/19 11:36 11:36 WBC 8.17 RBC 3.86 L Hgb 12.3 Hct 35.1 L MCV 90.9 MCH 31.9 MCHC 35.0 RDW Std Deviation 52.6 H RDW Coeff of [place] 15.9 H Plt Count 239 MPV 9.6 Immature Gran % (Auto) 0.1 Neut % (Auto) 73.8 Lymph % (Auto) 17.3 [place] % (Auto) 7.7 Eos % (Auto) 0.9 Baso % (Auto) 0.2 Immature Gran # (Auto) 0.01 Neut # (Auto) 6.03 Lymph # (Auto) 1.41 [place] # (Auto) 0.63 H Eos # (Auto) 0.07 Baso # (Auto) 0.02 Sodium 135 L Potassium 3.9 Chloride 104 Carbon Dioxide 22 Anion Gap 9.0 BUN 25 H Creatinine 0.97 Est Cr Clr Drug Dosing 30.8 Est GFR ( Amer) 61.3 Est GFR (Non-Af Amer) 52.9 BUN/Creatinine Ratio 26.0 H Glucose 109 H Calcium 8.9 Magnesium 2.0 Total Bilirubin 0.3 AST 30 ALT 30 Alkaline Phosphatase 78 Troponin I < 0.015 Total Protein 6.6 Albumin 3.7 Globulin 2.9 Albumin/Globulin Ratio 1.3 TSH 2.620 Diagnostic Findings Chest X-ray 02/24/19 - IMPRESSION: Cardiomegaly with no acute cardiopulmonary abnormality. Medications Administered Discontinued Medications Sodium Chloride (Nss) 500 mls @ 999 mls/hr IV .Q31M [facility] Stop: 02/24/19 11:30 Last Infusion: 02/24/19 12:10 Dose: 0 mls/hr Documented by: [id number] Admin: 02/24/19 11:36 Dose: 999 mls/hr Documented by: [id number] Supervising Physician Co-Signing Physician Notes Attending addendum The patient was seen and examined in the emergency room in presence of the family members on 02/24 She was admitted with syncope when her color was pale as noted by the people who were there Denies any symptoms during examination On examination No apparent distress at rest Hemodynamically stable Chest-clear to auscultate bilaterally Heart-S1-S2 no murmur, Abdomen-benign supervisor prepress-alert, awake and oriented x3. No focal sensory and motor deficit appreciated Admission labs and imaging studies reviewed Likely has vasovagal syncope Agree with assessment plan as outlined above by SHERRY Blum Dr (1) Carotid stenosis Laterality: bilateral Qualified Code(s): I65.23 - Occlusion and stenosis of bilateral carotid arteries (2) Syncope Syncope type: unspecified Qualified Code(s): R55 - Syncope and collapse (3) Hypertension Hypertension type: unspecified Qualified Code(s): I10 - Essential (primary) hypertension
--- NOTE | 2019-02-24 15:23 | CT Scan Report ---
CT SCAN OF THE BRAIN WITHOUT IV CONTRAST CLINICAL HISTORY: Syncope. COMPARISON STUDY: CT of the brain dated 06/23/2017. TECHNIQUE: Unenhanced axial CT scan of the brain is performed from the vertex to the skull base. A do se lowering technique was utilized adhering to the principles of ALARA. CT DOSE: 537.48 mGy.cm FINDINGS: Brain parenchyma: There are age-related involutional changes noting mild to moderate subcortical and periventricular microangiopathic change. There is no hemorrhage, mass effect, or evidence of acute t erritorial ischemia by CT criteria. [place]-white matter differentiation is preserved. No extra-axial fl uid collection is seen. Ventricles, sulci, cisterns: Prominent secondary to involutional change. Intracranial vasculature: There is atherosclerotic calcification of the cavernous carotid and vertebr al arteries. Calvarium: Unremarkable. Sinuses and mastoids: The visualized paranasal sinuses are clear. The mastoid air cells are well pneu matized. Orbits: The bony orbits are grossly intact. There are bilateral ocular lens implants. IMPRESSION: There is no hemorrhage, mass effect, or evidence of acute territorial ischemia by CT jonn johnson. Electronically signed by: Scout Rivera M.D. 02/24/2019 3:21 PM
[2019-02-24] MEDS ORDERED: ACETAMINOPHEN 325 MG TAB PO PRN (15:48)
[2019-02-24 16:41] LABS: Appearance Urine Clear (Clear); Bilirubin Urine Negative (Negative); Blood Urine Negative (Negative); Color Urine Yellow; Glucose Urine UA Negative (Negative); Ketones Urine Trace (Negative); Leukocyte Esterase Urine Negative (Negative); Nitrite Urine Negative (Negative); Protein Urine Negative (Negative); Specific Gravity Urine 1.014 (1.000-1.030); Urobilinogen Urine Negative (Negative)
[2019-02-24] MEDS: SODIUM CHLORIDE 0.9% 1000ML 1,000 ML IV SCH (17:20)
[2019-02-24 18:11] LABS: INR 1.1 (0.9-1.1); Prothrombin Time 11.3 Seconds (9.0-12.0)
[2019-02-24] MEDS ORDERED: ENOXAPARIN INJ 30 MG/0.3 ML SYR SQ SCH (19:00)
[2019-02-24] MEDS: BRINZOLAMIDE (AZOPT) OPS 10 ML BTL OPB SCH (20:52)
[2019-02-24] MEDS: CARVEDILOL 3.125 MG TAB PO SCH (20:53)
[2019-02-24] MEDS: LISINOPRIL 20 MG TAB PO SCH (20:53)
[2019-02-25] MEDS: SODIUM CHLORIDE 0.9% 1000ML 1,000 ML IV SCH (03:34)
[2019-02-25 06:58] LABS: Basophils # (auto) 0.01 K/uL (0-0.2); Basophils % (auto) 0.2 %; Eosinophils # (auto) 0.07 K/uL (0-0.5); Eosinophils % (auto) 1.2 %; Hematocrit (blood only) 34.3 % (37-47); Hemoglobin 11.9 g/dL (12.0-16.0); Immature Granulocytes # (auto) 0.01 K/uL (0.00-0.02); Immature Granulocytes % (auto) 0.2 %; Lymphocytes # (auto) 1.76 K/uL (1.2-3.4); Lymphocytes % (auto) 30.8 %; Mean Corpuscular Hgb Conc 34.7 g/dL (32-36); Mean Platelet Volume 9.6 fL (7.4-10.4); Monocytes # (auto) 0.63 K/uL (0.11-0.59); Neutrophils # (auto) 3.23 K/uL (1.4-6.5); Neutrophils % (auto) 56.6 %; Platelet Count 228 K/uL (130-400); RDW Coefficient of Variation 15.9 % (11.5-14.5); RDW Standard Deviation 53.5 fL (36.4-46.3); Red Blood Count 3.77 M/uL (4.2-5.4); White Blood Count 5.71 K/uL (4.8-10.8)
[2019-02-25 07:26] LABS: BUN Creatinine Ratio 25.2 (10-20); Calcium 8.6 mg/dl (8.5-10.1); Creatinine Clr Calc Pharmacy 39.6 ml/min; Est GFR (African American) 82.3; Potassium 3.6 mmol/L (3.5-5.1)
[2019-02-25] MEDS: LISINOPRIL 20 MG TAB PO SCH (08:00)
[2019-02-25] MEDS: CARVEDILOL 3.125 MG TAB PO SCH (08:00)
[2019-02-25] MEDS: BRINZOLAMIDE (AZOPT) OPS 10 ML BTL OPB SCH (08:01)
[2019-02-25] MEDS ORDERED: CLOPIDOGREL BISULFATE 75 MG TAB PO SCH (09:00)
[2019-02-25] MEDS ORDERED: ASPIRIN 81 MG ECTAB PO SCH (09:00)
[2019-02-25] MEDS ORDERED: ISOSORBIDE MONO EXTENDED REL 30 MG TABCR PO SCH (09:00)
[2019-02-25] MEDS ORDERED: ATORVASTATIN 40 MG TAB PO SCH (09:00)
--- NOTE | 2019-02-25 09:06 | Ultrasound Report ---
ULTRASOUND OF THE CAROTID ARTERIES CLINICAL HISTORY: syncope, hx carotid artery stenosis COMPARISON STUDY: July 2008 TECHNIQUE: Real-time, grayscale, and color Doppler sonography of the carotid arteries was performed. Imaging reviewed in the transverse and longitudinal planes. NASCET criteria was utilized for stenosis calcification. FINDINGS: There is moderate to extensive calcific atherosclerotic plaque present bilateral. The peak systolic velocity within the right internal carotid artery is 238 cm/sec. The systolic velocity ratio of right internal to common carotid artery is 2.4. The peak systolic velocity within the left internal carotid artery is 226 cm/sec. The systolic velocity ratio left internal to common carotid artery is 2.9. Antegrade flow is seen in the vertebral arteries. The external carotid arteries are patent. CT angiography could be obtained in follow-up for more accurate stenosis assessment as deemed clinica lly indicated. IMPRESSION: Bilateral internal carotid artery stenosis, estimated to be in the 60-80% range. Electronically signed by: Isaias Patel M.D. 02/25/2019 9:04 AM
--- NOTE | 2019-02-25 13:27 | Hospitalist Progress Note ---
Date of Service February 25, 2019 Assessment & Plan (1) Syncope: Clinical picture seems most likely consistent with vasovagal syncope but need to rule out other cardiac or neurologic etiologies - Check orthostatic vital signs - Troponin x 3 (Q6 hrs), monitor on telemetry, EKG in AM - Check carotid dopplers (last done in 2018 and showed bilateral 50-69% stenosis of ICA) - CT head stat to r/o ischemic event -Echo of the heart has been pending -Carotid Doppler showed 60 to 80% stenosis bilaterally -We will have an outpatient vascular surgery appointment sooner -No more episodes of syncope and no postural blood pressure 1 or pulse change -Will need outpatient Holter (2) CAD in [place] artery: Initial troponin negative. Will check x 3 - Plan as above - Continue ASA/Plavix, coreg, lisinopril, imdur -No acute symptoms (3) Dyslipidemia: - Continue outpatient statin therapy (4) CKD (chronic kidney disease) stage 3, GFR 30-59 ml/min: - BUN/creatinine > 20:1 c/w mild dehydration - will give gentle IVF (NSS x 2 liters) and encourage oral intake - Repeat labs in AM -Creatinine is normal (5) Carotid stenosis: - Check carotid dopplers as discussed - appears outpatient vascular had order to be done but pt did not yet have completed -Has bilateral carotid stenosis of 60 to 80% -Sees outpatient vascular surgery and will make an appointment sooner (6) Hypertension: - Resume home meds with holds -Blood pressure seems to be elevated -Will not increase Coreg but add amlodipine 2.5 mg daily -No postural hypotension Patient and family are also very concerned about pt's weight - has gradually lost weight from baseline of 115-120 lbs over the years. Current weight is ~103 lbs. Requests nutrition consult for supplement recommendations. Patient seen and evaluated with collaborating physician, Dr. Carlos. Plan of care discussed and as outlined above. Code status discussed with patient and her family - she requests no aggressive measures. All questions answered. RIAN Dior-Danielle Subjective 5/ The patient was seen and examined in telemetry unit She denies any symptoms and noted to have high blood pressure without any symptoms associated with it She does not have any postural hypotension No documentation of arrhythmias and a sinus pauses in monitor Review of Systems Constitutional: + fatigue (unchanged from baseline) and + anorexia; no fever, no chills, no weight loss and no weight gain Eyes: as per Subjective / HPI; no diplopia, not seeing flashes and no spots in vision Cardiovascular: + syncope; no chest pain, no orthopnea, no palpitations and no edema Neurologic: + gait abnormality (chronic due to history of polio); no tingling, no numbness, no tremor(s), no seizure-like activity, no headache(s) and no abnormal speech Physical Exam Physical Exam: No apparent distress at rest Constitutional: + thin; no acute distress Eyes: PERRL, conjunctivae normal, anicteric sclerae ENMT: external ear and nose normal, oropharynx normal Neck: trachea midline, no thyromegaly Respiratory: normal respiratory effort, lungs clear to auscultation Cardiovascular: RRR, no murmur, no edema Gastrointestinal (Abdomen): Inspection/Auscultation: abdomen normal to inspection Musculoskeletal: No acute arthritis in any joints Neurologic: Alert, awake and oriented x3. No focal sensory and motor deficit appreciated Results & Data Vital Signs (Past 12 Hours) Vital Signs Temp Pulse Pulse Resp BP Pulse Ox 02/25/19 11:22 36.4 C L 17 94 02/25/19 09:30 70 02/25/19 09:11 67 187/78 H 02/25/19 08:05 36.4 C L 73 18 209/81 H 98 02/25/19 03:41 36.5 C 63 166/71 H 97 Laboratory Results Short CBC 02/25/19 Range/Units 06:37 WBC 5.71 (4.8-10.8) K/uL Hgb 11.9 L (12.0-16.0) g/dL Hct 34.3 L (37-47) % Plt Count 228 (130-400) K/uL BMP 02/25/19 06:37 Sodium 139 Potassium 3.6 Chloride 110 H Carbon Dioxide 21 BUN 19 H Creatinine 0.76 Glucose 80 Calcium 8.6 Cardiac Enzymes 02/24/19 02/25/19 Range/Units 17:49 00:11 Troponin I < 0.015 < 0.015 (0-0.045) ng/ml Urine 02/24/19 Range/Units 16:30 Urine Color Yellow Urine Appearance Clear (Clear) Urine pH 5.0 (4.5-7.5) Ur Specific [place] 1.014 (1.000-1.030) Urine Protein Negative (Negative) Urine Glucose (UA) Negative (Negative) Medications Administered Current Inpatient Medications Acetaminophen (Tylenol) 650 mg PO Q4H PRN PRN Reason: Pain or Fever Stop: 03/26/19 15:47 Amlodipine Besylate (Norvasc) 2.5 mg PO [facility] Stop: 03/27/19 13:29 Aspirin (Ecotrin Ectab) 81 mg PO DAILY [facility] Stop: 03/27/19 08:59 Last Admin: 02/25/19 08:01 Dose: 81 mg Documented by: Atorvastatin Calcium ([facility]) [facility] [place]: 03/27/19 08:59 Last Admin: 02/25/19 08:01 Dose: 40 mg Documented by: Brinzolamide (Azopt) 1 drops OPB BID [facility] Stop: 03/26/19 20:59 Last Admin: 02/25/19 08:01 Dose: 1 drops Documented by: Carvedilol (Coreg) 3.125 mg PO BID [facility] Stop: 03/26/19 20:59 Last Admin: 02/25/19 08:00 Dose: 3.125 mg Documented by: Clopidogrel Bisulfate (Plavix) [facility] Stop: 03/27/19 08:59 Last Admin: 02/25/19 08:01 Dose: 75 mg Documented by: Enoxaparin Sodium (Lovenox) 30 mg SQ Q24H [facility] Stop: 03/26/19 18:59 Last Admin: 02/24/19 20:52 Dose: 30 mg Documented by: Sodium Chloride (Nss 1000ml) 1,000 mls @ 80 mls/hr IV .[id number] [facility] Stop: 02/25/19 16:47 Last Admin: 02/25/19 03:34 Dose: 80 mls/hr Documented by: Isosorbide Mononitrate (Imdur Extended Rel) 30 mg PO [facility] Stop: 03/27/19 08:59 Last Admin: 02/25/19 08:01 Dose: 30 mg Documented by: Lisinopril (Zestril) 20 mg PO BID [facility] Stop: 03/26/19 20:59 Last Admin: 02/25/19 08:00 Dose: 20 mg Documented by: Miscellaneous (Order Awaiting Action) 1 ea N/A QS JUAN JOSÉ Stop: 03/27/19 00:00 Last Admin: 02/25/19 08:13 Dose: Not Given Documented by: (1) Syncope Syncope type: unspecified Qualified Code(s): R55 - Syncope and collapse (2) Carotid stenosis Laterality: bilateral Qualified Code(s): I65.23 - Occlusion and stenosis of bilateral carotid arteries (3) Hypertension Hypertension type: unspecified Qualified Code(s): I10 - Essential (primary) hypertension
[2019-02-25] MEDS ORDERED: AMLODIPINE BESYLATE 5 MG TAB PO SCH (14:00)
--- NOTE | 2019-02-25 17:56 | Discharge Summary ---
Date of Service February 25, 2019 Admission HPI Per Admitting Provider This is an 88 y/o female with a PMH with CAD s/p PCI with SAM to ostial portion of second diagonal branch, PAD, dyslipidemia, labile hypertension, CKD3, carotid stenosis, renal artery stenosis and remote hx of polio with residual gait difficulties who presented to the ED via EMS today after a syncopal episode at [facility]. Pt reports that she felt fine when she woke up this morning. While sitting at [employer] participating in a study group, she started to "feel off" with "weird vision" although having trouble describing the specific visual changes. The next thing she remembers is being slumped over with multiple people asking if she was okay. She reportedly lost consciousness for 2-3 minutes although this is all secondhand information as patient was unaware that she passed out. She did not hit her head or any other specific body part with the LOC but simply slumped over. She reports a similar sensation last Monday in [facility] as well but did not lose consciousness at that time. She denies associated chest pain, palpitations, racing heart, shortness of breath, CELIS, vertigo. She was diaphoretic just prior to LOC. She reports feeling chilled prior to the event, not warm. She denies recent falls other than episode today. She is easily fatigued but this is unchanged from baseline. Currently she is feeling well but is willing to be admitted for additional cardiac work-up. Last ECHO appears to have been in August 2017 and showed mild concentric LVH with LV EF 55-60%, right atrium moderately dilated, mild aortic regurgitation, mild to moderate mitral regurgitation, moderate to severe tricuspid regurgitation, mild prolapse of anterior mitral valve leaflet and moderate prolapse of posterior mitral valve leaflet, no evidence of pulmonary hypertension. Pt is usually active but does require frequent rests. Her appetite is fair but she is concerned about her inability to gain weight. Her family reports she only eats small portions but does eat at least three times per day. She drinks an occasional Boost. Admission Exam Per Admitting Provider Constitutional: + thin; no acute distress and no altered mental status Eyes: PERRL, conjunctivae normal, anicteric sclerae ENMT: external ear and nose normal, oropharynx normal Neck: trachea midline Respiratory: normal respiratory effort, lungs clear to auscultation Auscultation: no rales, no rhonchi and no wheezes Cardiovascular: Rate/Rhythm: regular rhythm and + bradycardic (55-60) Heart Sounds: + murmur (systolic); no gallop and no cardiac rub Vessels: + carotid bruit (bilateral) and posterior tibial pulses present (only on left); + dorsalis pedis pulses abnormal Extremities: no calf tenderness and no pedal edema Right foot cool to touch Gastrointestinal (Abdomen): Inspection/Auscultation: normal bowel sounds; abdomen not distended Percussion/Palpation: abdomen soft; abdomen nontender and no guarding Musculoskeletal: Head/Neck/Chest: normocephalic and head atraumatic Extremities: no cyanosis and no clubbing Skin: no rashes, no ulcers and no jaundice Neurologic: moves all extremities Speech / Cognition: normal speech Motor/Sensory: no tremor Psychiatric: A+Ox3, euthymic affect Principal Diagnosis Syncope likely vasovagal, hypertension, bilateral carotid stenosis, will need outpatient Holter to rule out tachybradycardia syndrome Discharge Exam Constitutional + thin; no acute distress Eyes PERRL, conjunctivae normal, anicteric sclerae ENMT external ear and nose normal, oropharynx normal Neck trachea midline, no thyromegaly Respiratory normal respiratory effort, lungs clear to auscultation Cardiovascular RRR, no murmur, no edema Gastrointestinal (Abdomen) Inspection/Auscultation: abdomen normal to inspection Discharge Data Allergies Allergy/AdvReac Type Severity Reaction Status Date / Time hydrochlorothiazide Allergy Unknown . Verified 02/24/19 12:09 Ordered Studies 02/24/19 14:25 CT head/brain wo con Stat 02/25/19 12:00 US carotid doppler BI Routine Hospital Course (1) Syncope: Clinical picture seems most likely consistent with vasovagal syncope but need to rule out other cardiac or neurologic etiologies - Check orthostatic vital signs - Troponin x 3 (Q6 hrs), monitor on telemetry, EKG in AM - Check carotid dopplers (last done in 2018 and showed bilateral 50-69% stenosis of ICA) - CT head stat to r/o ischemic event -Echo of the heart has been pending -Carotid Doppler showed 60 to 80% stenosis bilaterally -We will have an outpatient vascular surgery appointment sooner -No more episodes of syncope and no postural blood pressure 1 or pulse change -Will need outpatient Holter (2) CAD in [place] artery: Initial troponin negative. Will check x 3 - Plan as above - Continue ASA/Plavix, coreg, lisinopril, imdur -No acute symptoms (3) Dyslipidemia: - Continue outpatient statin therapy (4) CKD (chronic kidney disease) stage 3, GFR 30-59 ml/min: - BUN/creatinine > 20:1 c/w mild dehydration - will give gentle IVF (NSS x 2 liters) and encourage oral intake - Repeat labs in AM -Creatinine is normal (5) Carotid stenosis: - Check carotid dopplers as discussed - appears outpatient vascular had order to be done but pt did not yet have completed -Has bilateral carotid stenosis of 60 to 80% -Sees outpatient vascular surgery and will make an appointment sooner (6) Hypertension: - Resume home meds with holds -Blood pressure seems to be elevated -Will not increase Coreg but add amlodipine 2.5 mg daily -No postural hypotension Patient and family are also very concerned about pt's weight - has gradually lost weight from baseline of 115-120 lbs over the years. Current weight is ~103 lbs. Requests nutrition consult for supplement recommendations. Patient seen and evaluated with collaborating physician, Dr. Carlos. Plan of care discussed and as outlined above. Code status discussed with patient and her family - she requests no aggressive measures. All questions answered. Leander Gomes PA-C Total Time Total Time Spent Total Time Spent (In Minutes): 35 minutes Total Time Includes: Examination of the Patient, Discharge Planning, Medication Reconciliation and Communication With Other Providers Discharge Plan Discharge Items Patient Disposition: Home - Self-Care Reason For Visit: SYNCOPE Discharge Diagnosis: Syncope likely vasovagal, hypertension, bilateral carotid stenosis, will need outpatient Holter to rule out tachybradycardia syndrome Condition: Good Discharge Goals: Decrease discomfort, Improve function and Increase independence Activity: Resume your previous activity Non-emergency contact: Primary Care Provider Call non-emergency contact if: you have any medication questions and your symptoms worsen Follow-up/Referrals: Roberta Garcia MD [Primary Care Provider] - 03/01/19 1:00 pm (Unit to have an outpatient Holter to rule out tachybradycardia syndrome. Vascular surgeon in [place] has been notified .) Diet: Heart Healthy Addtl Provider Instructions: Please take precaution to avoid fall. Prescriptions: Continued atorvastatin [Lipitor] 40 mg tablet 40 mg PO QAM RF: 0 Azopt 1 % drops,suspension 1 drp OPB BID RF: 0 clopidogrel [Plavix] 75 mg tablet 75 mg PO QAM RF: 0 aspirin [Aspirin Low Dose] 81 mg Tablet,Delayed Release (Dr/Ec) 81 mg PO DAILY RF: 0 nitroglycerin [Nitrostat] 0.4 mg tablet, sublingual 0.4 mg sublingual UD PRN (Reason: Chest Pain) RF: 0 bumetanide 1 mg tablet 1 mg PO QAM RF: 0 lisinopril [Zestril] 40 mg tablet 20 mg PO BID RF: 0 Combigan 0.2-0.5 % drops 1 drp OPB BID RF: 0 isosorbide mononitrate 30 mg tablet extended release 24 hr 30 mg PO QAM RF: 0 carvedilol [Coreg] 3.125 mg tablet 3.125 mg PO BID RF: 0 Stand-Alone Forms: [facility] Discharge Orders: Discharge Order (Routine); Ordered 02/25/19 Ordered By: Kelly Carlos Admission Data Admit Date/Time: 02/24/19 13:55 Attending Provider: Kelly Carlos Admit Provider: Kelly Carlos Primary Care Provider: Roberta Garcia Service: Telemetry
== END 2019-02-25 18:46 | disposition home or self-care (01) ==
LOC: 2S 10:42 → ED 10:42 → 2S 14:49

== ENCOUNTER 2021-05-27 12:13 | Inpatient (IN) ==
[2021-05-27 14:14] LABS: Eosinophils # (auto) 0.02 K/uL (0-0.5); Eosinophils % (auto) 0.3 %; Hematocrit (blood only) 38.3 % (37-47); Hemoglobin 13.4 g/dL (12.0-16.0); Immature Granulocytes # (auto) 0.02 K/uL (0.00-0.02); Immature Granulocytes % (auto) 0.3 %; Lymphocytes # (auto) 1.25 K/uL (1.2-3.4); Lymphocytes % (auto) 19.4 %; Mean Corpuscular Hemoglobin 32.8 pg (25-34); Mean Corpuscular Volume 93.9 fL (80-100); Mean Platelet Volume 9.8 fL (7.4-10.4); Monocytes # (auto) 0.69 K/uL (0.11-0.59); Monocytes % (auto) 10.7 %; Neutrophils # (auto) 4.47 K/uL (1.4-6.5); Neutrophils % (auto) 69.3 %; Platelet Count 270 K/uL (130-400); RDW Coefficient of Variation 13.3 % (11.5-14.5); RDW Standard Deviation 46.1 fL (36.4-46.3); Red Blood Count 4.08 M/uL (4.2-5.4); White Blood Count 6.45 K/uL (4.8-10.8)
[2021-05-27 14:20] LABS: Appearance Urine Clear (Clear); Bilirubin Urine Negative (Negative); Blood Urine Negative (Negative); Color Urine Yellow; Glucose Urine UA Trace (Negative); Ketones Urine Negative (Negative); Leukocyte Esterase Urine Negative (Negative); Nitrite Urine Negative (Negative); Protein Urine Negative (Negative); Specific Gravity Urine 1.008 (1.000-1.030); Urobilinogen Urine Negative (Negative); pH Urine 6.5 (4.5-7.5)
--- NOTE | 2021-05-27 14:22 | Emergency Department Note ---
History of Present Illness General Chief complaint: Hypertension Stated complaint: HTN Time Seen by Provider: 05/27/21 13:00 History of Present Illness Provider complaint: Dizziness near syncope Onset (ago): day(s) 1 Associated symptoms: + weakness; no chest pain, no cough, no fever/chills, no headaches or no nausea/vomiting 89-year-old female presents emergency department with her daughter and granddaughter for dizziness and near syncope. Patient reports that earlier this morning she felt like she was dizzy and like she might pass out. She denies any vertigo symptoms. She denies any chest pain headache or difficulty breathing. The family reports that the patient's blood pressure is very high this morning with a systolic blood pressure greater than 200. This was prior to her taking her home blood pressure medications. The family is asking to meet with a social media senior associate as a state is becoming difficult to take care of the patient in the outpatient setting as she lives alone and there are not many people to help take care of her. Home Medications Medication Instructions Recorded Confirmed Type atorvastatin 40 mg tablet (Lipitor) 80 mg PO DAILY 02/24/19 05/27/21 History brimonidine 0.2 %-timolol 0.5 % 1 drp OPB BID 02/24/19 05/27/21 History eye drops (Combigan) brinzolamide 1 % eye 1 drp OPB BID 02/24/19 05/27/21 History drops,suspension (Azopt) bumetanide 1 mg tablet 0.5 mg PO Q OTHER DAY 02/24/19 05/27/21 History carvedilol 3.125 mg tablet (Coreg) 3.125 mg PO BID 02/24/19 05/27/21 History clopidogrel 75 mg tablet (Plavix) 75 mg PO QAM 02/24/19 05/27/21 History isosorbide mononitrate 30 mg 30 mg PO QAM 02/24/19 05/27/21 History tablet,extended release 24 hr nitroglycerin 0.4 mg sublingual 0.4 mg SUBLINGUAL UD PRN 02/24/19 05/27/21 History tablet (Nitrostat) iron,carbonyl 65 mg-vitamin C 125 1 tab PO QAM 01/16/20 05/27/21 History mg tablet,delayed release (Vitron-C) clonidine HCl 0.1 mg tablet 0.5 mg PO DIRECTED PRN 05/27/21 05/27/21 History hydrochlorothiazide 12.5 mg capsule 12.5 mg PO QAM 05/27/21 05/27/21 History lisinopril 20 mg tablet 20 mg PO BID 05/27/21 05/27/21 History multivitamin with minerals-folic 1 tab PO QAM 05/27/21 05/27/21 History acid 200 mcg chewable tablet (One-A-Day VitaCraves) psyllium husk 0.4 gram capsule 0.4 g PO QAM 05/27/21 05/27/21 History (Metamucil) Allergies Allergy/AdvReac Type Severity Reaction Status Date / Time hydrochlorothiazide Allergy Unknown . Verified 05/27/21 15:57 Past Med/Surg History Medical History (Updated 05/27/21 @ 16:27 by Jhoan Cruz) CAD in [place] artery Carotid stenosis CKD (chronic kidney disease) stage 3, GFR 30-59 ml/min Dyslipidemia History of non-ST elevation myocardial infarction (NSTEMI) History of poliomyelitis Hypertension Open-angle glaucoma Peripheral vascular disease (09/28/12) Renal artery stenosis Surgical History History of S/P coronary artery stent placement Family History Other Family history non-contributory Social History Smoking Status: Never smoker Hx Alcohol Use: No Hx Substance Use: No Preferred Language: Bermudian Communication Ability: Effective Track Watchman Required: No Beliefs That Will Affect Care: Amish Amish Beliefs: Lutheran marital status: / Current Living Situation: Alone current occupational status: retired Feels Safe at Home: Yes Assistive Devices: None Review of Systems A total of 10 systems reviewed and were otherwise negative Physical Exam Vital Signs Vital Signs - 24 hr 05/27/21 12:47 05/27/21 14:01 Temperature 36.6 C Temperature Source Oral Pulse Rate 60 56 L Pulse Rate [Apical] 56 L Pulse Rhythm Regular Regular Pulse Rhythm [Apical] Regular Pulse Strength [Apical] Normal Respiratory Rate 16 15 Respiratory Effort / Characteristics Non-Labored Respiratory Depth Normal Respiratory Pattern Regular Blood Pressure 158/74 H Blood Pressure [Right Arm] 155/70 H Blood Pressure Mean 102 Blood Pressure Mean [Right Arm] 98 Blood Pressure Position Sitting Pulse Oximetry 99 99 Oxygen Delivery Method Room Air Room Air Sepsis Recent Fever Within 48 Hours No Sepsis New/Unexplained Change in Mental Status No Sepsis Action Taken by Nursing No Action Required Physical Exam GENERAL: Thin and frail appearing. HENT: Exam performed. -Head: Normocephalic and atraumatic. -Right Ear: External ear normal. No mastoid tenderness. -Left Ear: External ear normal. No mastoid tenderness. -Mouth/Throat: The oropharynx is clear and moist. No trismus in the jaw. No dental abscesses or uvula swelling. No oropharyngeal exudate or tonsillar abscesses. EYES: Conjunctivae and EOM are normal. Pupils are equal, round, and reactive to light. Right eye exhibits no discharge. Left eye exhibits no discharge. No scleral icterus. NECK: Normal range of motion. Neck supple. No JVD present. No spinous process tenderness present. No carotid bruit present. No rigidity. No tracheal deviation and normal range of motion present. No Brudzinski's sign and no Kernig's sign noted. CV: Normal rate, regular rhythm, normal heart sounds and intact distal pulses. There is no peripheral edema. Palpable radial pulses bue. PULM/CHEST: Effort normal and breath sounds normal. No respiratory distress. No stridor. She has no wheezes. She has no rales. -Chest Wall: She exhibits no tenderness. ABD: The abdomen is soft. Bowel sounds are normal. She has no distension. No mass is present. There is no tenderness. There is no rebound, no guarding, no Jean Baptiste's sign and no tenderness at McBurney's point. Rovsig negative MUSC/SKEL: Normal range of motion. There is no peripheral edema, tenderness or deformity. LYMPH: No cervical adenopathy. NEURO: She is alert and oriented to person, place, and time. She has normal strength. No cranial nerve deficit or sensory deficit. Coordination and gait normal. GCS eye subscore is 4. GCS verbal subscore is 5. GCS motor subscore is 6. Cerebellar tests wnl. SKIN: Skin is warm and dry. She is not diaphoretic. PSYCH: She has a normal mood and affect. Behavior is normal. Judgment and thought content normal. Course Course 1300: The patient was evaluated in room B6. A complete history and physical exam was performed Cardiac monitoring: An order was placed for continuous cardiac monitoring. The monitor shows a rate of 60 with sinus rhythm 1455: Vital signs stable. Labs show a sodium of 126. [facility]. Patient does not have any seizures, no need for hypertonic saline at this point. Discussed the case with Joann who stated to admit to Dr. Ware Administered Medications Sodium Chloride (Nss) 500 mls @ 125 mls/hr IV .Q4H JUAN JOSÉ Stop: 06/26/21 13:44 Last Infusion: 05/27/21 15:08 Dose: 0 mls/hr Documented by: [id number] Admin: 05/27/21 15:07 Dose: 125 mls/hr Documented by: [id number] Medical Decision Making Laboratory Data Result diagrams: 05/27/21 14:00 05/27/21 14:00 Lab Results 05/27/21 05/27/21 05/27/21 Range/Units 14:00 14:00 14:00 WBC 6.45 (4.8-10.8) K/uL RBC 4.08 L (4.2-5.4) M/uL Hgb 13.4 (12.0-16.0) g/dL Hct 38.3 (37-47) % MCV 93.9 (80-100) fL MCH 32.8 (25-34) pg MCHC 35.0 (32-36) g/dL RDW Std Deviation 46.1 (36.4-46.3) fL RDW Coeff of [place] 13.3 (11.5-14.5) % Plt Count 270 (130-400) K/uL MPV 9.8 (7.4-10.4) fL Immature Gran % (Auto) 0.3 % Neut % (Auto) 69.3 % Lymph % (Auto) 19.4 % Coke % (Auto) 10.7 % Eos % (Auto) 0.3 % Baso % (Auto) 0.0 % Neut # (Auto) 4.47 (1.4-6.5) K/uL Lymph # (Auto) 1.25 (1.2-3.4) K/uL Coke # (Auto) 0.69 H (0.11-0.59) K/uL Eos # (Auto) 0.02 (0-0.5) K/uL Baso # (Auto) 0.00 (0-0.2) K/uL Immature Gran # (Auto) 0.02 (0.00-0.02) K/uL PT 10.3 (9.0-12.0) Seconds INR 1.0 (0.9-1.1) APTT 26.4 (21.0-31.0) Seconds PTT Ratio 1.0 Sodium 125 L (136-145) mmol/L Potassium 3.7 (3.5-5.1) mmol/L Chloride 89 L (98-107) mmol/L Carbon Dioxide 29 (21-32) mmol/L Anion Gap 7.0 (3-11) BUN 27 H (7-18) mg/dl Creatinine 0.87 (0.6-1.2) mg/dl Est Cr Clr Drug Dosing 31.8 ml/min Est GFR ( Amer) 68.5 ml/min Est GFR (Non-Af Amer) 59.1 ml/min BUN/Creatinine Ratio 31.6 H (10-20) Glucose 112 H (70-99) mg/dl Calcium 9.5 (8.5-10.1) mg/dl Magnesium 1.8 (1.8-2.4) mg/dl Total Bilirubin 0.5 (0.2-1) mg/dl Direct Bilirubin 0.2 (0-0.2) mg/dl AST 28 (15-37) U/L ALT 33 (12-78) U/L Alkaline Phosphatase 64 (45-117) U/L Troponin I < 0.015 (0-0.045) ng/ml Total Protein 7.6 (6.4-8.2) gm/dl Albumin 4.0 (3.4-5.0) gm/dl Lipase 314 (73-393) U/L Urine Color Urine Appearance (Clear) Urine pH (4.5-7.5) Ur Specific [place] (1.000-1.030) Urine Protein (Negative) Urine Glucose (UA) (Negative) Urine Ketones (Negative) Urine Blood (Negative) Urine Nitrite (Negative) Urine Bilirubin (Negative) Urine Urobilinogen (Negative) Ur Leukocyte Esterase (Negative) 05/27/21 Range/Units 14:00 WBC (4.8-10.8) K/uL RBC (4.2-5.4) M/uL Hgb (12.0-16.0) g/dL Hct (37-47) % MCV (80-100) fL MCH (25-34) pg MCHC (32-36) g/dL RDW Std Deviation (36.4-46.3) fL RDW Coeff of [place] (11.5-14.5) % Plt Count (130-400) K/uL MPV (7.4-10.4) fL Immature Gran % (Auto) % Neut % (Auto) % Lymph % (Auto) % Coke % (Auto) % Eos % (Auto) % Baso % (Auto) % Neut # (Auto) (1.4-6.5) K/uL Lymph # (Auto) (1.2-3.4) K/uL [place] # (Auto) (0.11-0.59) K/uL Eos # (Auto) (0-0.5) K/uL Baso # (Auto) (0-0.2) K/uL Immature Gran # (Auto) (0.00-0.02) K/uL PT (9.0-12.0) Seconds INR (0.9-1.1) APTT (21.0-31.0) Seconds PTT Ratio Sodium (136-145) mmol/L Potassium (3.5-5.1) mmol/L Chloride (98-107) mmol/L Carbon Dioxide (21-32) mmol/L Anion Gap (3-11) BUN (7-18) mg/dl Creatinine (0.6-1.2) mg/dl Est Cr Clr Drug Dosing ml/min Est GFR ( Amer) ml/min Est GFR (Non-Af Amer) ml/min BUN/Creatinine Ratio (10-20) Glucose (70-99) mg/dl Calcium (8.5-10.1) mg/dl Magnesium (1.8-2.4) mg/dl Total Bilirubin (0.2-1) mg/dl Direct Bilirubin (0-0.2) mg/dl AST (15-37) U/L ALT (12-78) U/L Alkaline Phosphatase (45-117) U/L Troponin I (0-0.045) ng/ml Total Protein (6.4-8.2) gm/dl Albumin (3.4-5.0) gm/dl Lipase (73-393) U/L Urine Color Yellow Urine Appearance Clear (Clear) Urine pH 6.5 (4.5-7.5) Ur Specific [place] 1.008 (1.000-1.030) Urine Protein Negative (Negative) Urine Glucose (UA) Trace H (Negative) Urine Ketones Negative (Negative) Urine Blood Negative (Negative) Urine Nitrite Negative (Negative) Urine Bilirubin Negative (Negative) Urine Urobilinogen Negative (Negative) Ur Leukocyte Esterase Negative (Negative) ECG Data Indication: + other (dizziness) Rate (beats per minute): 63 Rhythm: + normal sinus ECG Intervals/blocks: + Normal QRS, + Normal NH and + Normal QT-c ECG ST segments: + Normal ST segments MDM Narrative Vital signs stable. Labs show a sodium of 126. Patient will be admitted to the [facility] hospitalist team for hyponatremia. Patient does not have any seizures, no need for hypertonic saline at this point. Discussed the case with Joann who stated to admit to Dr. Ware Impression & Plan Acute hyponatremia Discharge Plan Visit Data Chief Complaint: Hypertension Stated Complaint: HTN ED Provider: Jhoan Cruz Discharge Problem: Acute hyponatremia Patient Disposition: Admitted As Inpatient Forms Stand Alone Forms: [facility] Prescriptions Prescriptions: No Action Vitron-C 65 mg iron- 125 mg Tablet,Delayed Release (Dr/Ec) 1 tab PO QAM RF: 0 atorvastatin [Lipitor] 40 mg tablet 80 mg PO DAILY RF: 0 brinzolamide [Azopt] 1 % drops,suspension 1 drp OPB BID RF: 0 clopidogrel [Plavix] 75 mg tablet 75 mg PO QAM RF: 0 nitroglycerin [Nitrostat] 0.4 mg tablet, sublingual 0.4 mg sublingual UD PRN (Reason: Chest Pain) RF: 0 bumetanide 1 mg tablet 0.5 mg PO Q OTHER DAY RF: 0 Combigan 0.2-0.5 % drops 1 drp OPB BID RF: 0 isosorbide mononitrate 30 mg tablet extended release 24 hr 30 mg PO QAM RF: 0 carvedilol [Coreg] 3.125 mg tablet 3.125 mg PO BID RF: 0 clonidine HCl 0.1 mg tablet 0.5 mg PO DIRECTED PRN (Reason: HTN) RF: 0 One-A-Day VitaCraves 200 mcg Tablet,Chewable 1 tab PO QAM RF: 0 psyllium husk [Metamucil] 0.4 gram Capsule 0.4 g PO QAM RF: 0 lisinopril 20 mg tablet 20 mg PO BID RF: 0 hydrochlorothiazide 12.5 mg capsule 12.5 mg PO QAM RF: 0 Referrals Referrals: Oneida Candelario MD [Primary Care Provider] -
[2021-05-27 14:23] LABS: Partial Thromboplastin Time 26.4 Seconds (21.0-31.0); Prothrombin Time 10.3 Seconds (9.0-12.0)
[2021-05-27 14:29] LABS: Alanine Aminotransferase 33 U/L (12-78); Aspartate Aminotransferase 28 U/L (15-37); BUN Creatinine Ratio 31.6 (10-20); Bilirubin Direct 0.2 mg/dl (0-0.2); Blood Urea Nitrogen 27 mg/dl (7-18); Calcium 9.5 mg/dl (8.5-10.1); Carbon Dioxide 29 mmol/L (21-32); Chloride 89 mmol/L (98-107); Creatinine Clr Calc Pharmacy 31.8 ml/min; Est GFR (African American) 68.5 ml/min; Est GFR (Non-African American) 59.1 ml/min; Glucose 112 mg/dl (70-99); Lipase 314 U/L (73-393); Magnesium 1.8 mg/dl (1.8-2.4); Potassium 3.7 mmol/L (3.5-5.1); Sodium 125 mmol/L (136-145)
[2021-05-27 14:35] LABS: Alkaline Phosphatase 64 U/L (45-117); Bilirubin,Total 0.5 mg/dl (0.2-1); Total Protein 7.6 gm/dl (6.4-8.2); Troponin I < 0.015 ng/ml (0-0.045)
[2021-05-27] MEDS ORDERED: SODIUM CHLORIDE 0.9% 1000ML 1,000 ML IV SCH ×2 (15:00→20:45)
[2021-05-27] MEDS: SODIUM CHLORIDE 0.9% 500 ML IV SCH ×2 (15:07→20:12)
--- NOTE | 2021-05-27 15:29 | History & Physical Report ---
Date of Service May 27, 2021 Assessment & Plan (1) Hyponatremia: Plan: - admit to med surg with tele -Initially presenting with dizziness and near syncopal episode likely to be due to dehydration, electrolyte abnormality. - Given NSS 500 mL in the ER, will continue with NSS x 500 mL, hold bumex and HCTZ, follow BMP q4H to ensure not overcorrecting, give additional NSS 500 ml. Adjust based off next sodium reading. -Likely secondary to recent initiation of HCTZ for blood pressure management as an outpatient so will hold this med and discontinue on discharge as she is already on Bumex every other day. (2) CAD in [place] artery: Plan: -History of NSTEMI , PCI with SAM to ostial portion of second diagonal branch - Cont plavix, statin, baby aspirin - follows with cardiology in [place] per daughter. (3) Dyslipidemia: Plan: - Cont statin 80 mg daily (4) Hypertension: Plan: - Taking lisinopril 20 mg BID at home, carvedilol 3.125 twice daily, Bumex 0.5 mg every other day (took today), Imdur 30 mg daily, also on clonidine 0.05 mg tablet as needed for hypertension - continue, holding HCTZ and Bumex - Pt HR in 50s - consider low dose beta blockade, consider cardiology consult - Renal ultrasound completed on 05/24/2021 showing right-sided possible high-grade greater than 60% stenosis of the renal artery, no stenosis on the left. (5) Peripheral vascular disease: Plan: - Hx of such (6) Carotid stenosis: Plan: -Patient had ultrasound completed 02/24/21: Right carotid artery duplex examination indicates evidence of 50-69% stenosis of the internal carotid artery. Left carotid artery duplex examination indicates evidence of 50-69% stenosis of the internal carotid artery. -Continue statin therapy as above (7) CKD (chronic kidney disease) stage 3, GFR 30-59 ml/min: Plan: - Monitor with am labs, Cr./BUN 0.87/27, allow lisinopril for now. Holding diuretics as above. DVT ppx: - aleksandr champion CODE: DNR/DNI Dispo: From home, likely to remain in the hospital x 1-2 days History of Present Illness Primary Care Provider: Oneida Candelario MD This is an 89 yo F with PMhx of CAD, NSTEMI s/p SAM to 2nd diagonal branch, HLD, HTN, carotid artery stenosis, CKD stage III, renal artery stenosis, glaucoma, PVD and hyponatremia. Pt presented tot he ER for weakness and near syncopal episode today. She was recently seen as a output by her PCP on 05/21/2021 and was started on HCTZ 12.5 mg daily due to hypertension with systolic blood pressure consistently in systolic 180s to 190s. She reports that her blood pressure has remained high si nce starting the HCTZ although she has gotten about 3 doses so far. Today she presented to the ER and was found to have hyponatremia with a sodium of 124. She had previously had a trial of HCTZ where it had caused her to become lightheaded/dizzy a little over 1 year ago. She denies any recent falls, ambulates with use of a walker for assistance at all times, and remains independent at home alone. She denies any chest pain, shortness of breath, heaviness, palpitations, flutter, headache, changes in vision, ATC. Daughter and granddaughter present at bedside and helps support the history. She reports that she took all of her morning medications today including Bumex, HCTZ, lisinopril, carvedilol, Imdur. She did not take clonidine. Allergies Allergy/AdvReac Type Severity Reaction Status Date / Time hydrochlorothiazide Allergy Unknown . Verified 05/27/21 15:57 Home Medications Medication Instructions Recorded Confirmed Type atorvastatin 40 mg tablet (Lipitor) 80 mg PO DAILY 02/24/19 05/27/21 History brimonidine 0.2 %-timolol 0.5 % 1 drp OPB BID 02/24/19 05/27/21 History eye drops (Combigan) brinzolamide 1 % eye 1 drp OPB BID 02/24/19 05/27/21 History drops,suspension (Azopt) bumetanide 1 mg tablet 0.5 mg PO Q OTHER DAY 02/24/19 05/27/21 History carvedilol 3.125 mg tablet (Coreg) 3.125 mg PO BID 02/24/19 05/27/21 History clopidogrel 75 mg tablet (Plavix) 75 mg PO QAM 02/24/19 05/27/21 History isosorbide mononitrate 30 mg 30 mg PO QAM 02/24/19 05/27/21 History tablet,extended release 24 hr nitroglycerin 0.4 mg sublingual 0.4 mg SUBLINGUAL UD PRN 02/24/19 05/27/21 History tablet (Nitrostat) iron,carbonyl 65 mg-vitamin C 125 1 tab PO QAM 01/16/20 05/27/21 History mg tablet,delayed release (Vitron-C) clonidine HCl 0.1 mg tablet 0.5 mg PO DIRECTED PRN 05/27/21 05/27/21 History hydrochlorothiazide 12.5 mg capsule 12.5 mg PO QAM 05/27/21 05/27/21 History lisinopril 20 mg tablet 20 mg PO BID 05/27/21 05/27/21 History multivitamin with minerals-folic 1 tab PO QAM 05/27/21 05/27/21 History acid 200 mcg chewable tablet (One-A-Day VitaCraves) psyllium husk 0.4 gram capsule 0.4 g PO QAM 05/27/21 05/27/21 History (Metamucil) Past Med/Surg History Medical History (Updated 05/27/21 @ 16:27 by Jhoan Cruz) CAD in [place] artery Carotid stenosis CKD (chronic kidney disease) stage 3, GFR 30-59 ml/min Dyslipidemia History of non-ST elevation myocardial infarction (NSTEMI) History of poliomyelitis Hypertension Open-angle glaucoma Peripheral vascular disease (09/28/12) Renal artery stenosis Surgical History History of S/P coronary artery stent placement Family History Other Family history non-contributory Social History Smoking Status: Never smoker Hx Alcohol Use: No Hx Substance Use: No Preferred Language: Chinese Communication Ability: Effective Product Manager Required: No Beliefs That Will Affect Care: Mormonism Mormonism Beliefs: Religion marital status: / Current Living Situation: Alone current occupational status: retired Feels Safe at Home: Yes Assistive Devices: None Review of Systems Review of Systems: Constitutional: No fever, sweats or chills, As per HPI with lightheadedness/dizziness Eyes: No diplopia, no worsening or blurred vision ENT: normal hearing, no trouble swallowing Respiratory: No cough, sputum, dyspnea at rest or on exertion Cardiovascular: No chest pain, tightness or palpitations Abdomen: No pain, nausea, vomiting, diarrhea or constipation Musculoskeletal: No joint pain, calf pain, swelling Neurologic: + generalized weakness, no numbness/tingling, or balance problems Psychiatric: No anxiety or depression Skin: No rash or itch Physical Exam Physical Exam: General: awake, alert, no apparent distress, + thin with BMI of 18.5 Head: Normocephalic, atraumatic ENT: PERRL, EOMI, no pharyngeal exudate, mucous membranes slightly dry Chest: Clear to auscultation, on room air, no adventitious breath sounds Cardiac: Regular rate and rhythm, + systolic murmur, no JVD, normal peripheral pulses, good capillary refill Abdominal: NABS x 4 quadrants, soft, nondistended, nontender to palpation, no rebound or guarding Extremities: Normal inspection, no peripheral edema or erythema, calfs nontender to palpation Psych: Normal mood and affect Neuro: AAO x 3, strength intact bilaterally and rated 5/5, no motor deficits, speech is clear, no peripheral sensory deficits Results & Data Results & Data ([facility]) Vital Signs (Past 12 Hours) Vital Signs Temp Pulse Pulse Resp BP BP Pulse Ox 05/27/21 14:01 56 L 15 99 05/27/21 12:47 36.6 C 60 56 L 16 158/74 H 155/70 H 99 Laboratory Results Short CBC 05/27/21 Range/Units 14:00 WBC 6.45 (4.8-10.8) K/uL Hgb 13.4 (12.0-16.0) g/dL Hct 38.3 (37-47) % Plt Count 270 (130-400) K/uL BMP 05/27/21 05/27/21 14:00 19:57 Sodium 125 L 126 L Potassium 3.7 3.3 L Chloride 89 L 93 L Carbon Dioxide 29 24 BUN 27 H 23 H Creatinine 0.87 0.70 Glucose 112 H 141 H Calcium 9.5 8.7 Cardiac Enzymes 05/27/21 Range/Units 14:00 Troponin I < 0.015 (0-0.045) ng/ml Liver Function 05/27/21 Range/Units 14:00 Total Bilirubin 0.5 (0.2-1) mg/dl Direct Bilirubin 0.2 (0-0.2) mg/dl AST 28 (15-37) U/L ALT 33 (12-78) U/L Alkaline Phosphatase 64 (45-117) U/L Albumin 4.0 (3.4-5.0) gm/dl Urine 05/27/21 Range/Units 14:00 Urine Color Yellow Urine Appearance Clear (Clear) Urine pH 6.5 (4.5-7.5) Ur Specific [place] 1.008 (1.000-1.030) Urine Protein Negative (Negative) Urine Glucose (UA) Trace H (Negative) ECG Additional Comments: 27-MAY-2021 14:46:00 [facility]-EDSTAT ROUTINE RETRIEVAL Normal sinus rhythm with sinus arrhythmia Left ventricular hypertrophy with repolarization abnormality Abnormal ECG When compared with ECG of 16-JAN-2020 18:43, No significant change was found 25mm/s 10mm/mV 150Hz 9.0.9 12SL 241 TG: 11 Referred by: REFERRED SELF Unconfirmed Vent. rate 63 BPM MN interval 192 ms QRS duration 102 ms QT/QTc 430/440 ms Supervising Physician Co-Signing Physician Notes I have seen and examined the patient and have discussed the case with the provider above. I agree with the assessment and plan as stated. 89 yo F presents with lightheadedness in setting of acute hyponatremia after starting HCTZ one week ago. She is also taking Bumex as stated above. Blood pressure responded well to hydralazine 10mg IV given in the ER. Given in response to call by ER nurse that blood pressure was 220 systolic. She appears comfortable but is reporting some anxiety. She also has to urinate. Physical exam as above-overall she appears euvolemic to hypovolemic. Repeat Na after 500-600 cc NSS was 126. Cont with IVF at 80cc/hr and trend Na overnight. Agree with holding diuretics. Urine studies as able. Has a h/o CAD but this appears stable and not the cause of symptoms. EKG reveals no ischemia and troponin is negative. No evidence of end-organ damage from blood pressure, however, this historically has been difficult to control and there is LVH present on EKG. No CXR performed, however, she has no difficulty breathing or other respiratory symtpoms. Lungs are clear ro auscultation. Cont plan as above with expected improvement in symptoms with rehydration and avoidance of HCTZ. DO Chaz (1) Carotid stenosis Laterality: bilateral Qualified Code(s): I65.23 - Occlusion and stenosis of bilateral carotid arteries (2) Hypertension Hypertension type: unspecified Qualified Code(s): I10 - Essential (primary) hypertension
[2021-05-27] MEDS ORDERED: hydrALAZINE HCL 20 MG/ML VIAL ONE (17:14)
[2021-05-27 20:37] LABS: Calcium 8.7 mg/dl (8.5-10.1); Creatinine Clr Calc Pharmacy 39.6 ml/min; Est GFR (Non-African American) 76.8 ml/min; Potassium 3.3 mmol/L (3.5-5.1)
[2021-05-27] MEDS ORDERED: ACETAMINOPHEN 325 MG TAB PO PRN (23:11)
[2021-05-27] MEDS ORDERED: ONDANSETRON INJ 2 MG/ML 2 ML VIAL IV PRN (23:11)
[2021-05-27] MEDS ORDERED: hydrALAZINE HCL 20 MG/ML VIAL IV ONE (23:37)
[2021-05-28] MEDS: carvediloL 3.125 MG TAB PO SCH ×3 (00:12→20:42)
[2021-05-28] MEDS: lisinopril 20 MG TAB PO SCH ×3 (00:12→20:42)
[2021-05-28] MEDS: AZOPT OP SCH ×3 (00:13→20:43)
[2021-05-28] MEDS: COMBIGAN OP SCH ×3 (00:13→20:43)
[2021-05-28 00:55] LABS: Creatinine Urine Random 18.7 mg/dl
[2021-05-28 01:03] LABS: BUN Creatinine Ratio 29.1 (10-20); Calcium 8.3 mg/dl (8.5-10.1); Creatinine Clr Calc Pharmacy 35.1 ml/min; Est GFR (African American) 84.6 ml/min; Potassium 3.4 mmol/L (3.5-5.1)
[2021-05-28] MEDS ORDERED: POTASSIUM CHLORIDE CRTAB 20 MEQ TABCR PO STA (03:37)
[2021-05-28 06:46] LABS: Hematocrit (blood only) 35.8 % (37-47); Hemoglobin 12.3 g/dL (12.0-16.0); Mean Corpuscular Hemoglobin 32.1 pg (25-34); Mean Corpuscular Hgb Conc 34.4 g/dL (32-36); Mean Corpuscular Volume 93.5 fL (80-100); Mean Platelet Volume 9.7 fL (7.4-10.4); Platelet Count 235 K/uL (130-400); RDW Coefficient of Variation 13.5 % (11.5-14.5); RDW Standard Deviation 46.2 fL (36.4-46.3); Red Blood Count 3.83 M/uL (4.2-5.4); White Blood Count 7.79 K/uL (4.8-10.8)
[2021-05-28 07:22] LABS: Albumin Level 3.3 gm/dl (3.4-5.0); BUN Creatinine Ratio 26.5 (10-20); Creatinine Clr Calc Pharmacy 29.8 ml/min; Est GFR (African American) 69.4 ml/min; Est GFR (Non-African American) 59.9 ml/min; Magnesium 1.7 mg/dl (1.8-2.4); Potassium 3.8 mmol/L (3.5-5.1)
[2021-05-28 07:26] LABS: Albumin Globulin Ratio 1.2 (0.9-2); Bilirubin,Total 0.5 mg/dl (0.2-1); Globulin 2.9 gm/dl (2.5-4.0); Phosphorus 2.7 mg/dl (2.5-4.9); Total Protein 6.2 gm/dl (6.4-8.2)
[2021-05-28] MEDS: MAGNESIUM SULFATE / D5W 1 GM/100 ML BAG IV SCH ×2 (08:41→10:57)
[2021-05-28] MEDS: ASCORBIC ACID 500 MG TAB PO SCH (08:45)
[2021-05-28] MEDS: PSYLLIUM 58.6% POWDER PACKET PO SCH (08:48)
[2021-05-28] MEDS: ATORVASTATIN 40 MG TAB PO SCH (08:48)
[2021-05-28] MEDS: CEROVITE ADV FORMULA TAB PO SCH (08:48)
[2021-05-28] MEDS: FERROUS SULFATE 325 MG TAB PO SCH (08:49)
[2021-05-28] MEDS: ISOSORBIDE MONO EXTENDED REL 30 MG TABCR PO SCH (08:49)
[2021-05-28] MEDS: CLOPIDOGREL BISULFATE 75 MG TAB PO SCH (08:49)
--- NOTE | 2021-05-28 20:50 | Hospitalist Progress Note ---
Date of Service May 28, 2021 Assessment & Plan (1) Hyponatremia: Plan: Presyncope likely related to dehydration from additional diuretic added. Hold bothe Bumex and HCTZ at this time. Rehydrated overnight with slow rise in Na. Patient is clinically improved. Cont to orally rehydrate and eat as needed. No further IVF at this point. Trend sodium in am. (2) Hypertension: Plan: cont current medical therapy, hold HCTZ and bumex. - Renal ultrasound completed on 05/24/2021 showing right-sided possible high-grade greater than 60% stenosis of the renal artery, no stenosis on the left. (3) CAD in [place] artery: Plan: chronic, stable-History of NSTEMI , PCI with SAM to ostial portion of second diagonal branch - Cont plavix, statin, baby aspirin - follows with cardiology in [place] per daughter. (4) Peripheral vascular disease: Plan: chronic, stable, asymptomatic. medical management as above. (5) Anxiety: Plan: Patient and daughter reported this today. Discussed medical options with them, preferring SSRI such as low dose Zoloft to start if considering medical therapy. Strongly advised talk therapy to get at the root of what is driving the anxiety, however. Would not start this in the hospital. Ideally would have PCP start this. (6) CKD (chronic kidney disease) stage 3, GFR 30-59 ml/min: Plan: chronic, at baseline. Cont to monitor (7) DVT prophylaxis: Plan: Heparin DNR Dispo-possibly to rehab, pending PT/OT recs. Emeli Ware [facility] and Anticipated Discharge Date Admission Date: May 27, 2021 Subjective 89-year-old female presented with presyncope after starting HCTZ Feels improved today, less weak, no lightheadedness with ambulation, worked with therapy today. Daughter at bedside, all questions answered Tolerating p.o., otherwise no symptoms reported. Review of Systems Review of Systems: All systems were reviewed and negative except as indicated in HPI above. Physical Exam Physical Exam: CONSTITUTIONAL: thin, elderly and frail, vitals as above, generally well-appearing EYES: normal conjunctivae, no scleral icterus ENT: external ear and nose normal, MMM RESPIRATORY: clear to auscultation bilaterally, no crackles, rales or wheezes, normal respiratory effort CARDIOVASCULAR: regular rate and rhythm, S1 and 2 heard without murmurs, gallops or rubs, no JVD, no peripheral edema GASTROINTESTINAL: soft, nontender, nondistended, no guarding. MUSCULOSKELETAL: strength 5/5 throughout, head is normocephalic and atraumatic, neck supple, normal palpation of chest wall without tenderness SKIN: warm and dry NEUROLOGIC: CN 2-12 grossly intact, no sensory deficit, normal cognition, normal speech, no tremor, no gross focal deficits. PSYCHIATRIC: alert cooperative and oriented to person, place and time. Euthymic mood, makes good eye contact, language grossly intact, recent and remote memory grossly intact. Results & Data Results & Data ([facility]) Vital Signs (Past 12 Hours) Vital Signs Temp Pulse Pulse Resp BP Pulse Ox 05/28/21 19:21 36.4 C L 65 20 161/67 H 98 05/28/21 15:00 60 05/28/21 14:54 36.4 C L 62 20 135/55 L 97 05/28/21 11:31 36.4 C L 62 18 100/57 L 97 Laboratory Results Short CBC 05/28/21 Range/Units 06:09 WBC 7.79 (4.8-10.8) K/uL Hgb 12.3 (12.0-16.0) g/dL Hct 35.8 L (37-47) % Plt Count 235 (130-400) K/uL BMP 05/28/21 05/28/21 00:33 06:09 Sodium 131 L 132 L Potassium 3.4 L 3.8 Chloride 99 101 Carbon Dioxide 26 26 BUN 21 H 23 H Creatinine 0.73 0.86 Glucose 125 H 97 Calcium 8.3 L 9.0 Liver Function 05/28/21 Range/Units 06:09 Total Bilirubin 0.5 (0.2-1) mg/dl AST 22 (15-37) U/L ALT 26 (12-78) U/L Alkaline Phosphatase 53 (45-117) U/L Albumin 3.3 L (3.4-5.0) gm/dl Medications Administered Current Inpatient Medications Acetaminophen (Acetaminophen 325 Mg Tab) 650 mg PO Q4H PRN PRN Reason: Moderate Pain Stop: 06/26/21 23:10 Ascorbic Acid (Ascorbic Acid 500 Mg Tab) 250 mg PO [facility]; Protocol Stop: 06/27/21 08:59 Last Admin: 08/06/21 08:45 Dose: 250 mg Documented by: Atorvastatin Calcium (Atorvastatin 40 Mg Tab) 80 mg PO DAILY [facility] Stop: 06/27/21 08:59 Last Admin: 05/28/21 08:48 Dose: 80 mg Documented by: Carvedilol (Carvedilol 3.125 Mg Tab) 3.125 mg PO BID [facility] Stop: 06/26/21 23:44 Last Admin: 05/28/21 20:42 Dose: 3.125 mg Documented by: Clopidogrel Bisulfate (Clopidogrel Bisulfate 75 Mg Tab) 75 mg PO QAM [facility] Stop: 06/27/21 08:59 Last Admin: 05/28/21 08:49 Dose: 75 mg Documented by: Ferrous Sulfate (Ferrous Sulfate 325 Mg Tab) [facility] [place] Stop: 06/27/21 08:59 Last Admin: 05/28/21 08:49 Dose: 325 mg Documented by: Isosorbide Mononitrate (Isosorbide [place] Extended Rel 30 Mg Tabcr) 30 mg PO [facility] Stop: 06/27/21 08:59 Last Admin: 05/28/21 08:49 Dose: 30 mg Documented by: Lisinopril (Lisinopril 20 Mg Tab) 20 mg PO BID [facility] Stop: 06/26/21 23:44 Last Admin: 05/28/21 20:42 Dose: 20 mg Documented by: Multivitamins/Minerals (Cerovite Adv Formula Tab) 1 [facility] [place] Stop: 06/27/21 08:59 Last Admin: 05/28/21 08:48 Dose: 1 tab Documented by: Combigan: Non- Formulary Patient's Own Med 1 ea OP BID [facility] Stop: 06/26/21 23:44 Last Admin: 05/28/21 20:43 Dose: 1 drops Documented by: Azopt: Non-Formulary (Patient's Own Med) 1 ea OP BID [facility] Stop: 06/26/21 23:44 Last Admin: 05/28/21 20:43 Dose: 1 drops Documented by: Ondansetron HCl (Ondansetron Inj 2 Mg/Ml 2 Ml Vial) 4 mg IV Q4H PRN PRN Reason: Nausea And Vomiting Stop: 06/26/21 23:10 Psyllium Hydrophilic Mucilloid (Psyllium 58.6% Powder Packet) 1 pkt [facility] [place]; Protocol Stop: 06/27/21 08:59 Last Admin: 05/28/21 08:48 Dose: 1 pkt Documented by: (1) Hypertension Hypertension type: unspecified Qualified Code(s): I10 - Essential (primary) hypertension
--- NOTE | 2021-05-29 06:14 | Electrocardiogram Report ---
Test Reason : Blood Pressure : / mmHG Vent. Rate : 063 BPM Atrial Rate : 063 BPM P-R Int : 192 ms QRS Dur : 102 ms QT Int : 430 ms P-R-T Axes : 082 042 037 degrees QTc Int : 440 ms Normal sinus rhythm with sinus arrhythmia Left ventricular hypertrophy with repolarization abnormality Abnormal ECG When compared with ECG of 16-JAN-2020 18:43, No significant change was found Confirmed by Jj Gentile ([id number]) on 05/29/2021 6:13:46 AM Referred By: REFERRED SELF Confirmed By:Jj Gentile
[2021-05-29 06:58] LABS: Hematocrit (blood only) 34.4 % (37-47); Hemoglobin 11.7 g/dL (12.0-16.0); Mean Corpuscular Hemoglobin 32.4 pg (25-34); Mean Corpuscular Volume 95.3 fL (80-100); Mean Platelet Volume 9.5 fL (7.4-10.4); Platelet Count 232 K/uL (130-400); RDW Coefficient of Variation 13.7 % (11.5-14.5); RDW Standard Deviation 47.7 fL (36.4-46.3); Red Blood Count 3.61 M/uL (4.2-5.4)
[2021-05-29 07:26] LABS: Albumin Level 3.3 gm/dl (3.4-5.0); BUN Creatinine Ratio 28.4 (10-20); Calcium 8.5 mg/dl (8.5-10.1); Creatinine Clr Calc Pharmacy 28.7 ml/min; Est GFR (African American) 66.6 ml/min; Est GFR (Non-African American) 57.5 ml/min; Potassium 4.2 mmol/L (3.5-5.1)
[2021-05-29 07:28] LABS: Albumin Globulin Ratio 1.3 (0.9-2); Bilirubin,Total 0.5 mg/dl (0.2-1); Globulin 2.6 gm/dl (2.5-4.0); Total Protein 5.9 gm/dl (6.4-8.2)
[2021-05-29] MEDS: ASCORBIC ACID 500 MG TAB PO SCH (08:47)
[2021-05-29] MEDS: carvediloL 3.125 MG TAB PO SCH ×2 (08:47→20:33)
[2021-05-29] MEDS: FERROUS SULFATE 325 MG TAB PO SCH (08:47)
[2021-05-29] MEDS: lisinopril 20 MG TAB PO SCH ×2 (08:47→20:33)
[2021-05-29] MEDS: CLOPIDOGREL BISULFATE 75 MG TAB PO SCH (08:47)
[2021-05-29] MEDS: ISOSORBIDE MONO EXTENDED REL 30 MG TABCR PO SCH (08:47)
[2021-05-29] MEDS: AZOPT OP SCH ×2 (08:48→20:32)
[2021-05-29] MEDS: PSYLLIUM 58.6% POWDER PACKET PO SCH (08:48)
[2021-05-29] MEDS: COMBIGAN OP SCH ×2 (08:48→20:33)
[2021-05-29] MEDS: CEROVITE ADV FORMULA TAB PO SCH (08:48)
[2021-05-29] MEDS: ATORVASTATIN 40 MG TAB PO SCH (08:48)
[2021-05-29] MEDS: HEPARIN SOD 5,000 UNIT/0.5 ML VIAL SQ SCH ×2 (08:54→20:33)
[2021-05-29] MEDS: amLODIPine BESYLATE 5 MG TAB PO SCH (11:35)
--- NOTE | 2021-05-29 15:42 | Hospitalist Progress Note ---
Date of Service May 29, 2021 Assessment & Plan (1) Hyponatremia: Plan: Likely secondary to loosening of tumor salt due to dual therapy with diuretics Diuretics are on hold Received intravenous fluid Sodium level has been improving and today it is 132 on 05/29/2021 We will monitor Presyncope prior to admission Presyncope likely related to dehydration from additional diuretic added. Hold bothe Bumex and HCTZ at this time. Rehydrated overnight with slow rise in Na. Cont to orally rehydrate and eat as needed. No further IVF at this point. Blood pressure is maintained now (2) Hypertension: Plan: cont current medical therapy, hold HCTZ and bumex. Renal ultrasound completed on 05/24/2021 showing right-sided possible high-grade greater than 60% stenosis of the renal artery, no stenosis on the left. Blood pressure noted to be very high Amlodipine 5 mg added (3) CAD in [place] artery: Plan: chronic, stable-History of NSTEMI , PCI with SAM to ostial portion of second diagonal branch - Cont plavix, statin, baby aspirin - follows with cardiology in [place] per daughter. -No acute cardiac symptoms (4) Peripheral vascular disease: Plan: chronic, stable, asymptomatic. medical management as above. (5) Anxiety: Plan: Patient and daughter reported this today. Discussed medical options with them, preferring SSRI such as low dose Zoloft to start if considering medical therapy. Strongly advised talk therapy to get at the root of what is driving the anxiety, however. Would not start this in the hospital. Ideally would have PCP start this. (6) CKD (chronic kidney disease) stage 3, GFR 30-59 ml/min: Plan: chronic, at baseline. Cont to monitor Creatinine remains stable at 0.89 (7) DVT prophylaxis: Plan: Heparin DNR Dispo-possibly to rehab, pending PT/OT recs. Admission and Anticipated Discharge Date Admission Date: May 27, 2021 Subjective 05/29/2021 The patient was seen and examined in medical telemetry unit She has been feeling much better and complained to have some dizziness with ambulation Her blood pressure has been running high without any chest pain and/or palpitation Denies any neurological symptoms Review of Systems Review of Systems: All systems reviewed and are unremarkable except as noted below Neurologic: Occasional dizziness with ambulation without any other neurological symptoms Physical Exam Physical Exam: Lying in bed comfortably Constitutional: average body habitus; not ill appearing Eyes: PERRL, conjunctivae normal, anicteric sclerae ENMT: external ear and nose normal, oropharynx normal Neck: trachea midline, no thyromegaly Respiratory: no respiratory distress and no cough Auscultation: lungs clear to auscultation bilaterally Cardiovascular: Rate/Rhythm: regular rate and regular rhythm; not tachycardic Heart Sounds: normal S1 and normal S2; no murmur Extremities: no edema Gastrointestinal (Abdomen): normal bowel sounds, soft, nontender, no hepatosplenomegaly Musculoskeletal: No acute arthritis in any joint Neurologic: Alert, awake and oriented x3. Generally weak but no focal sensory and motor deficit appreciated Lymphatic: no cervical or axillary lymphadenopathy Results & Data Results & Data ([facility]) Vital Signs (Past 12 Hours) Vital Signs Temp Pulse Pulse Resp BP Pulse Ox 05/29/21 15:00 62 05/29/21 13:21 36.5 C 54 L 16 149/55 H 96 05/29/21 07:52 36.8 C 61 16 192/73 H 97 05/29/21 07:18 61 Laboratory Results Short CBC 05/29/21 Range/Units 06:37 WBC 7.20 (4.8-10.8) K/uL Hgb 11.7 L (12.0-16.0) g/dL Hct 34.4 L (37-47) % Plt Count 232 (130-400) K/uL BMP 05/29/21 06:37 Sodium 132 L Potassium 4.2 Chloride 101 Carbon Dioxide 27 BUN 25 H Creatinine 0.89 Glucose 99 Calcium 8.5 Liver Function 05/29/21 Range/Units 06:37 Total Bilirubin 0.5 (0.2-1) mg/dl AST 22 (15-37) U/L ALT 24 (12-78) U/L Alkaline Phosphatase 50 (45-117) U/L Albumin 3.3 L (3.4-5.0) gm/dl Medications Administered Current Inpatient Medications Acetaminophen (Acetaminophen 325 Mg Tab) 650 mg PO Q4H PRN PRN Reason: Moderate Pain Stop: 06/26/21 23:10 Amlodipine Besylate (Amlodipine Besylate 5 Mg Tab) 5 mg PO QAM [facility] Stop: 06/28/21 10:59 Last Admin: 05/29/21 11:35 Dose: 5 mg Documented by: Ascorbic Acid (Ascorbic Acid 500 Mg Tab) 250 mg PO QAM [facility]; Protocol Stop: 06/27/21 08:59 Last Admin: 05/29/21 08:47 Dose: 250 mg Documented by: Atorvastatin Calcium (Atorvastatin 40 Mg Tab) 80 mg PO DAILY [facility] Stop: 06/27/21 08:59 Last Admin: 05/29/21 08:48 Dose: 80 mg Documented by: Carvedilol (Carvedilol 3.125 Mg Tab) 3.125 mg PO BID [facility] Stop: 06/26/21 23:44 Last Admin: 05/29/21 08:47 Dose: 3.125 mg Documented by: Clopidogrel Bisulfate (Clopidogrel Bisulfate 75 Mg Tab) [facility] Stop: 06/27/21 08:59 Last Admin: 05/29/21 08:47 Dose: 75 mg Documented by: Ferrous Sulfate (Ferrous Sulfate 325 Mg Tab) 325 mg [facility] Stop: 06/27/21 08:59 Last Admin: 05/29/21 08:47 Dose: 325 mg Documented by: Heparin Sodium (Porcine) (Heparin Sod 5,000 Unit/0.5 Ml Vial) 5,000 units SQ Q12 [facility] Stop: 06/28/21 08:59 Last Admin: 05/29/21 08:54 Dose: 5,000 units Documented by: Isosorbide Mononitrate (Isosorbide [place] Extended Rel 30 Mg Tabcr) 30 mg PO QAM [facility] Stop: 06/27/21 08:59 Last Admin: 05/29/21 08:47 Dose: 30 mg Documented by: Lisinopril (Lisinopril 20 Mg Tab) 20 mg PO BID [facility] Stop: 06/26/21 23:44 Last Admin: 05/29/21 08:47 Dose: 20 mg Documented by: Multivitamins/Minerals (Cerovite Adv Formula Tab) 1 tab [facility] Stop: 06/27/21 08:59 Last Admin: 05/29/21 08:48 Dose: 1 tab Documented by: Combigan: Non- Formulary Patient's Own Med 1 ea OP BID [facility] Stop: 06/26/21 23:44 Last Admin: 05/29/21 08:48 Dose: 1 drops Documented by: Azopt: Non-Formulary (Patient's Own Med) 1 ea OP BID [facility] Stop: 06/26/21 23:44 Last Admin: 05/29/21 08:48 Dose: 1 drops Documented by: Ondansetron HCl (Ondansetron Inj 2 Mg/Ml 2 Ml Vial) 4 mg IV Q4H PRN PRN Reason: Nausea And Vomiting Stop: 06/26/21 23:10 Psyllium Hydrophilic Mucilloid (Psyllium 58.6% Powder Packet) 1 pkt PO QAM [facility]; Protocol Stop: 06/27/21 08:59 Last Admin: 05/29/21 08:48 Dose: 1 pkt Documented by: (1) Hypertension Hypertension type: unspecified Qualified Code(s): I10 - Essential (primary) hypertension
[2021-05-29] MEDS ORDERED: LORazepam 0.5 MG TAB PO STA (21:06)
[2021-05-30 06:44] LABS: Hematocrit (blood only) 33.3 % (37-47); Hemoglobin 11.2 g/dL (12.0-16.0); Mean Corpuscular Hemoglobin 32.1 pg (25-34); Mean Corpuscular Hgb Conc 33.6 g/dL (32-36); Mean Corpuscular Volume 95.4 fL (80-100); Mean Platelet Volume 9.5 fL (7.4-10.4); Platelet Count 227 K/uL (130-400); RDW Coefficient of Variation 13.7 % (11.5-14.5); RDW Standard Deviation 47.6 fL (36.4-46.3); Red Blood Count 3.49 M/uL (4.2-5.4); White Blood Count 7.09 K/uL (4.8-10.8)
[2021-05-30 07:01] LABS: Albumin Level 3.3 gm/dl (3.4-5.0); BUN Creatinine Ratio 34.7 (10-20); Calcium 8.9 mg/dl (8.5-10.1); Est GFR (African American) 86.1 ml/min; Est GFR (Non-African American) 74.3 ml/min; Potassium 3.9 mmol/L (3.5-5.1)
[2021-05-30 07:04] LABS: Albumin Globulin Ratio 1.2 (0.9-2); Bilirubin,Total 0.6 mg/dl (0.2-1); Globulin 2.7 gm/dl (2.5-4.0)
[2021-05-30] MEDS: lisinopril 20 MG TAB PO SCH ×2 (08:22→20:30)
[2021-05-30] MEDS: CLOPIDOGREL BISULFATE 75 MG TAB PO SCH (08:22)
[2021-05-30] MEDS: PSYLLIUM 58.6% POWDER PACKET PO SCH (08:22)
[2021-05-30] MEDS: amLODIPine BESYLATE 5 MG TAB PO SCH (08:22)
[2021-05-30] MEDS: ISOSORBIDE MONO EXTENDED REL 30 MG TABCR PO SCH (08:22)
[2021-05-30] MEDS: ATORVASTATIN 40 MG TAB PO SCH (08:22)
[2021-05-30] MEDS: AZOPT OP SCH ×2 (08:23→20:32)
[2021-05-30] MEDS: COMBIGAN OP SCH ×2 (08:23→20:32)
[2021-05-30] MEDS: carvediloL 3.125 MG TAB PO SCH ×2 (08:23→20:31)
[2021-05-30] MEDS: ASCORBIC ACID 500 MG TAB PO SCH (08:23)
[2021-05-30] MEDS: FERROUS SULFATE 325 MG TAB PO SCH (08:23)
[2021-05-30] MEDS: CEROVITE ADV FORMULA TAB PO SCH (08:23)
[2021-05-30] MEDS: HEPARIN SOD 5,000 UNIT/0.5 ML VIAL SQ SCH ×2 (08:27→20:30)
[2021-05-30] MEDS: SODIUM CHLORIDE 1 GM TABLET PO SCH ×2 (10:07→20:30)
--- NOTE | 2021-05-30 14:13 | Hospitalist Progress Note ---
Date of Service May 30, 2021 Assessment & Plan (1) Hyponatremia: Plan: Likely secondary to loosening of tumor salt due to dual therapy with diuretics Diuretics are on hold Received intravenous fluid Sodium level has been improving and today it is 132 on 05/29/2021 Sodium level remains low at 131 on 05/30/2021 Has been started with sodium tablet 1 g twice daily We will repeat PRP in a.m. Presyncope prior to admission Presyncope likely related to dehydration from additional diuretic added. Hold bothe Bumex and HCTZ at this time. Rehydrated overnight with slow rise in Na. Cont to orally rehydrate and eat as needed. No further IVF at this point. Blood pressure is maintained now We will get orthostatic pulse and blood pressure measurement (2) Hypertension: Plan: cont current medical therapy, hold HCTZ and bumex. Renal ultrasound completed on 05/24/2021 showing right-sided possible high-grade greater than 60% stenosis of the renal artery, no stenosis on the left. 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 -No acute cardiac symptoms (4) Peripheral vascular disease: Plan: chronic, stable, asymptomatic. medical management as above. (5) Anxiety: Plan: Patient and daughter reported this today. Discussed medical options with them, preferring SSRI such as low dose Zoloft to start if considering medical therapy. Strongly advised talk therapy to get at the root of what is driving the anxiety, however. Would not start this in the hospital. Ideally would have PCP start this. (6) CKD (chronic kidney disease) stage 3, GFR 30-59 ml/min: Plan: chronic, at baseline. Cont to monitor Creatinine remains stable at 0.89 (7) DVT prophylaxis: Plan: Heparin DNR Dispo-possibly to rehab, pending PT/OT recs. Admission and Anticipated Discharge Date Admission Date: May 27, 2021 Subjective 05/29/2021 The patient was seen and examined in medical telemetry unit She has been feeling much better and complained to have some dizziness with ambulation Her blood pressure has been running high without any chest pain and/or palpitation Denies any neurological symptoms 05/30/2021 The patient was seen and examined in medical telemetry unit She denies any symptoms She will get PT and OT evaluation prior to discharge for recommendation and placement if needed Review of Systems Review of Systems: All systems reviewed and are unremarkable except as noted below Neurologic: Occasional dizziness with ambulation without any other neurological symptoms Physical Exam Physical Exam: Lying in bed comfortably Constitutional: average body habitus; not ill appearing Eyes: PERRL, conjunctivae normal, anicteric sclerae ENMT: external ear and nose normal, oropharynx normal Neck: trachea midline, no thyromegaly Respiratory: no respiratory distress and no cough Auscultation: lungs clear to auscultation bilaterally Cardiovascular: Rate/Rhythm: regular rate and regular rhythm; not tachycardic Heart Sounds: normal S1 and normal S2; no murmur Extremities: no edema Gastrointestinal (Abdomen): normal bowel sounds, soft, nontender, no hepatosplenomegaly Musculoskeletal: No acute arthritis in any joint Neurologic: Alert, awake and oriented x3. Generally weak and lethargic Lymphatic: no cervical or axillary lymphadenopathy Results & Data Results & Data ([facility]) Vital Signs (Past 12 Hours) Vital Signs Temp Pulse Pulse Resp BP BP Pulse Ox 05/30/21 11:39 36.3 C L 67 16 114/59 L 97 05/30/21 07:50 36.4 C L 67 16 194/76 H 98 05/30/21 07:00 64 05/30/21 02:57 36.7 C 62 14 144/70 H 98 Laboratory Results Short CBC 05/30/21 Range/Units 06:12 WBC 7.09 (4.8-10.8) K/uL Hgb 11.2 L (12.0-16.0) g/dL Hct 33.3 L (37-47) % Plt Count 227 (130-400) K/uL BMP 05/30/21 06:12 Sodium 131 L Potassium 3.9 Chloride 101 Carbon Dioxide 25 BUN 25 H Creatinine 0.72 Glucose 101 H Calcium 8.9 Liver Function 05/30/21 Range/Units 06:12 Total Bilirubin 0.6 (0.2-1) mg/dl AST 21 (15-37) U/L ALT 23 (12-78) U/L Alkaline Phosphatase 49 (45-117) U/L Albumin 3.3 L (3.4-5.0) gm/dl Medications Administered Current Inpatient Medications Acetaminophen (Acetaminophen 325 Mg Tab) 650 mg PO Q4H PRN PRN Reason: Moderate Pain Stop: 06/26/21 23:10 Amlodipine Besylate (Amlodipine Besylate 5 Mg Tab) 5 mg PO [facility] Stop: 06/28/21 10:59 Last Admin: 05/30/21 08:22 Dose: 5 mg Documented by: Ascorbic Acid (Ascorbic Acid 500 Mg Tab) 250 mg PO [facility]; Protocol Stop: 06/27/21 08:59 Last Admin: 05/30/21 08:23 Dose: 250 mg Documented by: Atorvastatin Calcium (Atorvastatin 40 Mg Tab) 80 mg PO DAILY [facility] Stop: 06/27/21 08:59 Last Admin: 05/30/21 08:22 Dose: 80 mg Documented by: Carvedilol (Carvedilol 3.125 Mg Tab) 3.125 mg PO BID [facility] Stop: 06/26/21 23:44 Last Admin: 05/30/21 08:23 Dose: 3.125 mg Documented by: Clopidogrel Bisulfate (Clopidogrel Bisulfate 75 Mg Tab) 75 mg PO [facility] Stop: 06/27/21 08:59 Last Admin: 05/30/21 08:22 Dose: 75 mg Documented by: Ferrous Sulfate (Ferrous Sulfate 325 Mg Tab) 325 mg PO [facility] Stop: 06/27/21 08:59 Last Admin: 05/30/21 08:23 Dose: 325 mg Documented by: Heparin Sodium (Porcine) (Heparin Sod 5,000 Unit/0.5 Ml Vial) 5,000 units SQ Q12 [facility] Stop: 06/28/21 08:59 Last Admin: 05/30/21 08:27 Dose: 5,000 units Documented by: Isosorbide Mononitrate (Isosorbide [place] Extended Rel 30 Mg Tabcr) 30 mg PO [facility] Stop: 06/27/21 08:59 Last Admin: 05/30/21 08:22 Dose: 30 mg Documented by: Lisinopril (Lisinopril 20 Mg Tab) 20 mg PO BID [facility] Stop: 06/26/21 23:44 Last Admin: 05/30/21 08:22 Dose: 20 mg Documented by: Multivitamins/Minerals (Cerovite Adv Formula Tab) 1 tab PO [facility] Stop: 06/27/21 08:59 Last Admin: 05/30/21 08:23 Dose: 1 tab Documented by: Combigan: Non- Formulary Patient's Own Med 1 ea OP BID [facility] Stop: 06/26/21 23:44 Last Admin: 05/30/21 08:23 Dose: 1 drops Documented by: Azopt: Non-Formulary (Patient's Own Med) 1 ea OP BID [facility] Stop: 06/26/21 23:44 Last Admin: 05/30/21 08:23 Dose: 1 drops Documented by: Ondansetron HCl (Ondansetron Inj 2 Mg/Ml 2 Ml Vial) 4 mg IV Q4H PRN PRN Reason: Nausea And Vomiting Stop: 06/26/21 23:10 Psyllium Hydrophilic Mucilloid (Psyllium 58.6% Powder Packet) 1 pkt PO [facility]; Protocol Stop: 06/27/21 08:59 Last Admin: 05/30/21 08:22 Dose: 1 pkt Documented by: Sodium Chloride (Sodium Chloride 1 Gm Tablet) 1 gm PO BID [facility] Stop: 06/29/21 09:14 Last Admin: 05/30/21 10:07 Dose: 1 gm Documented by: (1) Hypertension Hypertension type: unspecified Qualified Code(s): I10 - Essential (primary) hypertension
[2021-05-31] MEDS: ISOSORBIDE MONO EXTENDED REL 30 MG TABCR PO SCH (07:33)
[2021-05-31] MEDS: amLODIPine BESYLATE 5 MG TAB PO SCH (07:33)
[2021-05-31] MEDS: SODIUM CHLORIDE 1 GM TABLET PO SCH (07:33)
[2021-05-31] MEDS: lisinopril 20 MG TAB PO SCH (07:33)
[2021-05-31] MEDS: CLOPIDOGREL BISULFATE 75 MG TAB PO SCH (07:33)
[2021-05-31] MEDS: CEROVITE ADV FORMULA TAB PO SCH (07:33)
[2021-05-31] MEDS: ASCORBIC ACID 500 MG TAB PO SCH (07:33)
[2021-05-31] MEDS: FERROUS SULFATE 325 MG TAB PO SCH (07:33)
[2021-05-31] MEDS: AZOPT OP SCH (07:34)
[2021-05-31] MEDS: HEPARIN SOD 5,000 UNIT/0.5 ML VIAL SQ SCH (07:34)
[2021-05-31] MEDS: carvediloL 3.125 MG TAB PO SCH (07:34)
[2021-05-31] MEDS: COMBIGAN OP SCH (07:34)
[2021-05-31] MEDS: ATORVASTATIN 40 MG TAB PO SCH (07:34)
[2021-05-31] MEDS: PSYLLIUM 58.6% POWDER PACKET PO SCH (07:35)
[2021-05-31 07:42] LABS: Hematocrit (blood only) 33.5 % (37-47); Hemoglobin 11.4 g/dL (12.0-16.0); Mean Corpuscular Hemoglobin 32.6 pg (25-34); Mean Corpuscular Volume 95.7 fL (80-100); Mean Platelet Volume 9.7 fL (7.4-10.4); Platelet Count 233 K/uL (130-400); RDW Coefficient of Variation 13.6 % (11.5-14.5); RDW Standard Deviation 47.3 fL (36.4-46.3); White Blood Count 6.09 K/uL (4.8-10.8)
[2021-05-31 07:58] LABS: BUN Creatinine Ratio 28.8 (10-20); Calcium 9.1 mg/dl (8.5-10.1); Creatinine Clr Calc Pharmacy 36.4 ml/min; Est GFR (Non-African American) 76.8 ml/min
--- NOTE | 2021-05-31 12:51 | Hospitalist Progress Note ---
Date of Service May 31, 2021 Assessment & Plan (1) Hyponatremia: Plan: Likely secondary to loosening of tumor salt due to dual therapy with diuretics Diuretics are on hold Received intravenous fluid Sodium level has been improving and today it is 132 on 05/29/2021 Sodium level remains low at 131 on 05/30/2021 Has been started with sodium tablet 1 g twice daily Sodium level has come up to 134 She was advised to take a little extra table salt in diet Presyncope prior to admission Presyncope likely related to dehydration from additional diuretic added. Hold bothe Bumex and HCTZ at this time. Rehydrated overnight with slow rise in Na. Cont to orally rehydrate and eat as needed. No further IVF at this point. Her blood pressure is a stable with her current medications She has had physical therapy evaluation and recommended that she can go home (2) Hypertension: Plan: cont current medical therapy, hold HCTZ and bumex. Renal ultrasound completed on 05/24/2021 showing right-sided possible high-grade greater than 60% stenosis of the renal artery, no stenosis on the left. 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 -No acute cardiac symptoms (4) Peripheral vascular disease: Plan: chronic, stable, asymptomatic. medical management as above. (5) Anxiety: Plan: Patient and daughter reported this today. Discussed medical options with them, preferring SSRI such as low dose Zoloft to start if considering medical therapy. Strongly advised talk therapy to get at the root of what is driving the anxiety, however. Would not start this in the hospital. Ideally would have PCP start this. (6) CKD (chronic kidney disease) stage 3, GFR 30-59 ml/min: Plan: chronic, at baseline. Cont to monitor Creatinine remains stable at 0.89 (7) DVT prophylaxis: Plan: Heparin DNR Dispo-possibly to rehab, pending PT/OT recs. Admission and Anticipated Discharge Date Admission Date: May 27, 2021 Subjective 05/29/2021 The patient was seen and examined in medical telemetry unit She has been feeling much better and complained to have some dizziness with ambulation Her blood pressure has been running high without any chest pain and/or palpitation Denies any neurological symptoms 05/30/2021 The patient was seen and examined in medical telemetry unit She denies any symptoms She will get PT and OT evaluation prior to discharge for recommendation and placement if needed 07/01/2021 The patient was seen and examined in medical telemetry unit She does not have any symptoms and is stable in bed She was noted to have high blood pressure of systolic more than 200 without any symptoms But it has been running around 125 since after getting medications Denies any dizziness, palpitation, shortness of breath Review of Systems Review of Systems: All systems reviewed and are unremarkable except as noted below Neurologic: Occasional dizziness with ambulation without any other neurological symptoms Physical Exam Physical Exam: Lying in bed comfortably Constitutional: average body habitus; not ill appearing Eyes: PERRL, conjunctivae normal, anicteric sclerae ENMT: external ear and nose normal, oropharynx normal Neck: trachea midline, no thyromegaly Respiratory: no respiratory distress and no cough Auscultation: lungs clear to auscultation bilaterally Cardiovascular: Rate/Rhythm: regular rate and regular rhythm; not tachycardic Heart Sounds: normal S1 and normal S2; no murmur Extremities: no edema Gastrointestinal (Abdomen): normal bowel sounds, soft, nontender, no hepatosplenomegaly Musculoskeletal: No acute arthritis in any joint Neurologic: Alert, awake and oriented x3. Generally weak but no focal neuro deficit Lymphatic: no cervical or axillary lymphadenopathy Results & Data Results & Data ([facility]) Vital Signs (Past 12 Hours) Vital Signs Temp Pulse Pulse Resp BP BP Pulse Ox 05/31/21 11:13 36.5 C 63 18 125/48 L 98 05/31/21 10:18 61 110/52 L 05/31/21 07:32 36.7 C 78 18 203/75 H 99 05/31/21 07:00 68 05/31/21 03:15 60 05/31/21 02:53 36.5 C 90 16 115/64 95 Laboratory Results Short CBC 05/31/21 Range/Units 06:50 WBC 6.09 (4.8-10.8) K/uL Hgb 11.4 L (12.0-16.0) g/dL Hct 33.5 L (37-47) % Plt Count 233 (130-400) K/uL BMP 05/31/21 06:50 Sodium 134 L Potassium 4.0 Chloride 104 Carbon Dioxide 24 BUN 20 H Creatinine 0.70 Glucose 91 Calcium 9.1 Medications Administered Current Inpatient Medications Acetaminophen (Acetaminophen 325 Mg Tab) 650 mg PO Q4H PRN PRN Reason: Moderate Pain Stop: 06/26/21 23:10 Amlodipine Besylate (Amlodipine Besylate 5 Mg Tab) [facility] Stop: 06/28/21 10:59 Last Admin: 05/31/21 07:33 Dose: 5 mg Documented by: Ascorbic Acid (Ascorbic Acid 500 Mg Tab) 250 [facility]; Protocol Stop: 06/27/21 08:59 Last Admin: 05/31/21 07:33 Dose: 250 mg Documented by: Atorvastatin Calcium (Atorvastatin 40 Mg Tab) 80 mg PO DAILY [facility] Stop: 06/27/21 08:59 Last Admin: 05/31/21 07:34 Dose: 80 mg Documented by: Carvedilol (Carvedilol 3.125 Mg Tab) 3.125 mg PO BID [facility] Stop: 06/26/21 23:44 Last Admin: 05/31/21 07:34 Dose: 3.125 mg Documented by: Clopidogrel Bisulfate (Clopidogrel Bisulfate 75 Mg Tab) 75 [facility] Stop: 06/27/21 08:59 Last Admin: 05/31/21 07:33 Dose: 75 mg Documented by: Ferrous Sulfate (Ferrous Sulfate 325 Mg Tab) 325 mg [facility] Stop: 06/27/21 08:59 Last Admin: 05/31/21 07:33 Dose: 325 mg Documented by: Heparin Sodium (Porcine) (Heparin Sod 5,000 Unit/0.5 Ml Vial) 5,000 units SQ Q12 [facility] Stop: 06/28/21 08:59 Last Admin: 05/31/21 07:34 Dose: 5,000 units Documented by: Isosorbide Mononitrate (Isosorbide [place] Extended Rel 30 Mg Tabcr) 30 mg PO QAM [facility] Stop: 06/27/21 08:59 Last Admin: 05/31/21 07:33 Dose: 30 mg Documented by: Lisinopril (Lisinopril 20 Mg Tab) 20 mg PO BID [facility] Stop: 06/26/21 23:44 Last Admin: 05/31/21 07:33 Dose: 20 mg Documented by: Multivitamins/Minerals (Cerovite Adv Formula Tab) 1 tab PO QAM [facility] Stop: 06/27/21 08:59 Last Admin: 05/31/21 07:33 Dose: 1 tab Documented by: Combigan: Non- Formulary Patient's Own Med 1 ea OP BID [facility] Stop: 06/26/21 23:44 Last Admin: 05/31/21 07:34 Dose: 1 drops Documented by: Azopt: Non-Formulary (Patient's Own Med) 1 ea OP BID [facility] Stop: 06/26/21 23:44 Last Admin: 05/31/21 07:34 Dose: 1 drops Documented by: Ondansetron HCl (Ondansetron Inj 2 Mg/Ml 2 Ml Vial) 4 mg IV Q4H PRN PRN Reason: Nausea And Vomiting Stop: 06/26/21 23:10 Psyllium Hydrophilic Mucilloid (Psyllium 58.6% Powder Packet) 1 pkt [facility]; Protocol Stop: 06/27/21 08:59 Last Admin: 05/31/21 07:35 Dose: 1 pkt Documented by: Sodium Chloride (Sodium Chloride 1 Gm Tablet) 1 gm PO BID [facility] Stop: 06/29/21 09:14 Last Admin: 05/31/21 07:33 Dose: 1 gm Documented by: (1) Hypertension Hypertension type: unspecified Qualified Code(s): I10 - Essential (primary) hypertension
[2021-05-31 14:56] VITALS: BP 141/65; PULSE 63; TEMP 97.5; O2SAT 97
--- NOTE | 2021-06-01 08:38 | Discharge Summary ---
Date of Service June 01, 2021 Admission HPI Per Admitting Provider This is an 89 yo F with PMhx of CAD, NSTEMI s/p SAM to 2nd diagonal branch, HLD, HTN, carotid artery stenosis, CKD stage III, renal artery stenosis, glaucoma, PVD and hyponatremia. Pt presented tot he ER for weakness and near syncopal episode today. She was recently seen as a output by her PCP on 05/21/2021 and was started on HCTZ 12.5 mg daily due to hypertension with systolic blood pressure consistently in sys tolic 180s to 190s. She reports that her blood pressure has remained high since starting the HCTZ although she has gotten about 3 doses so far. Today she presented to the ER and was found to have hyponatremia with a sodium of 124. She had previously had a trial of HCTZ where it had caused her to become lightheaded/dizzy a little over 1 year ago. She denies any recent falls, ambulates with use of a walker for assistance at all times, and remains independent at home alone. She denies any chest pain, shortness of breath, heaviness, palpitations, flutter, headache, changes in vision, ATC. Daughter and granddaughter present at bedside and helps support the history. She reports that she took all of her morning medications today including Bumex, HCTZ, lisinopril, carvedilol, Imdur. She did not take clonidine. Admission Exam Per Admitting Provider Physical Exam: General: awake, alert, no apparent distress, + thin with BMI of 18.5 Head: Normocephalic, atraumatic ENT: PERRL, EOMI, no pharyngeal exudate, mucous membranes slightly dry Chest: Clear to auscultation, on room air, no adventitious breath sounds Cardiac: Regular rate and rhythm, + systolic murmur, no JVD, normal peripheral pulses, good capillary refill Abdominal: NABS x 4 quadrants, soft, nondistended, nontender to palpation, no rebound or guarding Extremities: Normal inspection, no peripheral edema or erythema, calfs nontender to palpation Psych: Normal mood and affect Neuro: AAO x 3, strength intact bilaterally and rated 5/5, no motor deficits, speech is clear, no peripheral sensory deficits Principal Diagnosis Hyponatremia, hypertensive urgency, stable CAD, anxiety/depression, PVD Discharge Exam Constitutional average body habitus; not ill appearing Eyes PERRL, conjunctivae normal, anicteric sclerae ENMT external ear and nose normal, oropharynx normal Neck trachea midline, no thyromegaly Respiratory no respiratory distress and no cough Auscultation: lungs clear to auscultation bilaterally Cardiovascular Rate/Rhythm: regular rate and regular rhythm; not tachycardic Heart Sounds: normal S1 and normal S2; no murmur Extremities: no edema Gastrointestinal (Abdomen) normal bowel sounds, soft, nontender, no hepatosplenomegaly Lymphatic no cervical or axillary lymphadenopathy Discharge Data Allergies Allergy/AdvReac Type Severity Reaction Status Date / Time hydrochlorothiazide Allergy Unknown . Verified 05/27/21 15:57 Consultations 05/27/21 14:53 ED Decision to Admit Stat Hospital Course (1) Hyponatremia: Likely secondary to loosening of tumor salt due to dual therapy with diuretics Diuretics are on hold Received intravenous fluid Sodium level has been improving and today it is 132 on 05/29/2021 Sodium level remains low at 131 on 05/30/2021 Has been started with sodium tablet 1 g twice daily Sodium level has come up to 134 She was advised to take a little extra table salt in diet Presyncope prior to admission Presyncope likely related to dehydration from additional diuretic added. Hold bothe Bumex and HCTZ at this time. Rehydrated overnight with slow rise in Na. Cont to orally rehydrate and eat as needed. No further IVF at this point. Her blood pressure is a stable with her current medications She has had physical therapy evaluation and recommended that she can go home (2) Hypertension: cont current medical therapy, hold HCTZ and bumex. Renal ultrasound completed on 05/24/2021 showing right-sided possible high-grade greater than 60% stenosis of the renal artery, no stenosis on the left. Blood pressure noted to be very high Amlodipine 5 mg added Her blood pressure is controlled now (3) CAD in [place] artery: chronic, stable-History of NSTEMI , PCI with SAM to ostial portion of second diagonal branch - Cont plavix, statin, baby aspirin - follows with cardiology in [place] per daughter. -No acute cardiac symptoms (4) Peripheral vascular disease: chronic, stable, asymptomatic. medical management as above. (5) Anxiety: Patient and daughter reported this today. Discussed medical options with them, preferring SSRI such as low dose Zoloft to start if considering medical therapy. Strongly advised talk therapy to get at the root of what is driving the anxiety, however. Would not start this in the hospital. Ideally would have PCP start this. (6) CKD (chronic kidney disease) stage 3, GFR 30-59 ml/min: chronic, at baseline. Cont to monitor Creatinine remains stable at 0.89 (7) DVT prophylaxis: Heparin DNR Dispo-possibly to rehab, pending PT/OT recs. Total Time Total Time Spent Total Time Spent (In Minutes): 35 minutes Discharge Plan Discharge Items Patient Disposition: Home - Home Health Services Reason For Visit: HYPONATREMIA, HYPERTENIVE URGENCY Discharge Diagnosis: Hyponatremia, hypertensive urgency, stable CAD, anxiety/depression, PVD Condition on Discharge: Fair Activity: Resume your previous activity Non-emergency contact: Primary Care Provider Call non-emergency contact if: you have any medication questions and your symptoms worsen Follow-up/Referrals: Oneida Candelario MD [Primary Care Provider] - (Your appointment is with Dr. Marie on of this month at [address] Candelario is not available) Diet: Heart Healthy Addtl Attending Provider Instructions: Please take precautions to avoid fall You can have little extra salt in your diet Take your medications as advised Clonidine has been discontinued to prevent fluctuation in blood pressure and Bumetanide has been discontinued to prevent further hyponatremia Pending Studies at Discharge: No Stand-Alone Forms: My [facility] [employer], Smoking Cessation Medications and DC Order Prescriptions: New amlodipine [Norvasc] 5 mg Tablet 5 mg PO QAM Qty: 30 RF: 0 Continued Vitron-C 65 mg iron- 125 mg Tablet,Delayed Release (Dr/Ec) 1 tab PO QAM RF: 0 atorvastatin [Lipitor] 40 mg tablet 80 mg PO DAILY RF: 0 brinzolamide [Azopt] 1 % drops,suspension 1 drp OPB BID RF: 0 clopidogrel [Plavix] 75 mg tablet 75 mg PO QAM RF: 0 nitroglycerin [Nitrostat] 0.4 mg tablet, sublingual 0.4 mg sublingual UD PRN (Reason: Chest Pain) RF: 0 Combigan 0.2-0.5 % drops 1 drp OPB BID RF: 0 isosorbide mononitrate 30 mg tablet extended release 24 hr 30 mg PO QAM RF: 0 carvedilol [Coreg] 3.125 mg tablet 3.125 mg PO BID RF: 0 One-A-Day VitaCraves 200 mcg Tablet,Chewable 1 tab PO QAM RF: 0 psyllium husk [Metamucil] 0.4 gram Capsule 0.4 g PO QAM RF: 0 lisinopril 20 mg tablet 20 mg PO BID RF: 0 hydrochlorothiazide 12.5 mg capsule 12.5 mg PO QAM RF: 0 Discontinued bumetanide 1 mg tablet 0.5 mg PO Q OTHER DAY RF: 0 clonidine HCl 0.1 mg tablet 0.5 mg PO DIRECTED PRN (Reason: HTN) RF: 0 Discharge Orders: Discharge Order (Routine); Ordered 05/31/21 Ordered By: Kelly Carlos Admission Data Admit Date/Time: 05/27/21 16:27 Attending Provider: Kelly Carlos Admit Provider: Bessie Bell Primary Care Provider: Oneida Candelario Other Providers: Emeli Ware ; [facility] ; [place],[facility] [place] ; [facility] ; [facility] Other Interventions: Discharge Summary Assessment (RN) Last Done: 05/31/21 13:03
== END 2021-05-31 15:32 | disposition home health service (06) | DRG 641 ==
LOC: ED 12:13 → 2N 16:27 → SUATTDRO 16:27 → 2N 22:24

== ENCOUNTER 2021-06-01 08:19 | Inpatient (IN) ==
[2021-06-01] MEDS ORDERED: SODIUM CHLORIDE 0.9% 500 ML IV ONE ×2 (08:53→12:46)
[2021-06-01 09:03] LABS: Basophils # (auto) 0.01 K/uL (0-0.2); Basophils % (auto) 0.2 %; Eosinophils # (auto) 0.03 K/uL (0-0.5); Eosinophils % (auto) 0.5 %; Hematocrit (blood only) 34.7 % (37-47); Hemoglobin 11.8 g/dL (12.0-16.0); Immature Granulocytes # (auto) 0.01 K/uL (0.00-0.02); Immature Granulocytes % (auto) 0.2 %; Lymphocytes # (auto) 1.55 K/uL (1.2-3.4); Lymphocytes % (auto) 23.6 %; Mean Corpuscular Hemoglobin 32.6 pg (25-34); Mean Corpuscular Volume 95.9 fL (80-100); Mean Platelet Volume 9.8 fL (7.4-10.4); Monocytes # (auto) 0.63 K/uL (0.11-0.59); Monocytes % (auto) 9.6 %; Neutrophils # (auto) 4.33 K/uL (1.4-6.5); Neutrophils % (auto) 65.9 %; Platelet Count 249 K/uL (130-400); RDW Coefficient of Variation 13.7 % (11.5-14.5); RDW Standard Deviation 48.3 fL (36.4-46.3); Red Blood Count 3.62 M/uL (4.2-5.4); White Blood Count 6.56 K/uL (4.8-10.8)
[2021-06-01 09:12] LABS: Partial Thromboplastin Ratio 0.9; Partial Thromboplastin Time 23.4 Seconds (21.0-31.0)
--- NOTE | 2021-06-01 09:17 | XRay Report ---
XR chest 1V portable HISTORY: Atypical Chest Pain COMPARISON: Chest 01/16/2020. FINDINGS: No pneumothorax. No pleural effusions. The lungs are hyperexpanded with apical predominant emphysematous changes. No new focal lung consolidations to suggest pneumonia. No evidence for pulmona ry edema. The heart remains normal in size. IMPRESSION: No significant change compared to the prior study. No acute process. ACT 112: Negative or not required by law. Electronically signed by: Kenton Lewis M.D. 06/01/2021 9:16 AM
[2021-06-01 09:26] LABS: Alanine Aminotransferase 28 U/L (12-78); Albumin Level 3.5 gm/dl (3.4-5.0); Aspartate Aminotransferase 26 U/L (15-37); BUN Creatinine Ratio 29.1 (10-20); Bilirubin Direct 0.1 mg/dl (0-0.2); Blood Urea Nitrogen 22 mg/dl (7-18); Calcium 9.1 mg/dl (8.5-10.1); Carbon Dioxide 22 mmol/L (21-32); Chloride 104 mmol/L (98-107); Creatinine Clr Calc Pharmacy 37.4 ml/min; Est GFR (African American) 80.6 ml/min; Est GFR (Non-African American) 69.5 ml/min; Glucose 120 mg/dl (70-99); Lipase 240 U/L (73-393); Magnesium 1.8 mg/dl (1.8-2.4); Potassium 4.2 mmol/L (3.5-5.1); Sodium 133 mmol/L (136-145)
[2021-06-01 09:29] LABS: Albumin Globulin Ratio 1.1 (0.9-2); Alkaline Phosphatase 53 U/L (45-117); Bilirubin,Total 0.5 mg/dl (0.2-1); Globulin 3.1 gm/dl (2.5-4.0); Phosphorus 2.4 mg/dl (2.5-4.9); Total Protein 6.6 gm/dl (6.4-8.2); Troponin I < 0.015 ng/ml (0-0.045)
[2021-06-01 10:40] LABS: Appearance Urine Clear (Clear); Bacteria Urine Automated Negative (Negative); Bilirubin Urine Negative (Negative); Blood Urine Negative (Negative); Color Urine Yellow; Glucose Urine UA Negative (Negative); Ketones Urine Negative (Negative); Leukocyte Esterase Urine 2+ (Negative); Nitrite Urine Negative (Negative); Protein Urine Negative (Negative); RBC Urine Automated 0-4 /hpf (0-4); Specific Gravity Urine 1.016 (1.000-1.030); Urobilinogen Urine Negative (Negative); pH Urine 5.5 (4.5-7.5)
[2021-06-01] MEDS ORDERED: cephALEXin 250 MG CAP PO ONE (11:13)
[2021-06-01] MEDS ORDERED: lisinopril 20 MG TAB PO STA (13:01)
[2021-06-01] MEDS ORDERED: CLOPIDOGREL BISULFATE 75 MG TAB PO ONE (13:03)
[2021-06-01] MEDS ORDERED: carvediloL 3.125 MG TAB PO ONE (14:08)
[2021-06-01] MEDS ORDERED: ISOSORBIDE MONO EXTENDED REL 30 MG TABCR PO ONE (14:46)
[2021-06-01] MEDS ORDERED: amLODIPine BESYLATE 5 MG TAB PO ONE (14:46)
--- NOTE | 2021-06-01 14:47 | History & Physical Report ---
Date of Service June 01, 2021 Assessment & Plan (1) Generalized weakness: Plan: This is an 89yo F with a PMH of CAD, NSTEMI s/p SAM to 2nd diagonal branch, HLD, HTN, carotid artery stenosis, CKD stage III, renal artery stenosis, glaucoma, PVD and hyponatremia who presents with continued lightheadedness and generalized weakness. Recently admitted to our service from 05/27-05/31 for hyponatremia and hypertensive urgency Hyponatremia improved from 125 to 132 with holding hctz, bumex Clonidine thought to be contributing to lightheadedness Bumex and clonidine discontinued at time of discharge on 05/31 Returns today with lightheadedness, weakness in setting of UTI, hypertensive urgency PT/OT evaluations, CM consult for rehab evaluation (2) Hypertensive urgency: Plan: BP 213/79 - did not take any antihypertensives with morning Renal ultrasound completed on 05/24/2021 showing right-sided possible high-grade greater than 60% stenosis of the renal artery, no stenosis on the left Likely contributing to symptoms of lightheadedness, weakness BP improved to 162/63 after being given missed doses of lisinopril, amlodipine, carvedilol and Imdur Continue home blood pressure medication regimen Add PRN if indicated (3) Acute UTI: Plan: UA with 2+ leuk esterase, patient with increased frequency and urgency Given dose of Keflex in ED. Will continue with Rocephin Follow urine culture (4) CKD (chronic kidney disease) stage 3, GFR 30-59 ml/min: Plan: Kidney function at baseline. Continue to monitor with daily BMP (5) CAD in [place] artery: Plan: Stable. Continue plavix, statin, baby aspirin Follows with cardiology in [place] (6) Carotid stenosis: Plan: H/o carotid ultrasound completed 02/24/21: * Right carotid artery duplex examination indicates evidence of 50-69% stenosis of the internal carotid artery * Left carotid artery duplex examination indicates evidence of 50-69% stenosis of the internal carotid artery Continue statin DVT Ppx: SQ heparin Code status: DNR PCP:[facility] Dispo: Observation med tele Patient seen in collaboration with Dr. Carlos. Please see addendum. History of Present Illness Chief Complaint: lightheadedness, near syncope Primary Care Provider: Oneida Candelario MD This is an 89yo F with a PMH of CAD, NSTEMI s/p SAM to 2nd diagonal branch, HLD, HTN, carotid artery stenosis, CKD stage III, renal artery stenosis, glaucoma, PVD and hyponatremia who presents with continued lightheadedness and near syncope. Was recently admitted to our service from 05/27-05/31 for hyponatremia and hypertensive urgency. Patient had recently been started on hydrochlorothiazide as an outpatient, which was thought to be contributing to hyponatremia and feelings of lightheadedness. Both hydrochlorothiazide and Bumex were held during admission with improved sodium to 132 at time of discharge. Bumex and clonidine were discontinued at this time. Patient felt okay initially upon discharge home but felt worse today with lightheadedness even in a seated position. Also endorses near syncope. Did not take any home medications this morning. Does not feel safe to be at home and is interested in rehab. Also endorsing increased urinary urgency since late last night. Denies any fever, chills, headache, dizziness, chest pain, shortness of breath, nausea, vomiting, abdominal pain, dysuria, hematuria, diarrhea or constipation. Allergies Allergy/AdvReac Type Severity Reaction Status Date / Time No Known Allergies Allergy Verified 06/01/21 17:16 Home Medications Medication Instructions Recorded Confirmed Type brimonidine 0.2 %-timolol 0.5 % 1 drp OPB BID 02/24/19 06/01/21 History eye drops (Combigan) brinzolamide 1 % eye 1 drp OPB BID 02/24/19 06/01/21 History drops,suspension (Azopt) carvedilol 3.125 mg tablet (Coreg) 3.125 mg PO BID 02/24/19 06/01/21 History clopidogrel 75 mg tablet (Plavix) 75 mg PO QAM 02/24/19 06/01/21 History isosorbide mononitrate 30 mg 30 mg PO QAM 02/24/19 06/01/21 History tablet,extended release 24 hr nitroglycerin 0.4 mg sublingual 0.4 mg SUBLINGUAL UD PRN 02/24/19 06/01/21 History tablet (Nitrostat) lisinopril 20 mg tablet 20 mg PO BID 05/27/21 06/01/21 History psyllium husk 0.4 gram capsule 0.4 g PO QAM 05/27/21 06/01/21 History (Metamucil) amlodipine 5 mg tablet (Norvasc) 5 mg PO QAM #30 tab 05/31/21 06/01/21 Rx Saccharomyces boulardii 250 mg 250 mg PO BID #20 cap 06/01/21 Rx capsule (Florastor) ascorbic acid (vitamin C) 250 mg 250 mg PO DAILY 06/01/21 06/01/21 History tablet atorvastatin 80 mg tablet 80 mg PO DAILY 06/01/21 06/01/21 History cephalexin 500 mg capsule 500 mg PO BID 7 Days #14 cap 06/01/21 Rx ferrous sulfate 325 mg (65 mg 325 mg PO DAILY 06/01/21 06/01/21 History iron) tablet hydrochlorothiazide 12.5 mg capsule 12.5 mg PO DAILY 06/01/21 06/01/21 History multivitamin with minerals 1 tab PO DAILY 06/01/21 06/01/21 History Past Med/Surg History Medical History CAD in [place] artery Carotid stenosis CKD (chronic kidney disease) stage 3, GFR 30-59 ml/min Dyslipidemia History of non-ST elevation myocardial infarction (NSTEMI) History of poliomyelitis Hypertension Hyponatremia Open-angle glaucoma Peripheral vascular disease (09/28/12) Renal artery stenosis Surgical History History of S/P coronary artery stent placement Family History Other Diabetes Stroke Social History Smoking Status: Former smoker Second Hand Exposure: No; Hx Alcohol Use: No Hx Substance Use: No Preferred Language: Venezuelan Communication Ability: Effective Dsp Engineer Required: No Beliefs That Will Affect Care: None marital status: / Current Living Situation: Alone current occupational status: retired Feels Safe at Home: Yes Assistive Devices: Walker Review of Systems Review of Systems: At least ten systems reviewed and negative except as noted in the HPI. Physical Exam Physical Exam: General Appearance: WD/WN, vitals as above, NAD, sitting up in bed, pleasant, conversing easily Head: normocephalic, atraumatic Eyes: normal inspection, PERRL, conjunctivae normal, anicteric sclerae ENT: external ear and nose normal, oropharynx normal Neck: normal visual inspection, trachea midline, no thyromegaly Respiratory: normal respiratory effort, lungs clear to auscultation, no wheeze, rales, rhonchi. No accessory muscle use Cardiovascular: regular rate, rhythm, no murmur, normal peripheral pulses, no BLE edema. Vessels: no JVD Chest: normal inspection of chest Abdomen/GI: normal bowel sounds, soft, nontender, no hepatosplenomegaly Extremities/Musculoskeletal: no cyanosis or clubbing, extremities motor strength 5/5 Neurologic: PERRL, EOMI, accommodation nl, no face palsy, no dysarthria, CN's II-XI intact bilaterally and moves all extremities Psychiatric: A+Ox3, euthymic affect Skin: no rashes, normal color, warm/dry Results & Data Results & Data ([facility]) Vital Signs (Past 12 Hours) Vital Signs Temp Pulse Pulse Resp BP BP Pulse Ox 06/01/21 13:31 77 29 H 204/78 H 98 06/01/21 13:00 70 25 H 188/93 H 96 06/01/21 11:46 72 22 174/81 H 98 06/01/21 11:31 69 22 174/81 H 98 06/01/21 11:00 66 9 L 144/71 H 99 06/01/21 10:30 66 24 174/74 H 98 06/01/21 10:00 66 20 205/76 H 99 06/01/21 09:30 68 24 180/78 H 98 06/01/21 09:00 64 21 201/104 H 98 06/01/21 08:51 98 06/01/21 08:30 60 22 191/83 H 99 06/01/21 08:28 36.8 C 64 18 213/79 H 99 06/01/21 08:23 64 12 213/79 H 99 Laboratory Results Short CBC 06/01/21 Range/Units 08:03 WBC 6.56 (4.8-10.8) K/uL Hgb 11.8 L (12.0-16.0) g/dL Hct 34.7 L (37-47) % Plt Count 249 (130-400) K/uL BMP 06/01/21 08:03 Sodium 133 L Potassium 4.2 Chloride 104 Carbon Dioxide 22 BUN 22 H Creatinine 0.76 Glucose 120 H Calcium 9.1 Cardiac Enzymes 06/01/21 Range/Units 08:03 Troponin I < 0.015 (0-0.045) ng/ml Liver Function 06/01/21 Range/Units 08:03 Total Bilirubin 0.5 (0.2-1) mg/dl Direct Bilirubin 0.1 (0-0.2) mg/dl AST 26 (15-37) U/L ALT 28 (12-78) U/L Alkaline Phosphatase 53 (45-117) U/L Albumin 3.5 (3.4-5.0) gm/dl Urine 06/01/21 Range/Units 09:50 Urine Color Yellow Urine Appearance Clear (Clear) Urine pH 5.5 (4.5-7.5) Ur Specific [place] 1.016 (1.000-1.030) Urine Protein Negative (Negative) Urine Glucose (UA) Negative (Negative) Diagnostic Findings Chest X-Ray 06/01/21 08:51 XR chest 1V portable HISTORY: Atypical Chest Pain COMPARISON: Chest 01/16/2020. FINDINGS: No pneumothorax. No pleural effusions. The lungs are hyperexpanded with apical predominant emphysematous changes. No new focal lung consolidations to suggest pneumonia. No evidence for pulmonary edema. The heart remains normal in size. IMPRESSION: No significant change compared to the prior study. No acute process. ACT 112: Negative or not required by law. Electronically signed by: Kenton Lewis M.D. 06/01/2021 9:16 AM Code Status & VTE Plan VTE Prophylaxis Plan VTE Prophylaxis will be ordered: Yes Supervising Physician Co-Signing Physician Notes Attending addendum The patient was sent home yesterday following hyponatremia and high blood pressure problem She got dizzy at home last evening and decided to come to hospital this morning She denies any other symptoms On examination Very anxious but otherwise hemodynamically stable with blood pressure of 162/63 Chest-clear to auscultate bilaterally Heart-S1-S2, regular Abdomen-benign Extremities-negative for any edema Her labs, imaging studies and EKG noted She has been put on intravenous ceftriaxone for possible UTI Other medications continued Agree with assessment and plan as outlined above by SHERRY Chen Dr (1) Carotid stenosis Laterality: bilateral Qualified Code(s): I65.23 - Occlusion and stenosis of bilateral carotid arteries
--- NOTE | 2021-06-01 15:28 | Electrocardiogram Report ---
Test Reason : Blood Pressure : / mmHG Vent. Rate : 064 BPM Atrial Rate : 064 BPM P-R Int : 192 ms QRS Dur : 090 ms QT Int : 404 ms P-R-T Axes : 078 037 052 degrees QTc Int : 416 ms Sinus rhythm with occasional Premature ventricular complexes Nonspecific ST abnormality Abnormal ECG When compared with ECG of 27-MAY-2021 14:46, Premature ventricular complexes are now Present Confirmed by Joao Madrid ([id number]) on 06/01/2021 3:28:13 PM Referred By: REFERRED SELF Confirmed By:Leonel Madrid
--- NOTE | 2021-06-01 16:36 | Emergency Department Note ---
Impression & Plan Acute UTI, Dehydration, Hypertension, Dizziness ED Provider Note NAME: ARIA HANDLEY AGE: 89 SEX: F ARRIVES VIA: Ambulance INFORMANT: Patient, ED PROVIDER(S): Gilson Nguyễn MD CHIEF COMPLAINT: Dizziness, weakness PLAN: Disposition: Admit MEDICAL DECISION MAKING: The patient is a pleasant 89 y/o woman with a pmhx of hypertension, ckd who presents to the emergency department accompanied by her daughter for evaluation of weakness, dizziness, and sweats in the setting of being discharged from [facility] yesterday afternoon after having admission for hyponatremia subsequently taken off of her hydrochlorothiazide and started on Amlodipine. She has not taken any of her medications today. On arrival the patient is in NAD, AF, with BP 200s/90s and otherwise VSS. She appears clinically dry. Abdomen is benign. She has no focal neurologic deficits. EKG without overt acute ischemia. CXR negative for acute cardiopulmonary process. WBC and platelets wnl. H/H similar to prior. Chemistry without acidosis. Sodium 133 and otherwise Electrolytes unremarkable. BUN/Cr > 20 c/w patients clinically dry appearance. LFTs without significant abnormality. Troponin negative/undetectable. UA is suspicious for infection. Upon re-evaluation the pa naheed did feel somewhat improved following IVF. Treated with keflex for UTI. However despite additional hydration the patient reported continued weakness and dizziness upon ambulation trial. Patient the her daughter were concerned about going home and preferred admission. Case was discussed with Vishal Chen PAC, with Dr. Breanna Rodgers hospitalist who will evaluate the patient for admission. Patient was ordered for her missed lisinopril and then carvedilol for her BP. BP medications given with caution to assess response given pattern of orthostasis to her symptoms of dizziness. She was also given her missed plavix. Triage Nursing notes reviewed and agree them. Prior medical records reviewed Vital Signs: reviewed and remarkable for hypertension. Differential diagnosis: Infection, dehydration, metabolic abnormality, hypo/hyperglycemia, electrolyte disturbance, anemia, hypoxia, cardiac sources, intracerebral event, toxicologic, neurologic, as well as other pathologies. ER treatment provided: See below. Diagnostics interpreted by me: ECG: NSR, 70 bpm, no ectopy, no overt ST elevation or depression. Cardiac Monitoring: An order for continuous cardiac monitoring was placed and demonstrated NSR, 70 bpm, no ectopy. Laboratory studies: See below Imaging studies: See below Consultation(s): Vishal Chen PAC, with Dr. Breanna Rodgers hospitalist who will evaluate the patient for admission. HPI: The patient is a pleasant 89 y/o woman with a pmhx of hypertension, ckd who presents to the emergency department accompanied by her daughter for evaluation of weakness, dizziness, and sweats in the setting of being discharged from [facility] yesterday afternoon after having admission for hyponatremia subsequently taken off of her hydrochlorothiazide and started on Amlodipine. She has not taken any of her medications today. ROS: See above HPI for pertinent positives & negatives. A total of 10 systems reviewed and were otherwise negative. PAST MEDICAL HISTORY:See Below PAST SURGICAL HISTORY:See Below FAMILY HISTORY:See Below SOCIAL HISTORY:See Below HOME MEDICATIONS:See Below ALLERGIES:See Below VITALS:See Below PHYSICAL EXAMINATION: GENERAL: Awake, alert, fatigued-appearing, in no distress HENT: Normocephalic, atraumatic. Oropharynx with dry mucous membranes and otherwise unremarkable. EYES: Normal conjunctiva. Sclera non-icteric. EOMI. No nystamgus. PEARRL. NECK: Supple. No nuchal rigidity. FROM. No JVD. RESPIRATORY: Clear to auscultation. CARDIAC: Regular rate, normal rhythm. Extremities warm and well perfused. Pulses equal. ABDOMEN: Soft, non-distended. No tenderness to palpation. No rebound or guarding. No masses. RECTAL: Deferred. MUSCULOSKELETAL: Chest examination reveals no tenderness. The back is symmetrical on inspection without obvious abnormality. There is no CVA tenderness to palpation. No joint edema. LOWER EXTREMITIES: Calves are equal size bilaterally and non-tender. No edema. No discoloration. NEURO: Normal sensorium. No sensory or motor deficits noted. 4+/5 strength and SILT x 4 extremities. Intact finger to nose. SKIN: No rash or jaundice noted. Gilson Nguyễn MD Past Med/Surg History Medical History CAD in [place] artery Carotid stenosis CKD (chronic kidney disease) stage 3, GFR 30-59 ml/min Dyslipidemia History of non-ST elevation myocardial infarction (NSTEMI) History of poliomyelitis Hypertension Hyponatremia Open-angle glaucoma Peripheral vascular disease (09/28/12) Renal artery stenosis Surgical History History of S/P coronary artery stent placement Family History Other Diabetes Stroke Social History Smoking Status: Former smoker Second Hand Exposure: No; Do You Dip or Chew Tobacco: No; Tobacco Cessation Education Requested by Patient: No Hx Alcohol Use: No Hx Substance Use: No Preferred Language: [place] Communication Ability: Effective Assistant Center Manager Required: No Beliefs That Will Affect Care: Advent Advent Beliefs: Yazidism marital status: / Current Living Situation: Alone current occupational status: retired Other Information That Helps Us Care for You: No Feels Safe at Home: Yes Safety Concerns: Feels Safe At This Time Assistive Devices: Denture - Upper and Glasses Allergies Allergies Allergy/AdvReac Type Severity Reaction Status Date / Time No Known Allergies Allergy Verified 06/01/21 17:16 Home Meds Home Medications Medication Instructions Recorded Confirmed brimonidine 0.2 %-timolol 0.5 % 1 drp OPB BID 02/24/19 06/01/21 eye drops (Combigan) brinzolamide 1 % eye 1 drp OPB BID 02/24/19 06/01/21 drops,suspension (Azopt) carvedilol 3.125 mg tablet (Coreg) 3.125 mg PO BID 02/24/19 06/01/21 clopidogrel 75 mg tablet (Plavix) 75 mg PO QAM 02/24/19 06/01/21 isosorbide mononitrate 30 mg 30 mg PO QAM 02/24/19 06/01/21 tablet,extended release 24 hr nitroglycerin 0.4 mg sublingual 0.4 mg SUBLINGUAL UD PRN 02/24/19 06/01/21 tablet (Nitrostat) lisinopril 20 mg tablet 20 mg PO BID 05/27/21 06/01/21 psyllium husk 0.4 gram capsule 0.4 g PO QAM 05/27/21 06/01/21 (Metamucil) ascorbic acid (vitamin C) 250 mg 250 mg PO DAILY 06/01/21 06/01/21 tablet atorvastatin 80 mg tablet 80 mg PO DAILY 06/01/21 06/01/21 ferrous sulfate 325 mg (65 mg 325 mg PO DAILY 06/01/21 06/01/21 iron) tablet hydrochlorothiazide 12.5 mg capsule 12.5 mg PO DAILY 06/01/21 06/01/21 multivitamin with minerals 1 tab PO DAILY 06/01/21 06/01/21 Previous Rx's Medication Instructions Recorded amlodipine 5 mg tablet (Norvasc) 5 mg PO QAM #30 tab 05/31/21 Saccharomyces boulardii 250 mg 250 mg PO BID #20 cap 06/01/21 capsule (Florastor) cephalexin 500 mg capsule 500 mg PO BID 7 Days #14 cap 06/01/21 Results & Data (ED) Vital Signs Vital Signs - 24 hr 06/01/21 08:23 06/01/21 08:28 06/01/21 08:30 Temperature 36.8 C Temperature Source Oral Pulse Rate 64 64 60 Pulse Rate [Right Finger] Pulse Rate from SpO2 Sensor 64 60 Pulse Rhythm Regular Pulse Strength Normal Respiratory Rate 12 18 22 Respiratory Effort / Characteristics Non-Labored Spontaneous Respiratory Depth Normal Respiratory Pattern Regular Blood Pressure 213/79 H 213/79 H 191/83 H Blood Pressure [Right Arm] Blood Pressure Mean 123 123 119 Blood Pressure Mean [Right Arm] Blood Pressure Position Sitting Pulse Oximetry 99 99 99 Oxygen Delivery Method Room Air Sepsis Recent Fever Within 48 Hours No Sepsis New/Unexplained Change in Mental Status N/A Sepsis Action Taken by Nursing No Action Required 06/01/21 08:51 06/01/21 09:00 06/01/21 09:30 Temperature Temperature Source Pulse Rate 64 68 Pulse Rate [Right Finger] Pulse Rate from SpO2 Sensor 65 66 Pulse Rhythm Pulse Strength Respiratory Rate 21 24 Respiratory Effort / Characteristics Respiratory Depth Respiratory Pattern Blood Pressure 201/104 H 180/78 H Blood Pressure [Right Arm] Blood Pressure Mean 136 112 Blood Pressure Mean [Right Arm] Blood Pressure Position Pulse Oximetry 98 98 98 Oxygen Delivery Method Room Air Sepsis Recent Fever Within 48 Hours Sepsis New/Unexplained Change in Mental Status Sepsis Action Taken by Nursing 06/01/21 10:00 06/01/21 10:30 06/01/21 11:00 Temperature Temperature Source Pulse Rate 66 66 66 Pulse Rate [Right Finger] Pulse Rate from SpO2 Sensor 61 61 63 Pulse Rhythm Pulse Strength Respiratory Rate 20 24 9 L Respiratory Effort / Characteristics Respiratory Depth Respiratory Pattern Blood Pressure 205/76 H 174/74 H 144/71 H Blood Pressure [Right Arm] Blood Pressure Mean 119 107 95 Blood Pressure Mean [Right Arm] Blood Pressure Position Pulse Oximetry 99 98 99 Oxygen Delivery Method Sepsis Recent Fever Within 48 Hours Sepsis New/Unexplained Change in Mental Status Sepsis Action Taken by Nursing 06/01/21 11:31 06/01/21 11:46 06/01/21 13:00 Temperature Temperature Source Pulse Rate 69 70 Pulse Rate [Right Finger] 72 Pulse Rate from SpO2 Sensor 54 L 64 Pulse Rhythm Pulse Strength Respiratory Rate 22 22 25 H Respiratory Effort / Characteristics Non-Labored Respiratory Depth Normal Respiratory Pattern Blood Pressure 174/81 H 188/93 H Blood Pressure [Right Arm] 174/81 H Blood Pressure Mean 112 124 Blood Pressure Mean [Right Arm] 112 Blood Pressure Position Pulse Oximetry 98 98 96 Oxygen Delivery Method Room Air Sepsis Recent Fever Within 48 Hours Sepsis New/Unexplained Change in Mental Status Sepsis Action Taken by Nursing 06/01/21 13:31 06/01/21 14:05 06/01/21 14:30 Temperature Temperature Source Pulse Rate 77 Pulse Rate [Right Finger] Pulse Rate from SpO2 Sensor 71 Pulse Rhythm Pulse Strength Respiratory Rate 29 H Respiratory Effort / Characteristics Respiratory Depth Respiratory Pattern Blood Pressure 204/78 H 196/80 H 190/87 H Blood Pressure [Right Arm] Blood Pressure Mean 120 118 121 Blood Pressure Mean [Right Arm] Blood Pressure Position Pulse Oximetry 98 Oxygen Delivery Method Sepsis Recent Fever Within 48 Hours Sepsis New/Unexplained Change in Mental Status Sepsis Action Taken by Nursing Laboratory Data Attestation: I reviewed the patient's lab results. Result diagrams: 06/01/21 08:03 06/01/21 08:03 Lab Results 06/01/21 06/01/21 06/01/21 Range/Units 08:03 08:03 08:03 WBC 6.56 (4.8-10.8) K/uL RBC 3.62 L (4.2-5.4) M/uL Hgb 11.8 L (12.0-16.0) g/dL Hct 34.7 L (37-47) % MCV 95.9 (80-100) fL MCH 32.6 (25-34) pg MCHC 34.0 (32-36) g/dL RDW Std Deviation 48.3 H (36.4-46.3) fL RDW Coeff of [place] 13.7 (11.5-14.5) % Plt Count 249 (130-400) K/uL MPV 9.8 (7.4-10.4) fL Immature Gran % (Auto) 0.2 % Neut % (Auto) 65.9 % Lymph % (Auto) 23.6 % [place] % (Auto) 9.6 % Eos % (Auto) 0.5 % Baso % (Auto) 0.2 % Neut # (Auto) 4.33 (1.4-6.5) K/uL Lymph # (Auto) 1.55 (1.2-3.4) K/uL [place] # (Auto) 0.63 H (0.11-0.59) K/uL Eos # (Auto) 0.03 (0-0.5) K/uL Baso # (Auto) 0.01 (0-0.2) K/uL Immature Gran # (Auto) 0.01 (0.00-0.02) K/uL APTT 23.4 (21.0-31.0) Seconds PTT Ratio 0.9 Sodium 133 L (136-145) mmol/L Potassium 4.2 (3.5-5.1) mmol/L Chloride 104 (98-107) mmol/L Carbon Dioxide 22 (21-32) mmol/L Anion Gap 7.0 (3-11) BUN 22 H (7-18) mg/dl Creatinine 0.76 (0.6-1.2) mg/dl Est Cr Clr Drug Dosing 37.4 ml/min Est GFR ( Amer) 80.6 ml/min Est GFR (Non-Af Amer) 69.5 ml/min BUN/Creatinine Ratio 29.1 H (10-20) Glucose 120 H (70-99) mg/dl Calcium 9.1 (8.5-10.1) mg/dl Phosphorus 2.4 L (2.5-4.9) mg/dl Magnesium 1.8 (1.8-2.4) mg/dl Total Bilirubin 0.5 (0.2-1) mg/dl Direct Bilirubin 0.1 (0-0.2) mg/dl AST 26 (15-37) U/L ALT 28 (12-78) U/L Alkaline Phosphatase 53 (45-117) U/L Troponin I < 0.015 (0-0.045) ng/ml Total Protein 6.6 (6.4-8.2) gm/dl Albumin 3.5 (3.4-5.0) gm/dl Globulin 3.1 (2.5-4.0) gm/dl Albumin/Globulin Ratio 1.1 (0.9-2) Lipase 240 (73-393) U/L Urine Color Urine Appearance (Clear) Urine pH (4.5-7.5) Ur Specific [place] (1.000-1.030) Urine Protein (Negative) Urine Glucose (UA) (Negative) Urine Ketones (Negative) Urine Blood (Negative) Urine Nitrite (Negative) Urine Bilirubin (Negative) Urine Urobilinogen (Negative) Ur Leukocyte Esterase (Negative) Urine WBC (Auto) (0-5) /hpf Urine RBC (Auto) (0-4) /hpf U Hyaline Cast (Auto) (0-5) /lpf U Epithel Cells (Auto) (0-5) /lpf Urine Bacteria (Auto) (Negative) COVID-19 Eval Order SARS-CoV-2 (PCR) (Negative) 06/01/21 06/01/21 06/01/21 Range/Units 09:50 09:57 09:57 WBC (4.8-10.8) K/uL RBC (4.2-5.4) M/uL Hgb (12.0-16.0) g/dL Hct (37-47) % MCV (80-100) fL MCH (25-34) pg MCHC (32-36) g/dL RDW Std Deviation (36.4-46.3) fL RDW Coeff of [place] (11.5-14.5) % Plt Count (130-400) K/uL MPV (7.4-10.4) fL Immature Gran % (Auto) % Neut % (Auto) % Lymph % (Auto) % [place] % (Auto) % Eos % (Auto) % Baso % (Auto) % Neut # (Auto) (1.4-6.5) K/uL Lymph # (Auto) (1.2-3.4) K/uL [place] # (Auto) (0.11-0.59) K/uL Eos # (Auto) (0-0.5) K/uL Baso # (Auto) (0-0.2) K/uL Immature Gran # (Auto) (0.00-0.02) K/uL APTT (21.0-31.0) Seconds PTT Ratio Sodium (136-145) mmol/L Potassium (3.5-5.1) mmol/L Chloride (98-107) mmol/L Carbon Dioxide (21-32) mmol/L Anion Gap (3-11) BUN (7-18) mg/dl Creatinine (0.6-1.2) mg/dl Est Cr Clr Drug Dosing ml/min Est GFR ( Amer) ml/min Est GFR (Non-Af Amer) ml/min BUN/Creatinine Ratio (10-20) Glucose (70-99) mg/dl Calcium (8.5-10.1) mg/dl Phosphorus (2.5-4.9) mg/dl Magnesium (1.8-2.4) mg/dl Total Bilirubin (0.2-1) mg/dl Direct Bilirubin (0-0.2) mg/dl AST (15-37) U/L ALT (12-78) U/L Alkaline Phosphatase (45-117) U/L Troponin I (0-0.045) ng/ml Total Protein (6.4-8.2) gm/dl Albumin (3.4-5.0) gm/dl Globulin (2.5-4.0) gm/dl Albumin/Globulin Ratio (0.9-2) Lipase (73-393) U/L Urine Color Yellow Urine Appearance Clear (Clear) Urine pH 5.5 (4.5-7.5) Ur Specific [place] 1.016 (1.000-1.030) Urine Protein Negative (Negative) Urine Glucose (UA) Negative (Negative) Urine Ketones Negative (Negative) Urine Blood Negative (Negative) Urine Nitrite Negative (Negative) Urine Bilirubin Negative (Negative) Urine Urobilinogen Negative (Negative) Ur Leukocyte Esterase 2+ H (Negative) Urine WBC (Auto) 10-30 H (0-5) /hpf Urine RBC (Auto) 0-4 (0-4) /hpf U Hyaline Cast (Auto) 1-5 (0-5) /lpf U Epithel Cells (Auto) 10-20 H (0-5) /lpf Urine Bacteria (Auto) Negative (Negative) COVID-19 Eval Order Covid19 at [facility] SARS-CoV-2 (PCR) NEGATIVE (Negative) Administered Medications Brimonidine/Timolol (Brimonidine Tartrate/Timolol) 1 drops OP BID [facility] Stop: 07/01/21 20:59 Last Admin: 06/01/21 20:06 Dose: Not Given Documented by: [id number] Brinzolamide (Brinzolamide (Azopt) Ops 10 Ml Btl) 1 drops OPB BID [facility] Stop: 07/01/21 20:59 Last Admin: 06/01/21 20:06 Dose: Not Given Documented by: [id number] Carvedilol (Carvedilol 3.125 Mg Tab) 3.125 mg PO BID [facility] Stop: 07/01/21 20:59 Last Admin: 06/01/21 20:58 Dose: Not Given Documented by: [id number] Heparin Sodium (Porcine) (Heparin Sod 5,000 Unit/0.5 Ml Vial) 5,000 units SQ Q12 [facility] Stop: 07/01/21 20:59 Last Admin: 06/01/21 20:08 Dose: 5,000 units Documented by: [id number] Ceftriaxone Sodium 1,000 mg/ (Dextrose) 50 mls @ 100 mls/hr IV Q24H [facility]; Protocol Stop: 06/06/21 17:59 Last Infusion: 06/01/21 19:47 Dose: 0 mls/hr Documented by: [id number] Admin: 06/01/21 18:15 Dose: 100 mls/hr Documented by: [id number] Lisinopril (Lisinopril 20 Mg Tab) 20 mg PO BID [facility] Stop: 07/01/21 20:59 Last Admin: 06/01/21 20:58 Dose: Not Given Documented by: [id number] Discontinued Medications Amlodipine Besylate (Amlodipine Besylate 5 Mg Tab) 5 mg PO NOW ONE Stop: 06/01/21 14:47 Last Admin: 06/01/21 15:43 Dose: 5 mg Documented by: [id number] Carvedilol (Carvedilol 3.125 Mg Tab) 3.125 mg PO NOW ONE Stop: 06/01/21 14:09 Last Admin: 06/01/21 15:43 Dose: 3.125 mg Documented by: [id number] Cephalexin HCl (Cephalexin 250 Mg Cap) 500 mg PO NOW ONE Stop: 06/01/21 11:14 Last Admin: 06/01/21 11:47 Dose: 500 mg Documented by: [id number] Clopidogrel Bisulfate (Clopidogrel Bisulfate 75 Mg Tab) 75 mg PO NOW ONE Stop: 06/01/21 13:04 Last Admin: 06/01/21 13:22 Dose: 75 mg Documented by: [id number] Sodium Chloride (Nss) 500 mls @ 999 mls/hr IV .Q31M ONE Stop: 06/01/21 09:23 Last Infusion: 06/01/21 10:30 Dose: 0 mls/hr Documented by: [id number] Admin: 06/01/21 10:00 Dose: 999 mls/hr Documented by: [id number] Sodium Chloride (Nss) 500 mls @ 999 mls/hr IV .Q31M ONE Stop: 06/01/21 13:16 Last Infusion: 06/01/21 15:16 Dose: 0 mls/hr Documented by: [id number] Admin: 06/01/21 13:20 Dose: 999 mls/hr Documented by: [id number] Isosorbide Mononitrate (Isosorbide [place] Extended Rel 30 Mg Tabcr) 30 mg PO NOW ONE Stop: 06/01/21 14:47 Last Admin: 06/01/21 15:43 Dose: 30 mg Documented by: [id number] Lisinopril (Lisinopril 20 Mg Tab) 20 mg PO NOW STA Stop: 06/01/21 13:02 Last Admin: 06/01/21 13:34 Dose: 20 mg Documented by: [id number] Miscellaneous (Combigan~Order Awaiting Action) 1 ea N/A QS JUAN JOSÉ Stop: 07/01/21 17:29 Last Admin: 06/01/21 18:16 Dose: 1 ea Documented by: [id number] Imaging Data Radiologist's Impression: Chest X-Ray 06/01/21 08:51 XR chest 1V portable HISTORY: Atypical Chest Pain COMPARISON: Chest 01/16/2020. FINDINGS: No pneumothorax. No pleural effusions. The lungs are hyperexpanded with apical predominant emphysematous changes. No new focal lung consolidations to suggest pneumonia. No evidence for pulmonary edema. The heart remains normal in size. IMPRESSION: No significant change compared to the prior study. No acute process. ACT 112: Negative or not required by law. Electronically signed by: Kenton Lewis M.D. 06/01/2021 9:16 AM Discharge Plan Visit Data Chief Complaint: Weakness Stated Complaint: WEAKNESS, ANXIETY ED Provider: Gilson Nguyễn Discharge Problem: Acute UTI, Dehydration, Hypertension, Dizziness Patient Disposition: Home - Self-Care Condition: Good Discharge Instructions Interventions: ED Discharge Assessment Last Done: 06/01/21 16:15 Discharge Problem: Hypertension Qualifiers: Hypertension type: unspecified Qualified Code(s): I10 - Essential (primary) hypertension
[2021-06-01] MEDS ORDERED: ONDANSETRON INJ 2 MG/ML 2 ML VIAL IV PRN (16:50)
[2021-06-01] MEDS ORDERED: POLYETHYLENE (MIRALAX) 17 GM PACK PO PRN (16:50)
[2021-06-01] MEDS ORDERED: ACETAMINOPHEN 325 MG TAB PO PRN (16:50)
[2021-06-01] MEDS ORDERED: COMBIGAN~ORDER AWAITING ACTION SCH (17:30)
[2021-06-01] MEDS: cefTRIAXone SODIUM 1,000 MG in DEXTROSE 5% 50 ML IV SCH (18:15)
[2021-06-01] MEDS: BRIMONIDINE TARTRATE/TIMOLOL OP SCH (20:06)
[2021-06-01] MEDS: BRINZOLAMIDE (AZOPT) OPS 10 ML BTL OPB SCH (20:06)
[2021-06-01] MEDS: HEPARIN SOD 5,000 UNIT/0.5 ML VIAL SQ SCH (20:08)
[2021-06-01] MEDS: lisinopril 20 MG TAB PO SCH (20:58)
[2021-06-01] MEDS: carvediloL 3.125 MG TAB PO SCH (20:58)
[2021-06-02 06:54] LABS: Hematocrit (blood only) 31.5 % (37-47); Hemoglobin 10.6 g/dL (12.0-16.0); Mean Corpuscular Hemoglobin 32.4 pg (25-34); Mean Corpuscular Hgb Conc 33.7 g/dL (32-36); Mean Corpuscular Volume 96.3 fL (80-100); Mean Platelet Volume 9.8 fL (7.4-10.4); Platelet Count 250 K/uL (130-400); RDW Coefficient of Variation 13.8 % (11.5-14.5); RDW Standard Deviation 48.9 fL (36.4-46.3); Red Blood Count 3.27 M/uL (4.2-5.4); White Blood Count 7.23 K/uL (4.8-10.8)
[2021-06-02 07:32] LABS: BUN Creatinine Ratio 23.9 (10-20); Calcium 7.9 mg/dl (8.5-10.1); Creatinine Clr Calc Pharmacy 35.5 ml/min; Est GFR (African American) 86.1 ml/min; Est GFR (Non-African American) 74.3 ml/min
[2021-06-02] MEDS: PSYLLIUM 58.6% POWDER PACKET PO SCH (08:15)
[2021-06-02] MEDS: CEROVITE ADV FORMULA TAB PO SCH (08:15)
[2021-06-02] MEDS: ASCORBIC ACID 500 MG TAB PO SCH (08:16)
[2021-06-02] MEDS: ISOSORBIDE MONO EXTENDED REL 30 MG TABCR PO SCH (08:16)
[2021-06-02] MEDS: CLOPIDOGREL BISULFATE 75 MG TAB PO SCH (08:16)
[2021-06-02] MEDS: FERROUS SULFATE 325 MG TAB PO SCH (08:16)
[2021-06-02] MEDS: hydroCHLOROthiazide 25 MG TAB PO SCH (08:17)
[2021-06-02] MEDS: carvediloL 3.125 MG TAB PO SCH ×2 (08:17→20:53)
[2021-06-02] MEDS: ATORVASTATIN 40 MG TAB PO SCH (08:17)
[2021-06-02] MEDS: amLODIPine BESYLATE 5 MG TAB PO SCH (08:17)
[2021-06-02] MEDS: lisinopril 20 MG TAB PO SCH ×2 (08:17→20:54)
[2021-06-02] MEDS: BRIMONIDINE TARTRATE/TIMOLOL OP SCH ×2 (08:18→20:53)
[2021-06-02] MEDS: BRINZOLAMIDE (AZOPT) OPS 10 ML BTL OPB SCH ×2 (08:18→20:52)
[2021-06-02] MEDS: HEPARIN SOD 5,000 UNIT/0.5 ML VIAL SQ SCH ×2 (08:18→20:55)
--- NOTE | 2021-06-02 16:59 | Hospitalist Progress Note ---
Date of Service June 02, 2021 Assessment & Plan (1) Generalized weakness: Plan: This is an 89yo F with a PMH of CAD, NSTEMI s/p SAM to 2nd diagonal branch, HLD, HTN, carotid artery stenosis, CKD stage III, renal artery stenosis, glaucoma, PVD and hyponatremia who presents with continued lightheadedness and generalized weakness. Recently admitted to our service from 05/27-05/31 for hyponatremia and hypertensive urgency Hyponatremia improved from 125 to 132 with holding hctz, bumex Clonidine thought to be contributing to lightheadedness Bumex and clonidine discontinued at time of discharge on 05/31 Returns today with lightheadedness, weakness in setting of UTI, hypertensive urgency No more symptoms of lightheadedness No evidence of UTI Has had PT and OT evaluation and recommended rehab (2) Hypertensive urgency: Plan: BP 213/79 - did not take any antihypertensives with morning Renal ultrasound completed on 05/24/2021 showing right-sided possible high-grade greater than 60% stenosis of the renal artery, no stenosis on the left Likely contributing to symptoms of lightheadedness, weakness BP improved to 162/63 after being given missed doses of lisinopril, amlodipine, carvedilol and Imdur Continue home blood pressure medication regimen Blood pressure remained controlled (3) Acute UTI: Plan: UA with 2+ leuk esterase, patient with increased frequency and urgency Given dose of Keflex in ED. Will continue with Rocephin Follow urine culture-negative for any infection We will stop ceftriaxone (4) CKD (chronic kidney disease) stage 3, GFR 30-59 ml/min: Plan: Kidney function at baseline. Continue to monitor with daily BMP Hyponatremia is corrected (5) CAD in [place] artery: Plan: Stable. Continue plavix, statin, baby aspirin Follows with cardiology in [place] (6) Carotid stenosis: Plan: H/o carotid ultrasound completed 02/24/21: * Right carotid artery duplex examination indicates evidence of 50-69% stenosis of the internal carotid artery * Left carotid artery duplex examination indicates evidence of 50-69% stenosis of the internal carotid artery Continue statin DVT Ppx: SQ heparin Code status: DNR PCP:[facility] Dispo: Observation med tele Patient seen in collaboration with Dr. Carlos. Please see addendum. Admission and Anticipated Discharge Date Admission Date: June 01, 2021 Subjective 06/02/2021 The patient was seen and examined in medical telemetry unit She has been feeling much better Denies any symptoms She will need to go to rehab Review of Systems Review of Systems: All systems reviewed and are unremarkable except as noted below Physical Exam Physical Exam: Sitting on a chair without any acute distress Constitutional: + thin; not ill appearing Eyes: PERRL, conjunctivae normal, anicteric sclerae ENMT: external ear and nose normal, oropharynx normal Neck: trachea midline, no thyromegaly Respiratory: normal respiratory effort, lungs clear to auscultation Cardiovascular: Rate/Rhythm: regular rate and regular rhythm; not tachycardic Heart Sounds: normal S1, normal S2 and + murmur (2/6 ESM over precordium) Gastrointestinal (Abdomen): Inspection/Auscultation: normal bowel sounds; abdomen not distended Percussion/Palpation: abdomen soft; abdomen nontender Musculoskeletal: No acute arthritis in any joint Neurologic: Alert, awake and oriented x3. Generally weak without any focal neuro deficit Lymphatic: no cervical or axillary lymphadenopathy Results & Data Results & Data ([facility]) Vital Signs (Past 12 Hours) Vital Signs Temp Pulse Pulse Resp BP BP Pulse Ox 06/02/21 14:56 63 06/02/21 11:30 36.7 C 58 L 18 132/71 98 06/02/21 07:58 36.7 C 66 18 177/75 H 96 06/02/21 07:10 68 Laboratory Results Short CBC 06/02/21 Range/Units 06:02 WBC 7.23 (4.8-10.8) K/uL Hgb 10.6 L (12.0-16.0) g/dL Hct 31.5 L (37-47) % Plt Count 250 (130-400) K/uL BMP 06/02/21 06:02 Sodium 134 L Potassium 4.0 Chloride 106 Carbon Dioxide 24 BUN 17 Creatinine 0.72 Glucose 98 Calcium 7.9 L Medications Administered Current Inpatient Medications Acetaminophen (Acetaminophen 325 Mg Tab) 650 mg PO Q4H PRN PRN Reason: Pain or Fever Stop: 07/01/21 16:49 Amlodipine Besylate (Amlodipine Besylate 5 Mg Tab) 5 mg PO QAM [facility] Stop: 07/02/21 08:59 Last Admin: 06/02/21 08:17 Dose: 5 mg Documented by: Ascorbic Acid (Ascorbic Acid 500 Mg Tab) 250 mg PO DAILY [facility] Stop: 07/02/21 08:59 Last Admin: 06/02/21 08:16 Dose: 250 mg Documented by: Atorvastatin Calcium (Atorvastatin 40 Mg Tab) 80 mg PO DAILY [facility] Stop: 07/02/21 08:59 Last Admin: 06/02/21 08:17 Dose: 80 mg Documented by: Brimonidine/Timolol (Brimonidine Tartrate/Timolol) 1 drops OP BID [facility] Stop: 07/01/21 20:59 Last Admin: 06/02/21 08:18 Dose: 1 drops Documented by: Brinzolamide (Brinzolamide (Azopt) Ops 10 Ml Btl) 1 drops OPB BID [facility] Stop: 07/01/21 20:59 Last Admin: 06/02/21 08:18 Dose: 1 drops Documented by: Carvedilol (Carvedilol 3.125 Mg Tab) 3.125 mg PO BID [facility] Stop: 07/01/21 20:59 Last Admin: 06/02/21 08:17 Dose: 3.125 mg Documented by: Clopidogrel Bisulfate (Clopidogrel Bisulfate 75 Mg Tab) 75 mg PO QAM [facility] Stop: 07/02/21 08:59 Last Admin: 06/02/21 08:16 Dose: 75 mg Documented by: Ferrous Sulfate (Ferrous Sulfate 325 Mg Tab) 325 mg PO DAILY [facility] Stop: 07/02/21 08:59 Last Admin: 06/02/21 08:16 Dose: 325 mg Documented by: Heparin Sodium (Porcine) (Heparin Sod 5,000 Unit/0.5 Ml Vial) 5,000 units SQ Q12 [facility] Stop: 07/01/21 20:59 Last Admin: 06/02/21 08:18 Dose: 5,000 units Documented by: Hydrochlorothiazide (Hydrochlorothiazide 25 Mg Tab) 12.5 mg PO DAILY [facility] Stop: 07/02/21 08:59 Last Admin: 06/02/21 08:17 Dose: 12.5 mg Documented by: Ceftriaxone Sodium 1,000 mg/ (Dextrose) 50 mls @ 100 mls/hr IV Q24H [facility]; Protocol Stop: 06/06/21 17:59 Last Infusion: 06/01/21 19:47 Dose: Infused Documented by: Isosorbide Mononitrate (Isosorbide [place] Extended Rel 30 Mg Tabcr) 30 mg PO QAM [facility] Stop: 07/02/21 08:59 Last Admin: 06/02/21 08:16 Dose: 30 mg Documented by: Lisinopril (Lisinopril 20 Mg Tab) 20 mg PO BID [facility] Stop: 07/01/21 20:59 Last Admin: 06/02/21 08:17 Dose: 20 mg Documented by: Multivitamins/Minerals (Cerovite Adv Formula Tab) 1 tab PO DAILY [facility] Stop: 07/02/21 08:59 Last Admin: 06/02/21 08:15 Dose: 1 tab Documented by: Ondansetron HCl (Ondansetron Inj 2 Mg/Ml 2 Ml Vial) 4 mg IV Q6H PRN PRN Reason: Nausea Stop: 07/01/21 16:49 Polyethylene Glycol (Polyethylene (Miralax) 17 Gm Pack) 17 gm PO DAILY PRN PRN Reason: Constipation Stop: 07/01/21 16:49 Psyllium Hydrophilic Mucilloid (Psyllium 58.6% Powder Packet) 1 pkt PO QAM [facility] Stop: 07/02/21 08:59 Last Admin: 06/02/21 08:15 Dose: 1 pkt Documented by: (1) Carotid stenosis Laterality: bilateral Qualified Code(s): I65.23 - Occlusion and stenosis of bilateral carotid arteries
[2021-06-02] MEDS: cefTRIAXone SODIUM 1,000 MG in DEXTROSE 5% 50 ML IV SCH (17:56)
[2021-06-03 06:32] LABS: Hematocrit (blood only) 32.6 % (37-47); Hemoglobin 11.2 g/dL (12.0-16.0); Mean Corpuscular Hemoglobin 32.4 pg (25-34); Mean Corpuscular Hgb Conc 34.4 g/dL (32-36); Mean Corpuscular Volume 94.2 fL (80-100); Mean Platelet Volume 9.4 fL (7.4-10.4); Platelet Count 257 K/uL (130-400); RDW Coefficient of Variation 13.7 % (11.5-14.5); RDW Standard Deviation 47.1 fL (36.4-46.3); Red Blood Count 3.46 M/uL (4.2-5.4); White Blood Count 7.54 K/uL (4.8-10.8)
[2021-06-03 06:49] LABS: BUN Creatinine Ratio 25.9 (10-20); Creatinine Clr Calc Pharmacy 45.8 ml/min; Est GFR (African American) 95.8 ml/min; Est GFR (Non-African American) 82.7 ml/min; Potassium 3.7 mmol/L (3.5-5.1)
[2021-06-03] MEDS: carvediloL 3.125 MG TAB PO SCH ×2 (07:15→20:11)
[2021-06-03] MEDS: lisinopril 20 MG TAB PO SCH ×2 (07:15→20:10)
[2021-06-03] MEDS: BRIMONIDINE TARTRATE/TIMOLOL OP SCH ×2 (08:50→20:10)
[2021-06-03] MEDS: BRINZOLAMIDE (AZOPT) OPS 10 ML BTL OPB SCH ×2 (08:50→20:09)
[2021-06-03] MEDS: hydroCHLOROthiazide 25 MG TAB PO SCH (08:51)
[2021-06-03] MEDS: ASCORBIC ACID 500 MG TAB PO SCH (08:51)
[2021-06-03] MEDS: amLODIPine BESYLATE 5 MG TAB PO SCH (08:51)
[2021-06-03] MEDS: CEROVITE ADV FORMULA TAB PO SCH (08:51)
[2021-06-03] MEDS: CLOPIDOGREL BISULFATE 75 MG TAB PO SCH (08:52)
[2021-06-03] MEDS: FERROUS SULFATE 325 MG TAB PO SCH (08:52)
[2021-06-03] MEDS: ATORVASTATIN 40 MG TAB PO SCH (08:52)
[2021-06-03] MEDS: ISOSORBIDE MONO EXTENDED REL 30 MG TABCR PO SCH (08:52)
[2021-06-03] MEDS: PSYLLIUM 58.6% POWDER PACKET PO SCH (08:53)
[2021-06-03] MEDS: HEPARIN SOD 5,000 UNIT/0.5 ML VIAL SQ SCH ×2 (08:53→20:10)
[2021-06-03] MEDS: ESCITALOPRAM OXALATE 10 MG TAB PO SCH (13:30)
[2021-06-04] MEDS ORDERED: amLODIPine BESYLATE 5 MG TAB PO SCH (04:50)
[2021-06-04] MEDS: BRIMONIDINE TARTRATE/TIMOLOL OP SCH ×2 (08:29→20:14)
[2021-06-04] MEDS: carvediloL 3.125 MG TAB PO SCH ×2 (08:29→20:13)
[2021-06-04] MEDS: BRINZOLAMIDE (AZOPT) OPS 10 ML BTL OPB SCH ×2 (08:29→20:14)
[2021-06-04] MEDS: lisinopril 20 MG TAB PO SCH ×2 (08:32→20:13)
[2021-06-04] MEDS: CLOPIDOGREL BISULFATE 75 MG TAB PO SCH (08:33)
[2021-06-04] MEDS: CEROVITE ADV FORMULA TAB PO SCH (08:33)
[2021-06-04] MEDS: ASCORBIC ACID 500 MG TAB PO SCH (08:33)
[2021-06-04] MEDS: ATORVASTATIN 40 MG TAB PO SCH (08:33)
[2021-06-04] MEDS: ISOSORBIDE MONO EXTENDED REL 30 MG TABCR PO SCH (08:33)
[2021-06-04] MEDS: FERROUS SULFATE 325 MG TAB PO SCH (08:34)
[2021-06-04] MEDS: HEPARIN SOD 5,000 UNIT/0.5 ML VIAL SQ SCH ×2 (08:34→20:15)
[2021-06-04] MEDS: ESCITALOPRAM OXALATE 10 MG TAB PO SCH (08:34)
[2021-06-04] MEDS: PSYLLIUM 58.6% POWDER PACKET PO SCH (08:34)
--- NOTE | 2021-06-04 16:48 | Hospitalist Progress Note ---
Date of Service June 03, 2021 Late documentation; Assessment & Plan (1) Generalized weakness: Plan: This is an 89yo F with a PMH of CAD, NSTEMI s/p SAM to 2nd diagonal branch, HLD, HTN, carotid artery stenosis, CKD stage III, renal artery stenosis, glaucoma, PVD and hyponatremia who presents with continued lightheadedness and generalized weakness. Recently admitted to our service from 05/27-05/31 for hyponatremia and hypertensive urgency Hyponatremia improved from 125 to 132 with holding hctz, bumex Clonidine thought to be contributing to lightheadedness Bumex and clonidine discontinued at time of discharge on 05/31 Returns today with lightheadedness, weakness in setting of UTI, hypertensive urgency No more symptoms of lightheadedness No evidence of UTI Has had PT and OT evaluation and recommended rehab Has been waiting for placement Generalized anxiety disorder PCP wanted to have started her on some medication to control anxiety and depression Lexapro 10 mg has been prescribed (2) Hypertensive urgency: Plan: BP 213/79 - did not take any antihypertensives with morning Renal ultrasound completed on 05/24/2021 showing right-sided possible high-grade greater than 60% stenosis of the renal artery, no stenosis on the left Likely contributing to symptoms of lightheadedness, weakness BP improved to 162/63 after being given missed doses of lisinopril, amlodipine, carvedilol and Imdur Continue home blood pressure medication regimen Blood pressure remained controlled (3) Acute UTI: Plan: UA with 2+ leuk esterase, patient with increased frequency and urgency Given dose of Keflex in ED. Will continue with Rocephin Follow urine culture-negative for any infection Ceftriaxone has been stopped (4) CKD (chronic kidney disease) stage 3, GFR 30-59 ml/min: Plan: Kidney function at baseline. Continue to monitor with daily BMP Hyponatremia is corrected (5) CAD in [place] artery: Plan: Stable. Continue plavix, statin, baby aspirin Follows with cardiology in [place] (6) Carotid stenosis: Plan: H/o carotid ultrasound completed 02/24/21: * Right carotid artery duplex examination indicates evidence of 50-69% stenosis of the internal carotid artery * Left carotid artery duplex examination indicates evidence of 50-69% stenosis of the internal carotid artery Continue statin DVT Ppx: SQ heparin Code status: DNR PCP:[facility] Dispo: Observation med tele Admission and Anticipated Discharge Date Admission Date: June 01, 2021 Subjective 06/02/2021 The patient was seen and examined in medical telemetry unit She has been feeling much better Denies any symptoms She will need to go to rehab 06/03/2021 The patient was seen and examined in medical telemetry unit She remains anxious but denies any other symptoms Blood pressure is controlled Review of Systems Review of Systems: All systems reviewed and are unremarkable except as noted below Physical Exam Physical Exam: Lying in bed without any acute distress Constitutional: + thin; not ill appearing Eyes: PERRL, conjunctivae normal, anicteric sclerae ENMT: external ear and nose normal, oropharynx normal Neck: trachea midline, no thyromegaly Respiratory: normal respiratory effort, lungs clear to auscultation Cardiovascular: Rate/Rhythm: regular rate and regular rhythm; not tachycardic Heart Sounds: normal S1, normal S2 and + murmur (2/6 ESM over precordium) Gastrointestinal (Abdomen): Inspection/Auscultation: normal bowel sounds; abdomen not distended Percussion/Palpation: abdomen soft; abdomen nontender Musculoskeletal: No acute arthritis in any joint Neurologic: Very anxious but otherwise alert, awake and oriented x3 Lymphatic: no cervical or axillary lymphadenopathy Results & Data Results & Data ([facility]) Vital Signs (Past 12 Hours) Vital Signs Temp Pulse Pulse Resp BP Pulse Ox 06/04/21 15:30 36.4 C L 60 16 156/63 H 96 06/04/21 12:16 36.6 C 53 L 18 100/54 L 93 06/04/21 09:00 72 06/04/21 07:10 37.0 C 63 20 133/74 97 (1) Carotid stenosis Laterality: bilateral Qualified Code(s): I65.23 - Occlusion and stenosis of bilateral carotid arteries
--- NOTE | 2021-06-04 16:54 | Hospitalist Progress Note ---
Date of Service June 04, 2021 Assessment & Plan (1) Generalized weakness: Plan: This is an 89yo F with a PMH of CAD, NSTEMI s/p SAM to 2nd diagonal branch, HLD, HTN, carotid artery stenosis, CKD stage III, renal artery stenosis, glaucoma, PVD and hyponatremia who presents with continued lightheadedness and generalized weakness. Recently admitted to our service from 05/27-05/31 for hyponatremia and hypertensive urgency Hyponatremia improved from 125 to 132 with holding hctz, bumex Clonidine thought to be contributing to lightheadedness Bumex and clonidine discontinued at time of discharge on 05/31 Returns today with lightheadedness, weakness in setting of UTI, hypertensive urgency No evidence of UTI Has had PT and OT evaluation and recommended rehab Has had a brief episode of lightheadedness today which resolved subsequently Generalized anxiety disorder PCP wanted to have started her on some medication to control anxiety and depression Lexapro 10 mg has been prescribed since yesterday 2021-06-03 (2) Hypertensive urgency: Plan: BP 213/79 - did not take any antihypertensives with morning Renal ultrasound completed on 05/24/2021 showing right-sided possible high-grade greater than 60% stenosis of the renal artery, no stenosis on the left Likely contributing to symptoms of lightheadedness, weakness BP improved to 162/63 after being given missed doses of lisinopril, amlodipine, carvedilol and Imdur Continue home blood pressure medication regimen Blood pressure seems to be fluctuating with low level after morning medications for blood pressure Hydrochlorothiazide 12.5 mg has been restarted and Bumex discontinued We will change the timing of amlodipine in the evening Continue current medications for control of blood pressure (3) Acute UTI: Plan: UTI has been ruled out UA with 2+ leuk esterase, patient with increased frequency and urgency Given dose of Keflex in ED. Will continue with Rocephin Follow urine culture-negative for any infection Ceftriaxone has been stopped (4) CKD (chronic kidney disease) stage 3, GFR 30-59 ml/min: Plan: Kidney function at baseline. Continue to monitor with daily BMP Hyponatremia Remains mildly hyponatremic at 131 as of 2021-06-04 Was advised to have little extra salt in diet (5) CAD in [place] artery: Plan: Stable. Continue plavix, statin, baby aspirin Follows with cardiology in [place] (6) Carotid stenosis: Plan: H/o carotid ultrasound completed 02/24/21: * Right carotid artery duplex examination indicates evidence of 50-69% stenosis of the internal carotid artery * Left carotid artery duplex examination indicates evidence of 50-69% stenosis of the internal carotid artery Continue statin DVT Ppx: SQ heparin Code status: DNR PCP:[facility] Dispo: Admitted to [facility] telemetry Awaiting transfer to [facility] on Monday Admission and Anticipated Discharge Date Admission Date: June 01, 2021 Subjective 06/02/2021 The patient was seen and examined in medical telemetry unit She has been feeling much better Denies any symptoms She will need to go to rehab 06/03/2021 The patient was seen and examined in medical telemetry unit She remains anxious but denies any other symptoms Blood pressure is controlled 06/04/2021 The patient was seen and examined in medical telemetry unit She was noted to have weakness and more tiredness early this morning Her blood pressure was low at systolic 100 after receiving morning blood pressure medications During my second visit to her she was feeling a lot better Review of Systems Review of Systems: Systems reviewed and are unremarkable except as noted below Psychiatric: Generalized anxiety Physical Exam Physical Exam: Lying in bed without any acute distress Constitutional: + ill appearing and + thin Eyes: PERRL, conjunctivae normal, anicteric sclerae ENMT: external ear and nose normal, oropharynx normal Neck: trachea midline, no thyromegaly Respiratory: normal respiratory effort, lungs clear to auscultation Cardiovascular: Rate/Rhythm: regular rate and regular rhythm; not tachycardic Heart Sounds: normal S1, normal S2 and + murmur (2/6 ESM over precordium) Gastrointestinal (Abdomen): Inspection/Auscultation: normal bowel sounds; abdomen not distended Percussion/Palpation: abdomen soft; abdomen nontender Musculoskeletal: No acute arthritis in any joint Neurologic: Alert, awake and oriented x3. Psychiatric: Mood: + anxious mood Lymphatic: no cervical or axillary lymphadenopathy Results & Data Results & Data ([facility]) Vital Signs (Past 12 Hours) Vital Signs Temp Pulse Pulse Resp BP Pulse Ox 06/04/21 15:30 36.4 C L 60 16 156/63 H 96 06/04/21 12:16 36.6 C 53 L 18 100/54 L 93 06/04/21 09:00 72 06/04/21 07:10 37.0 C 63 20 133/74 97 Medications Administered Current Inpatient Medications Acetaminophen (Acetaminophen 325 Mg Tab) 650 mg PO Q4H PRN PRN Reason: Pain or Fever Stop: 07/01/21 16:49 Amlodipine Besylate (Amlodipine Besylate 5 Mg Tab) 5 mg PO QPM [facility] Stop: 07/04/21 20:59 Ascorbic Acid (Ascorbic Acid 500 Mg Tab) 250 mg PO DAILY [facility] Stop: 07/02/21 08:59 Last Admin: 06/04/21 08:33 Dose: 250 mg Documented by: Atorvastatin Calcium (Atorvastatin 40 Mg Tab) 80 mg PO DAILY [facility] Stop: 07/02/21 08:59 Last Admin: 06/04/21 08:33 Dose: 80 mg Documented by: Brimonidine/Timolol (Brimonidine Tartrate/Timolol) 1 drops OP BID [facility] Stop: 07/01/21 20:59 Last Admin: 06/04/21 08:29 Dose: 1 drops Documented by: Brinzolamide (Brinzolamide (Azopt) Ops 10 Ml Btl) 1 drops OPB BID [facility] Stop: 07/01/21 20:59 Last Admin: 06/04/21 08:29 Dose: 1 drops Documented by: Carvedilol (Carvedilol 3.125 Mg Tab) 3.125 mg PO BID [facility] Stop: 07/03/21 05:59 Last Admin: 06/04/21 08:29 Dose: 3.125 mg Documented by: Clopidogrel Bisulfate (Clopidogrel Bisulfate 75 Mg Tab) 75 mg PO QAM [facility] Stop: 07/02/21 08:59 Last Admin: 06/04/21 08:33 Dose: 75 mg Documented by: Escitalopram Oxalate (Escitalopram Oxalate 10 Mg Tab) 10 mg PO QAM [facility] Stop: 07/03/21 12:59 Last Admin: 06/04/21 08:34 Dose: 10 mg Documented by: Ferrous Sulfate (Ferrous Sulfate 325 Mg Tab) 325 mg PO DAILY [facility] Stop: 07/02/21 08:59 Last Admin: 06/04/21 08:34 Dose: 325 mg Documented by: Heparin Sodium (Porcine) (Heparin Sod 5,000 Unit/0.5 Ml Vial) 5,000 units SQ Q12 [facility] Stop: 07/01/21 20:59 Last Admin: 06/04/21 08:34 Dose: 5,000 units Documented by: Hydrochlorothiazide (Hydrochlorothiazide 25 Mg Tab) 12.5 mg PO DAILY [facility] Stop: 07/02/21 08:59 Last Admin: 06/03/21 08:51 Dose: 12.5 mg Documented by: Isosorbide Mononitrate (Isosorbide [place] Extended Rel 30 Mg Tabcr) 30 mg PO QAM [facility] Stop: 07/02/21 08:59 Last Admin: 06/04/21 08:33 Dose: 30 mg Documented by: Lisinopril (Lisinopril 20 Mg Tab) 20 mg PO BID [facility] Stop: 07/03/21 05:59 Last Admin: 06/04/21 08:32 Dose: 20 mg Documented by: Multivitamins/Minerals (Cerovite Adv Formula Tab) 1 tab PO DAILY [facility] Stop: 07/02/21 08:59 Last Admin: 06/04/21 08:33 Dose: 1 tab Documented by: Polyethylene Glycol (Polyethylene (Miralax) 17 Gm Pack) 17 gm PO DAILY PRN PRN Reason: Constipation Stop: 07/01/21 16:49 Psyllium Hydrophilic Mucilloid (Psyllium 58.6% Powder Packet) 1 pkt PO QAM [facility] Stop: 07/02/21 08:59 Last Admin: 06/04/21 08:34 Dose: 1 pkt Documented by: (1) Carotid stenosis Laterality: bilateral Qualified Code(s): I65.23 - Occlusion and stenosis of bilateral carotid arteries
[2021-06-04] MEDS: amLODIPine BESYLATE 5 MG TAB PO SCH (20:16)
[2021-06-05] MEDS: BRINZOLAMIDE (AZOPT) OPS 10 ML BTL OPB SCH ×2 (08:08→20:15)
[2021-06-05] MEDS: PSYLLIUM 58.6% POWDER PACKET PO SCH (08:09)
[2021-06-05] MEDS: BRIMONIDINE TARTRATE/TIMOLOL OP SCH ×2 (08:09→20:15)
[2021-06-05] MEDS: lisinopril 20 MG TAB PO SCH ×2 (08:10→20:15)
[2021-06-05] MEDS: ESCITALOPRAM OXALATE 10 MG TAB PO SCH (08:10)
[2021-06-05] MEDS: FERROUS SULFATE 325 MG TAB PO SCH (08:10)
[2021-06-05] MEDS: ISOSORBIDE MONO EXTENDED REL 30 MG TABCR PO SCH (08:10)
[2021-06-05] MEDS: ATORVASTATIN 40 MG TAB PO SCH (08:10)
[2021-06-05] MEDS: CEROVITE ADV FORMULA TAB PO SCH (08:10)
[2021-06-05] MEDS: ASCORBIC ACID 500 MG TAB PO SCH (08:11)
[2021-06-05] MEDS: carvediloL 3.125 MG TAB PO SCH ×2 (08:11→20:15)
[2021-06-05] MEDS: CLOPIDOGREL BISULFATE 75 MG TAB PO SCH (08:11)
[2021-06-05] MEDS: hydroCHLOROthiazide 25 MG TAB PO SCH (08:12)
[2021-06-05] MEDS: HEPARIN SOD 5,000 UNIT/0.5 ML VIAL SQ SCH ×2 (08:13→20:16)
[2021-06-05 09:07] LABS: Hematocrit (blood only) 34.1 % (37-47); Hemoglobin 11.8 g/dL (12.0-16.0); Mean Corpuscular Hemoglobin 32.2 pg (25-34); Mean Corpuscular Hgb Conc 34.6 g/dL (32-36); Mean Corpuscular Volume 93.2 fL (80-100); Mean Platelet Volume 9.3 fL (7.4-10.4); Platelet Count 267 K/uL (130-400); RDW Coefficient of Variation 13.2 % (11.5-14.5); RDW Standard Deviation 44.7 fL (36.4-46.3); Red Blood Count 3.66 M/uL (4.2-5.4); White Blood Count 7.06 K/uL (4.8-10.8)
[2021-06-05 10:02] LABS: BUN Creatinine Ratio 19.6 (10-20); Calcium 9.1 mg/dl (8.5-10.1); Creatinine Clr Calc Pharmacy 36.1 ml/min; Est GFR (Non-African American) 76.8 ml/min; Potassium 3.6 mmol/L (3.5-5.1)
[2021-06-05] MEDS ORDERED: SODIUM CHLORIDE 0.9% 500 ML IV SCH (11:00)
--- NOTE | 2021-06-05 15:23 | Hospitalist Progress Note ---
Date of Service June 05, 2021 Assessment & Plan (1) Hyponatremia: Plan: Related to HCTZ use. Orthostatics are positive. Received 500 cc of normal saline today with improvement of sodium to 125. Patient is asymptomatic. Continue eating and drinking to thirst and repeat sodium in a.m. Avoid diuretics at this point. (2) Hypertensive urgency: Plan: Around goal, continue current medications. Avoid Bumex and discontinue HCTZ altogether. If patient needs a diuretic in the future would give her a loop diuretic as opposed with thiazide given her history. (3) CKD (chronic kidney disease) stage 3, GFR 30-59 ml/min: Plan: Kidney function at baseline. (4) CAD in [place] artery: Plan: Chronic, stable, continue current medical therapy. (5) DVT prophylaxis: Plan: Heparin DNR Dispo-possible transfer to on Monday. Emeli Ware DO [facility] and Anticipated Discharge Date Admission Date: June 01, 2021 Subjective 89-year-old female readmitted with lightheadedness after acute hyponatremia secondary to diuretic use. She was given hydrochlorothiazide on 06/02 and 06/03. Repeat sodium was 123 today and orthostatics were positive. Patient states that when her blood pressure is around 120 systolic she feels lightheaded. Patient and her daughter note a period of delirium today where she was hallucinating about 2 people in her room. She was able to reorient quickly after this but was concerned No evidence of UTI at this point or other reversible causes Patient is otherwise feeling well at this point, tolerating p.o. Review of Systems Review of Systems: All systems were reviewed and negative except as indicated in HPI above. Physical Exam Physical Exam: CONSTITUTIONAL: thin, vitals as above, generally well- appearing EYES: normal conjunctivae, no scleral icterus ENT: external ear and nose normal, MMM RESPIRATORY: clear to auscultation bilaterally, no crackles, rales or wheezes, normal respiratory effort CARDIOVASCULAR: regular rate and rhythm, S1 and 2 heard without murmurs, gallops or rubs, no JVD, no peripheral edema GASTROINTESTINAL: soft, nontender, nondistended. MUSCULOSKELETAL: strength 5/5 throughout, head is normocephalic and atraumatic SKIN: warm and dry NEUROLOGIC: CN 2-12 grossly intact, no sensory deficit, normal cognition, normal speech, no tremor PSYCHIATRIC: alert cooperative and oriented to person, place and time. Euthymic mood, makes good eye contact, language grossly intact, recent and remote memory grossly intact. Results & Data Results & Data ([facility]) Vital Signs (Past 12 Hours) Vital Signs Temp Pulse Resp BP BP Pulse Ox 06/05/21 11:22 36.5 C 64 20 172/88 H 98 06/05/21 07:45 36.5 C 68 20 154/66 H 97 06/05/21 04:23 37.0 C 62 20 155/68 H 95 Laboratory Results Short CBC 06/05/21 Range/Units 08:55 WBC 7.06 (4.8-10.8) K/uL Hgb 11.8 L (12.0-16.0) g/dL Hct 34.1 L (37-47) % Plt Count 267 (130-400) K/uL BMP 06/05/21 08:55 Sodium 123 L Potassium 3.6 Chloride 91 L Carbon Dioxide 26 BUN 14 Creatinine 0.70 Glucose 157 H Calcium 9.1 Medications Administered Current Inpatient Medications Acetaminophen (Acetaminophen 325 Mg Tab) 650 mg PO Q4H PRN PRN Reason: Pain or Fever Stop: 07/01/21 16:49 Amlodipine Besylate (Amlodipine Besylate 5 Mg Tab) 5 mg PO QPM [facility] Stop: 07/04/21 20:59 Last Admin: 06/05/21 20:15 Dose: 5 mg Documented by: Ascorbic Acid (Ascorbic Acid 500 Mg Tab) 250 mg PO DAILY JUAN JOSÉ Stop: 07/02/21 08:59 Last Admin: 06/05/21 08:11 Dose: 250 mg Documented by: Atorvastatin Calcium (Atorvastatin 40 Mg Tab) 80 mg PO DAILY JUAN JOSÉ Stop: 07/02/21 08:59 Last Admin: 06/05/21 08:10 Dose: 80 mg Documented by: Brimonidine/Timolol (Brimonidine Tartrate/Timolol) 1 drops OP BID JUAN JOS[facility] Stop: 07/01/21 20:59 Last Admin: 06/05/21 20:15 Dose: 1 drops Documented by: Brinzolamide (Brinzolamide (Azopt) Ops 10 Ml Btl) 1 drops OPB BID [facility]UAN JOS[facility] Stop: 07/01/21 20:59 Last Admin: 06/05/21 20:15 Dose: 1 drops Documented by: Carvedilol (Carvedilol 3.125 Mg Tab) 3.125 mg PO BID [facility] Stop: 07/03/21 05:59 Last Admin: 06/05/21 20:15 Dose: 3.125 mg Documented by: Clopidogrel Bisulfate (Clopidogrel Bisulfate 75 Mg Tab) 75 mg PO QAM [facility] Stop: 07/02/21 08:59 Last Admin: 06/05/21 08:11 Dose: 75 mg Documented by: Escitalopram Oxalate (Escitalopram Oxalate 10 Mg Tab) 10 mg PO QAM [facility] Stop: 07/03/21 12:59 Last Admin: 06/05/21 08:10 Dose: 10 mg Documented by: Ferrous Sulfate (Ferrous Sulfate 325 Mg Tab) 325 mg PO DAILY [facility] Stop: 07/02/21 08:59 Last Admin: 06/05/21 08:10 Dose: 325 mg Documented by: Heparin Sodium (Porcine) (Heparin Sod 5,000 Unit/0.5 Ml Vial) 5,000 units SQ Q12 [facility] Stop: 07/01/21 20:59 Last Admin: 06/05/21 20:16 Dose: 5,000 units Documented by: Isosorbide Mononitrate (Isosorbide [place] Extended Rel 30 Mg Tabcr) [facility] Stop: 07/02/21 08:59 Last Admin: 06/05/21 08:10 Dose: 30 mg Documented by: Lisinopril (Lisinopril 20 Mg Tab) 20 mg PO BID [facility] Stop: 07/03/21 05:59 Last Admin: 06/05/21 20:15 Dose: 20 mg Documented by: Multivitamins/Minerals (Cerovite Adv Formula Tab) 1 tab PO DAILY [facility] Stop: 07/02/21 08:59 Last Admin: 06/05/21 08:10 Dose: 1 tab Documented by: Polyethylene Glycol (Polyethylene (Miralax) 17 Gm Pack) 17 gm PO DAILY PRN PRN Reason: Constipation Stop: 07/01/21 16:49 Psyllium Hydrophilic Mucilloid (Psyllium 58.6% Powder Packet) 1 pkt PO QAM [facility] Stop: 07/02/21 08:59 Last Admin: 06/05/21 08:09 Dose: 1 pkt Documented by:
[2021-06-05 17:26] LABS: BUN Creatinine Ratio 24.6 (10-20); Calcium 8.5 mg/dl (8.5-10.1); Est GFR (African American) 76.9 ml/min; Est GFR (Non-African American) 66.4 ml/min; Potassium 4.1 mmol/L (3.5-5.1)
[2021-06-05] MEDS: amLODIPine BESYLATE 5 MG TAB PO SCH (20:15)
[2021-06-06] MEDS: ESCITALOPRAM OXALATE 10 MG TAB PO SCH (08:32)
[2021-06-06] MEDS: carvediloL 3.125 MG TAB PO SCH ×2 (08:33→20:30)
[2021-06-06] MEDS: CEROVITE ADV FORMULA TAB PO SCH (08:33)
[2021-06-06] MEDS: ISOSORBIDE MONO EXTENDED REL 30 MG TABCR PO SCH (08:33)
[2021-06-06] MEDS: ATORVASTATIN 40 MG TAB PO SCH (08:34)
[2021-06-06] MEDS: CLOPIDOGREL BISULFATE 75 MG TAB PO SCH (08:34)
[2021-06-06] MEDS: FERROUS SULFATE 325 MG TAB PO SCH (08:34)
[2021-06-06] MEDS: ASCORBIC ACID 500 MG TAB PO SCH (08:35)
[2021-06-06] MEDS: PSYLLIUM 58.6% POWDER PACKET PO SCH (08:35)
[2021-06-06] MEDS: lisinopril 20 MG TAB PO SCH ×2 (08:36→20:31)
[2021-06-06] MEDS: BRINZOLAMIDE (AZOPT) OPS 10 ML BTL OPB SCH ×2 (08:36→20:29)
[2021-06-06] MEDS: BRIMONIDINE TARTRATE/TIMOLOL OP SCH ×2 (08:37→20:29)
[2021-06-06] MEDS: HEPARIN SOD 5,000 UNIT/0.5 ML VIAL SQ SCH ×2 (08:37→20:31)
[2021-06-06 08:47] LABS: BUN Creatinine Ratio 24.9 (10-20); Creatinine Clr Calc Pharmacy 48.6 ml/min; Est GFR (African American) 96.4 ml/min; Est GFR (Non-African American) 83.2 ml/min; Potassium 3.7 mmol/L (3.5-5.1)
--- NOTE | 2021-06-06 10:27 | Hospitalist Progress Note ---
Date of Service June 06, 2021 Assessment & Plan (1) Hyponatremia: Plan: Related to HCTZ use. Orthostatics are positive. Sodium improved from 125 to 128 overnight allowing her to eat and drink to thirst. Cont to avoid diuretics and trend BMP in am. Expected to continue to rise off diuretics. (2) Hypertensive urgency: Plan: Around goal, continue current medications. Avoid Bumex and discontinue HCTZ altogether. If patient needs a diuretic in the future would give her a loop diuretic as opposed with thiazide given her history. (3) CKD (chronic kidney disease) stage 3, GFR 30-59 ml/min: Plan: Kidney function at baseline. 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 (5) DVT prophylaxis: Plan: Heparin DNR Dispo-possible transfer to SNF early next week. Need sodium to be closer to 135 and for her to feel well prior to considering this. Emeli Ware DO [facility] Ad[facility] and Anticipated Discharge Date Admission Date: June 01, 2021 Subjective 89-year-old female readmitted with lightheadedness after acute hyponatremia secondary to diuretic use. Delirium present all day today. She is denying pain, but ROS is otherwise difficult. Thinks she is in [place] and has been wandering halls per nurses. Review of Systems Review of Systems: cannot obtain 2/2 delirium Physical Exam Physical Exam: CONSTITUTIONAL: thin, vitals as above, NAD EYES: normal conjunctivae, no scleral icterus ENT: external ear and nose normal, MMM RESPIRATORY: clear to auscultation bilaterally, no crackles, rales or wheezes, normal respiratory effort CARDIOVASCULAR: regular rate and rhythm, S1 and 2 heard without murmurs, gallops or rubs, no JVD, no peripheral edema GASTROINTESTINAL: soft, nontender, nondistended. MUSCULOSKELETAL: generalized weakness, no gross focal deficits. head is normocephalic and atraumatic SKIN: warm and dry NEUROLOGIC: CN 2-12 grossly intact, normal cognition PSYCHIATRIC: Confused and irritated in response to questioning. Disoriented. Results & Data Results & Data ([facility]) Vital Signs (Past 12 Hours) Vital Signs Temp Pulse Pulse Resp BP Pulse Ox 06/06/21 07:06 36.8 C 70 20 160/73 H 96 06/06/21 03:45 36.8 C 65 20 165/70 H 96 06/05/21 23:15 36.4 C L 64 20 165/65 H 97 06/05/21 23:12 61 Laboratory Results BMP 06/05/21 06/06/21 16:54 07:44 Sodium 125 L 128 L Potassium 4.1 3.7 Chloride 95 L 98 Carbon Dioxide 22 24 BUN 20 H 14 Creatinine 0.79 0.55 L Glucose 108 H 92 Calcium 8.5 9.0 Medications Administered Current Inpatient Medications Acetaminophen (Acetaminophen 325 Mg Tab) 650 mg PO Q4H PRN PRN Reason: Pain or Fever Stop: 07/01/21 16:49 Amlodipine Besylate (Amlodipine Besylate 5 Mg Tab) 5 mg PO QPM [facility]OS[facility] Stop: 07/04/21 20:59 Last Admin: 06/05/21 20:15 Dose: 5 mg Documented by: Ascorbic Acid (Ascorbic Acid 500 Mg Tab) 250 mg PO DAILY [facility] JOS[facility] Stop: 07/02/21 08:59 Last Admin: 06/06/21 08:35 Dose: 250 mg Documented by: Atorvastatin Calcium (Atorvastatin 40 Mg Tab) 80 mg PO DAILY JUAN JOS[facility] Stop: 07/02/21 08:59 Last Admin: 06/06/21 08:34 Dose: 80 mg Documented by: Brimonidine/Timolol (Brimonidine Tartrate/Timolol) 1 drops OP BID [facility]UAN JOS[facility] Stop: 07/01/21 20:59 Last Admin: 06/06/21 08:37 Dose: 1 drops Documented by: Brinzolamide (Brinzolamide (Azopt) Ops 10 Ml Btl) 1 drops OPB BID [facility] Stop: 07/01/21 20:59 Last Admin: 06/06/21 08:36 Dose: 1 drops Documented by: Carvedilol (Carvedilol 3.125 Mg Tab) 3.125 mg PO BID [facility] Stop: 07/03/21 05:59 Last Admin: 06/06/21 08:33 Dose: 3.125 mg Documented by: Clopidogrel Bisulfate (Clopidogrel Bisulfate 75 Mg Tab) 75 mg PO QAM [facility] Stop: 07/02/21 08:59 Last Admin: 06/06/21 08:34 Dose: 75 mg Documented by: Escitalopram Oxalate (Escitalopram Oxalate 10 Mg Tab) 10 mg PO QAM [facility] Stop: 07/03/21 12:59 Last Admin: 06/06/21 08:32 Dose: 10 mg Documented by: Ferrous Sulfate (Ferrous Sulfate 325 Mg Tab) 325 mg PO DAILY [facility] Stop: 07/02/21 08:59 Last Admin: 06/06/21 08:34 Dose: 325 mg Documented by: Heparin Sodium (Porcine) (Heparin Sod 5,000 Unit/0.5 Ml Vial) 5,000 units SQ Q12 [facility] Stop: 07/01/21 20:59 Last Admin: 06/06/21 08:37 Dose: 5,000 units Documented by: Isosorbide Mononitrate (Isosorbide [place] Extended Rel 30 Mg Tabcr) 30 mg PO QAM [facility] Stop: 07/02/21 08:59 Last Admin: 06/06/21 08:33 Dose: 30 mg Documented by: Lisinopril (Lisinopril 20 Mg Tab) 20 mg PO BID [facility] Stop: 07/03/21 05:59 Last Admin: 06/06/21 08:36 Dose: 20 mg Documented by: Multivitamins/Minerals (Cerovite Adv Formula Tab) 1 tab PO DAILY [facility]OS[facility] Stop: 07/02/21 08:59 Last Admin: 06/06/21 08:33 Dose: 1 tab Documented by: Polyethylene Glycol (Polyethylene (Miralax) 17 Gm Pack) 17 gm PO DAILY PRN PRN Reason: Constipation Stop: 07/01/21 16:49 Psyllium Hydrophilic Mucilloid (Psyllium 58.6% Powder Packet) 1 pkt PO QAM [facility] Stop: 07/02/21 08:59 Last Admin: 06/06/21 08:35 Dose: 1 pkt Documented by:
[2021-06-06] MEDS: amLODIPine BESYLATE 5 MG TAB PO SCH (20:28)
[2021-06-07 08:34] LABS: BUN Creatinine Ratio 26.2 (10-20); Calcium 8.9 mg/dl (8.5-10.1); Creatinine Clr Calc Pharmacy 46.6 ml/min; Est GFR (Non-African American) 83.7 ml/min; Potassium 3.8 mmol/L (3.5-5.1)
[2021-06-07] MEDS: CEROVITE ADV FORMULA TAB PO SCH (09:13)
[2021-06-07] MEDS: FERROUS SULFATE 325 MG TAB PO SCH (09:13)
[2021-06-07] MEDS: ASCORBIC ACID 500 MG TAB PO SCH (09:13)
[2021-06-07] MEDS: ATORVASTATIN 40 MG TAB PO SCH (09:13)
[2021-06-07] MEDS: PSYLLIUM 58.6% POWDER PACKET PO SCH (09:13)
[2021-06-07] MEDS: lisinopril 20 MG TAB PO SCH ×2 (09:13→20:10)
[2021-06-07] MEDS: carvediloL 3.125 MG TAB PO SCH ×2 (09:14→20:09)
[2021-06-07] MEDS: CLOPIDOGREL BISULFATE 75 MG TAB PO SCH (09:14)
[2021-06-07] MEDS: ISOSORBIDE MONO EXTENDED REL 30 MG TABCR PO SCH (09:14)
[2021-06-07] MEDS: ESCITALOPRAM OXALATE 10 MG TAB PO SCH (09:14)
[2021-06-07] MEDS: BRINZOLAMIDE (AZOPT) OPS 10 ML BTL OPB SCH ×2 (09:15→20:07)
[2021-06-07] MEDS: BRIMONIDINE TARTRATE/TIMOLOL OP SCH ×2 (09:16→20:07)
[2021-06-07] MEDS: HEPARIN SOD 5,000 UNIT/0.5 ML VIAL SQ SCH ×2 (09:17→20:10)
--- NOTE | 2021-06-07 10:57 | Hospitalist Progress Note ---
Date of Service June 07, 2021 Assessment & Plan (1) Hyponatremia: Plan: Related to HCTZ use. Orthostatics are positive. Sodium stayed 128 this morning. Orthostatics still positive overnight. Start IVF wtih NSS now. Cont to avoid diuretics and trend BMP this afternoon. Expected to continue to rise off diuretics. Urine studies pending. (2) Hypertensive urgency: Plan: BP around goal, continue current medications. Avoid Bumex and discontinue HCTZ altogether. If patient needs a diuretic in the future would give her a loop diuretic as opposed with thiazide given her history. (3) CKD (chronic kidney disease) stage 3, GFR 30-59 ml/min: Plan: Kidney function remains at baseline. 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 (5) DVT prophylaxis: Plan: Heparin DNR Dispo-possible transfer to SNF in 1-2 days. Need sodium to be closer to 135 and for her to feel well prior to considering this. Emeli Ware DO [facility] Admission and Anticipated Discharge Date Admission Date: June 04, 2021 Subjective 89-year-old female readmitted with lightheadedness after acute hyponatremia secondary to diuretic use. Delirium appears to have resolved today She is more pleasant and oriented. Denies pain or other symptoms at this time. Review of Systems Review of Systems: All systems were reviewed and negative except as indicated in HPI above. Physical Exam Physical Exam: CONSTITUTIONAL: thin, vitals as above, NAD EYES: normal conjunctivae, no scleral icterus ENT: external ear and nose normal, MMM RESPIRATORY: clear to auscultation bilaterally, no crackles, rales or wheezes, normal respiratory effort CARDIOVASCULAR: regular rate and rhythm, S1 and 2 heard without murmurs, gallops or rubs, no JVD, no peripheral edema GASTROINTESTINAL: soft, nontender, nondistended. MUSCULOSKELETAL: generalized weakness, no gross focal deficits. head is normocephalic and atraumatic SKIN: warm and dry NEUROLOGIC: CN 2-12 grossly intact, normal cognition PSYCHIATRIC: Oriented to person, place and time and she is calm and cooperative today. Results & Data Results & Data ([facility]) Vital Signs (Past 12 Hours) Vital Signs Temp Pulse Pulse Resp BP BP Pulse Ox 06/07/21 07:41 36.6 C 65 20 144/73 H 98 06/07/21 03:48 36.7 C 16 97 06/06/21 23:11 36.5 C 63 62 20 161/77 H 95 Laboratory Results BMP 06/07/21 07:41 Sodium 128 L Potassium 3.8 Chloride 97 L Carbon Dioxide 23 BUN 14 Creatinine 0.54 L Glucose 88 Calcium 8.9 Medications Administered Current Inpatient Medications Acetaminophen (Acetaminophen 325 Mg Tab) 650 mg PO Q4H PRN PRN Reason: Pain or Fever Stop: 07/01/21 16:49 Amlodipine Besylate (Amlodipine Besylate 5 Mg Tab) 5 mg PO QPM [facility] Stop: 07/04/21 20:59 Last Admin: 06/06/21 20:28 Dose: 5 mg Documented by: Ascorbic Acid (Ascorbic Acid 500 Mg Tab) 250 mg PO DAILY [facility] Stop: 07/02/21 08:59 Last Admin: 06/07/21 09:13 Dose: 250 mg Documented by: Atorvastatin Calcium (Atorvastatin 40 Mg Tab) 80 mg PO DAILY [facility] JOS[facility] Stop: 07/02/21 08:59 Last Admin: 06/07/21 09:13 Dose: 80 mg Documented by: Brimonidine/Timolol (Brimonidine Tartrate/Timolol) 1 drops OP BID [facility]OS[facility] Stop: 07/01/21 20:59 Last Admin: 06/07/21 09:16 Dose: 1 drops Documented by: Brinzolamide (Brinzolamide (Azopt) Ops 10 Ml Btl) 1 drops OPB BID [facility] Stop: 07/01/21 20:59 Last Admin: 06/07/21 09:15 Dose: 1 drops Documented by: Carvedilol (Carvedilol 3.125 Mg Tab) 3.125 mg PO BID [facility] Stop: 07/03/21 05:59 Last Admin: 06/07/21 09:14 Dose: 3.125 mg Documented by: Clopidogrel Bisulfate (Clopidogrel Bisulfate 75 Mg Tab) 75 mg PO QAM [facility] Stop: 07/02/21 08:59 Last Admin: 06/07/21 09:14 Dose: 75 mg Documented by: Escitalopram Oxalate (Escitalopram Oxalate 10 Mg Tab) 10 mg PO QAM [facility] Stop: 07/03/21 12:59 Last Admin: 06/07/21 09:14 Dose: 10 mg Documented by: Ferrous Sulfate (Ferrous Sulfate 325 Mg Tab) 325 mg PO DAILY [facility]UAN JOSÉ Stop: 07/02/21 08:59 Last Admin: 06/07/21 09:13 Dose: 325 mg Documented by: Heparin Sodium (Porcine) (Heparin Sod 5,000 Unit/0.5 Ml Vial) 5,000 units SQ Q12 [facility] Stop: 07/01/21 20:59 Last Admin: 06/07/21 09:17 Dose: 5,000 units Documented by: Sodium Chloride (Nss 1000ml) 1,000 mls @ 125 mls/hr IV .Q8H [facility] Stop: 07/07/21 10:44 Isosorbide Mononitrate (Isosorbide [place] Extended Rel 30 Mg Tabcr) 30 mg PO QAM [facility] Stop: 07/02/21 08:59 Last Admin: 06/07/21 09:14 Dose: 30 mg Documented by: Lisinopril (Lisinopril 20 Mg Tab) 20 mg PO BID [facility] Stop: 07/03/21 05:59 Last Admin: 06/07/21 09:13 Dose: 20 mg Documented by: Multivitamins/Minerals (Cerovite Adv Formula Tab) 1 tab PO DAILY [facility]OS[facility] Stop: 07/02/21 08:59 Last Admin: 06/07/21 09:13 Dose: 1 tab Documented by: Polyethylene Glycol (Polyethylene (Miralax) 17 Gm Pack) 17 gm PO DAILY PRN PRN Reason: Constipation Stop: 07/01/21 16:49 Psyllium Hydrophilic Mucilloid (Psyllium 58.6% Powder Packet) 1 pkt PO QAM [facility] Stop: 07/02/21 08:59 Last Admin: 06/07/21 09:13 Dose: 1 pkt Documented by:
[2021-06-07] MEDS: SODIUM CHLORIDE 0.9% 1000ML 1,000 ML IV SCH ×2 (11:16→20:11)
--- NOTE | 2021-06-07 17:15 | Hospitalist Progress Note ---
Date of Service June 07, 2021 Assessment & Plan (1) Hyponatremia: Plan: Thought to be related to HCTZ use. Possibly some component of feeling delirious yesterday +/-new addition of lexapro to her regimen during this admission. Orthostatics are positive. Sodium stayed 128 this morning. Start IVF wtih NSS now. Cont to avoid diuretics and trend BMP this afternoon. Expected to continue to rise off diuretics and with rehydration efforts. Discussed Lexapro further with she and daughter at bedside and we decided to stop the Lexapro. (2) Hypertensive urgency: Plan: BP around goal, continue current medications. Avoid Bumex and discontinue HCTZ altogether. If patient needs a diuretic in the future would give her a loop diuretic as opposed with thiazide given her history. (3) CKD (chronic kidney disease) stage 3, GFR 30-59 ml/min: Plan: Kidney function remains at baseline. 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 (5) DVT prophylaxis: Plan: Heparin DNR Dispo-to SNF in 1-2 days. Emeli Ware DO [facility] Hospitalist Admission and Anticipated Discharge Date Admission Date: June 04, 2021 Subjective 89-year-old female readmitted with lightheadedness after acute hyponatremia secondary to diuretic use. Delirium appears to have resolved today She is more pleasant and oriented. Denies pain or other symptoms at this time. Review of Systems Review of Systems: All systems were reviewed and negative except as indicated in HPI above. Physical Exam Physical Exam: CONSTITUTIONAL: thin, vitals as above, NAD EYES: normal conjunctivae, no scleral icterus ENT: external ear and nose normal, MMM RESPIRATORY: clear to auscultation bilaterally, no crackles, rales or wheezes, normal respiratory effort CARDIOVASCULAR: regular rate and rhythm, S1 and 2 heard without murmurs, gallops or rubs, no JVD, no peripheral edema GASTROINTESTINAL: soft, nontender, nondistended. MUSCULOSKELETAL: generalized weakness, no gross focal deficits. head is normocephalic and atraumatic SKIN: warm and dry NEUROLOGIC: CN 2-12 grossly intact, normal cognition PSYCHIATRIC: Oriented to person, place and time and she is calm and cooperative today. Results & Data Results [facility]) Vital Signs (Past 12 Hours) Vital Signs Temp Pulse Resp BP BP Pulse Ox 06/07/21 14:58 36.8 C 62 20 114/56 L 97 06/07/21 11:14 36.6 C 64 18 105/62 96 06/07/21 07:41 36.6 C 65 20 144/73 H 98 Laboratory Results BMP 06/07/21 06/07/21 07:41 17:01 Sodium 128 L 128 L Potassium 3.8 4.1 Chloride 97 L 100 Carbon Dioxide 23 25 BUN 14 22 H D Creatinine 0.54 L 1.40 H D Glucose 88 106 H Calcium 8.9 8.4 L Medications Administered Current Inpatient Medications Acetaminophen (Acetaminophen 325 Mg Tab) 650 mg PO Q4H PRN PRN Reason: Pain or Fever Stop: 07/01/21 16:49 Amlodipine Besylate (Amlodipine Besylate 5 Mg Tab) 5 mg PO QPM [facility] Stop: 07/04/21 20:59 Last Admin: 06/07/21 20:09 Dose: 5 mg Documented by: Ascorbic Acid (Ascorbic Acid 500 Mg Tab) 250 mg PO DAILY [facility] Stop: 07/02/21 08:59 Last Admin: 06/07/21 09:13 Dose: 250 mg Documented by: Atorvastatin Calcium (Atorvastatin 40 Mg Tab) 80 mg PO DAILY [facility]OS[facility] Stop: 07/02/21 08:59 Last Admin: 06/07/21 09:13 Dose: 80 mg Documented by: Brimonidine/Timolol (Brimonidine Tartrate/Timolol) 1 drops OP BID [facility]UAN JOS[facility] Stop: 07/01/21 20:59 Last Admin: 06/07/21 20:07 Dose: 1 drops Documented by: Brinzolamide (Brinzolamide (Azopt) Ops 10 Ml Btl) 1 drops OPB BID [facility]OS[facility] Stop: 07/01/21 20:59 Last Admin: 06/07/21 20:07 Dose: 1 drops Documented by: Carvedilol (Carvedilol 3.125 Mg Tab) 3.125 mg PO BID [facility] Stop: 07/03/21 05:59 Last Admin: 06/07/21 20:09 Dose: 3.125 mg Documented by: Clopidogrel Bisulfate (Clopidogrel Bisulfate 75 Mg Tab) 75 mg PO QAM [facility] Stop: 07/02/21 08:59 Last Admin: 06/07/21 09:14 Dose: 75 mg Documented by: Escitalopram Oxalate (Escitalopram Oxalate 10 Mg Tab) 10 mg PO QAM [facility] Stop: 07/03/21 12:59 Last Admin: 06/07/21 09:14 Dose: 10 mg Documented by: Ferrous Sulfate (Ferrous Sulfate 325 Mg Tab) 325 mg PO DAILY [facility] Stop: 07/02/21 08:59 Last Admin: 06/07/21 09:13 Dose: 325 mg Documented by: Heparin Sodium (Porcine) (Heparin Sod 5,000 Unit/0.5 Ml Vial) 5,000 units SQ Q12 [facility] Stop: 07/01/21 20:59 Last Admin: 06/07/21 20:10 Dose: Not Given Documented by: Sodium Chloride (Nss 1000ml) 1,000 mls @ 125 mls/hr IV .Q8H [facility] Stop: 07/07/21 10:44 Last Admin: 06/07/21 20:11 Dose: 125 mls/hr Documented by: Isosorbide Mononitrate (Isosorbide [place] Extended Rel 30 Mg Tabcr) [facility] Stop: 07/02/21 08:59 Last Admin: 06/07/21 09:14 Dose: 30 mg Documented by: Lisinopril (Lisinopril 20 Mg Tab) 20 mg PO BID [facility] Stop: 07/03/21 05:59 Last Admin: 06/07/21 20:10 Dose: 20 mg Documented by: Multivitamins/Minerals (Cerovite Adv Formula Tab) 1 tab PO DAILY [facility] Stop: 07/02/21 08:59 Last Admin: 06/07/21 09:13 Dose: 1 tab Documented by: Polyethylene Glycol (Polyethylene (Miralax) 17 Gm Pack) 17 gm PO DAILY PRN PRN Reason: Constipation Stop: 07/01/21 16:49 Psyllium Hydrophilic Mucilloid (Psyllium 58.6% Powder Packet) 1 pkt PO QAM [facility] Stop: 07/02/21 08:59 Last Admin: 06/07/21 09:13 Dose: 1 pkt Documented by:
[2021-06-07 17:43] LABS: Calcium 8.4 mg/dl (8.5-10.1); Est GFR (African American) 38.5 ml/min; Est GFR (Non-African American) 33.2 ml/min; Potassium 4.1 mmol/L (3.5-5.1)
[2021-06-07] MEDS: amLODIPine BESYLATE 5 MG TAB PO SCH (20:09)
[2021-06-08 01:39] LABS: Creatinine Urine Random 50.2 mg/dl
[2021-06-08] MEDS: SODIUM CHLORIDE 0.9% 1000ML 1,000 ML IV SCH (04:57)
[2021-06-08 07:55] LABS: BUN Creatinine Ratio 34.6 (10-20); Calcium 8.1 mg/dl (8.5-10.1); Creatinine Clr Calc Pharmacy 44.9 ml/min; Est GFR (African American) 95.8 ml/min; Est GFR (Non-African American) 82.7 ml/min; Magnesium 1.8 mg/dl (1.8-2.4); Phosphorus 2.4 mg/dl (2.5-4.9); Potassium 3.5 mmol/L (3.5-5.1)
[2021-06-08] MEDS: ATORVASTATIN 40 MG TAB PO SCH (08:20)
[2021-06-08] MEDS: CLOPIDOGREL BISULFATE 75 MG TAB PO SCH (08:20)
[2021-06-08] MEDS: CEROVITE ADV FORMULA TAB PO SCH (08:20)
[2021-06-08] MEDS: ISOSORBIDE MONO EXTENDED REL 30 MG TABCR PO SCH (08:20)
[2021-06-08] MEDS: ASCORBIC ACID 500 MG TAB PO SCH (08:20)
[2021-06-08] MEDS: BRINZOLAMIDE (AZOPT) OPS 10 ML BTL OPB SCH (08:21)
[2021-06-08] MEDS: carvediloL 3.125 MG TAB PO SCH (08:21)
[2021-06-08] MEDS: PSYLLIUM 58.6% POWDER PACKET PO SCH (08:21)
[2021-06-08] MEDS: BRIMONIDINE TARTRATE/TIMOLOL OP SCH (08:21)
[2021-06-08] MEDS: HEPARIN SOD 5,000 UNIT/0.5 ML VIAL SQ SCH (08:22)
--- NOTE | 2021-06-08 09:54 | Discharge Summary ---
Date of Service June 08, 2021 Admission HPI Per Admitting Provider General Appearance: WD/WN, vitals as above, NAD, sitting up in bed, pleasant, conversing easily Head: normocephalic, atraumatic Eyes: normal inspection, PERRL, conjunctivae normal, anicteric sclerae ENT: external ear and nose normal, oropharynx normal Neck: normal visual inspection, trachea midline, no thyromegaly Respiratory: normal respiratory effort, lungs clear to auscultation, no wheeze, rales, rhonchi. No accessory muscle use Cardiovascular: regular rate, rhythm, no murmur, normal peripheral pulses, no BLE edema. Vessels: no JVD Chest: normal inspection of chest Abdomen/GI: normal bowel sounds, soft, nontender, no hepatosplenomegaly Extremities/Musculoskeletal: no cyanosis or clubbing, extremities motor strength 5/5 Neurologic: PERRL, EOMI, accommodation nl, no face palsy, no dysarthria, CN's II-XI intact bilaterally and moves all extremities Psychiatric: A+Ox3, euthymic affect Skin: no rashes, normal color, warm/dry Admission Exam Per Admitting Provider General Appearance: WD/WN, vitals as above, NAD, sitting up in bed, pleasant, conversing easily Head: normocephalic, atraumatic Eyes: normal inspection, PERRL, conjunctivae normal, anicteric sclerae ENT: external ear and nose normal, oropharynx normal Neck: normal visual inspection, trachea midline, no thyromegaly Respiratory: normal respiratory effort, lungs clear to auscultation, no wheeze, rales, rhonchi. No accessory muscle use Cardiovascular: regular rate, rhythm, no murmur, normal peripheral pulses, no BLE edema. Vessels: no JVD Chest: normal inspection of chest Abdomen/GI: normal bowel sounds, soft, nontender, no hepatosplenomegaly Extremities/Musculoskeletal: no cyanosis or clubbing, extremities motor strength 5/5 Neurologic: PERRL, EOMI, accommodation nl, no face palsy, no dysarthria, CN's II-XI intact bilaterally and moves all extremities Psychiatric: A+Ox3, euthymic affect Skin: no rashes, normal color, warm/dry Principal Diagnosis Hyponatremia Hypertensive Urgency CKD Stage III Acute kidney failure, not POA, resolved. Discharge Exam CONSTITUTIONAL: thin, vitals as above, NAD EYES: normal conjunctivae, no scleral icterus ENT: external ear and nose normal, MMM RESPIRATORY: clear to auscultation bilaterally, no crackles, rales or wheezes, normal respiratory effort CARDIOVASCULAR: regular rate and rhythm, S1 and 2 heard without murmurs, gallops or rubs, no JVD, no peripheral edema GASTROINTESTINAL: soft, nontender, nondistended. MUSCULOSKELETAL: generalized weakness, no gross focal deficits. head is normocephalic and atraumatic SKIN: warm and dry NEUROLOGIC: CN 2-12 grossly intact, normal cognition PSYCHIATRIC: Oriented to person, place and time and she is calm and cooperative today. Discharge Data Allergies Allergy/AdvReac Type Severity Reaction Status Date / Time No Known Allergies Allergy Verified 06/01/21 17:16 Ordered Studies Laboratory Results WBC 7.06 K/uL (4.8-10.8) 06/05/21 08:55 RBC 3.66 M/uL (4.2-5.4) L 06/05/21 08:55 Hgb 11.8 g/dL (12.0-16.0) L 06/05/21 08:55 Hct 34.1 % (37-47) L 06/05/21 08:55 MCV 93.2 fL (80-100) 06/05/21 08:55 MCH 32.2 pg (25-34) 06/05/21 08:55 MCHC 34.6 g/dL (32-36) 06/05/21 08:55 RDW Std Deviation 44.7 fL (36.4-46.3) 06/05/21 08:55 RDW Coeff of [place] 13.2 % (11.5-14.5) 06/05/21 08:55 Plt Count 267 K/uL (130-400) 06/05/21 08:55 MPV 9.3 fL (7.4-10.4) 06/05/21 08:55 Immature Gran % (Auto) 0.2 % 06/01/21 08:03 Neut % (Auto) 65.9 % 06/01/21 08:03 Lymph % (Auto) 23.6 % 06/01/21 08:03 [place] % (Auto) 9.6 % 06/01/21 08:03 Eos % (Auto) 0.5 % 06/01/21 08:03 Baso % (Auto) 0.2 % 06/01/21 08:03 Neut # (Auto) 4.33 K/uL (1.4-6.5) 06/01/21 08:03 Lymph # (Auto) 1.55 K/uL (1.2-3.4) 06/01/21 08:03 M[place] # (Auto) 0.63 K/uL (0.11-0.59) H 06/01/21 08:03 Eos # (Auto) 0.03 K/uL (0-0.5) 06/01/21 08:03 Baso # (Auto) 0.01 K/uL (0-0.2) 06/01/21 08:03 Immature Gran # (Auto) 0.01 K/uL (0.00-0.02) 06/01/21 08:03 APTT 23.4 Seconds (21.0-31.0) 06/01/21 08:03 PTT Ratio 0.9 06/01/21 08:03 Sodium 133 mmol/L (136-145) L 06/08/21 07:01 Potassium 3.5 mmol/L (3.5-5.1) 06/08/21 07:01 Chloride 105 mmol/L (98-107) 06/08/21 07:01 Carbon Dioxide 21 mmol/L (21-32) 06/08/21 07:01 Anion Gap 7.0 (3-11) 06/08/21 07:01 BUN 19 mg/dl (7-18) H 06/08/21 07:01 Creatinine 0.56 mg/dl (0.6-1.2) L D 06/08/21 07:01 Est Cr Clr Drug Dosing 44.9 ml/min 06/08/21 07:01 Est GFR ( Amer) 95.8 ml/min 06/08/21 07:01 Est GFR (Non-Af Amer) 82.7 ml/min 06/08/21 07:01 BUN/Creatinine Ratio 34.6 (10-20) H 06/08/21 07:01 Glucose 80 mg/dl (70-99) 06/08/21 07:01 Calcium 8.1 mg/dl (8.5-10.1) L 06/08/21 07:01 Phosphorus 2.4 mg/dl (2.5-4.9) L 06/08/21 07:01 Magnesium 1.8 mg/dl (1.8-2.4) 06/08/21 07:01 Total Bilirubin 0.5 mg/dl (0.2-1) 06/01/21 08:03 Direct Bilirubin 0.1 mg/dl (0-0.2) 06/01/21 08:03 AST 26 U/L (15-37) 06/01/21 08:03 ALT 28 U/L (12-78) 06/01/21 08:03 Alkaline Phosphatase 53 U/L (45-117) 06/01/21 08:03 Troponin I < 0.015 ng/ml (0-0.045) 06/01/21 08:03 Total Protein 6.6 gm/dl (6.4-8.2) 06/01/21 08:03 Albumin 3.5 gm/dl (3.4-5.0) 06/01/21 08:03 Globulin 3.1 gm/dl (2.5-4.0) 06/01/21 08:03 Albumin/Globulin Ratio 1.1 (0.9-2) 06/01/21 08:03 Lipase 240 U/L (73-393) 06/01/21 08:03 Urine Color Yellow 06/01/21 09:50 Urine Appearance Clear (Clear) 06/01/21 09:50 Urine pH 5.5 (4.5-7.5) 06/01/21 09:50 Ur Specific [place] 1.016 (1.000-1.030) 06/01/21 09:50 Urine Protein Negative (Negative) 06/01/21 09:50 Urine Glucose (UA) Negative (Negative) 06/01/21 09:50 Urine Ketones Negative (Negative) 06/01/21 09:50 Urine Blood Negative (Negative) 06/01/21 09:50 Urine Nitrite Negative (Negative) 06/01/21 09:50 Urine Bilirubin Negative (Negative) 06/01/21 09:50 Urine Urobilinogen Negative (Negative) 06/01/21 09:50 Ur Leukocyte Esterase 2+ (Negative) H 06/01/21 09:50 Urine WBC (Auto) 10-30 /hpf (0-5) H 06/01/21 09:50 Urine RBC (Auto) 0-4 /hpf (0-4) 06/01/21 09:50 U Hyaline Cast (Auto) 1-5 /lpf (0-5) 06/01/21 09:50 U Epithel Cells (Auto) 10-20 /lpf (0-5) H 06/01/21 09:50 Urine Bacteria (Auto) Negative (Negative) 06/01/21 09:50 Urine Osmolality 402 mOsm/kg (500-800) L 06/08/21 01:05 Ur Random Creatinine 50.2 mg/dl 06/08/21 01:05 Ur Random Sodium 60 mmol/L 06/08/21 01:05 Ur Random Sodium Cancelled 06/08/21 01:05 COVID-19 Eval Order Covid19 at [facility] 06/01/21 09:57 SARS-CoV-2 (PCR) NEGATIVE (Negative) 06/01/21 09:57 Impressions Chest X-Ray 06/01/21 08:51 XR chest 1V portable HISTORY: Atypical Chest Pain COMPARISON: Chest 01/16/2020. FINDINGS: No pneumothorax. No pleural effusions. The lungs are hyperexpanded with apical predominant emphysematous changes. No new focal lung consolidations to suggest pneumonia. No evidence for pulmonary edema. The heart remains normal in size. IMPRESSION: No significant change compared to the prior study. No acute process. ACT 112: Negative or not required by law. Electronically signed by: Kenton Lewis M.D. 06/01/2021 9:16 AM Hospital Course (1) Hyponatremia: Thought to be related to HCTZ use. Possibly some component of feeling delirious yesterday +/-new addition of lexapro to her regimen during this admission-which was stopped after just a few days. Patient and one of her daughters now reporting less concern over anxiety as a large issue for her. Orthostatics were positive with sodium 128. With IVF and avoidance od diuretics, her sodium improved to 132 at time of discharge. Normal at baseline. Recommending following this closely as outpatient, especially if considering restarting of diuretics. WOULD AVOID HCTZ INDEFINITELY. (2) Hypertensive urgency: BP around goal, continue current medications. Avoid Bumex and discontinue HCTZ altogether. If patient needs a diuretic in the future would give her a loop diuretic as opposed with thiazide given her history. (3) CKD (chronic kidney disease) stage 3, GFR 30-59 ml/min: Kidney function remains at baseline. 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 (5) Acute on chronic kidney failure: Not POA, resolved prior to discharge. Total Time Total Time Spent Total Time Spent (In Minutes): 60 Discharge Plan Discharge Items Patient Disposition: Transfer [facility] Fac Reason For Visit: UTI, WEAKNESS, HTNIVE URGENCY Discharge Diagnosis: Hyponatremia Hypertensive Urgency CKD Stage III Condition on Discharge: Good Activity: Resume your previous activity Non-emergency contact: Primary Care Provider Call non-emergency contact if: you have any medication questions, your symptoms worsen, your pain is not controlled, your pain is worsening, your pain is unusual for you, your pain is concerning for you and you have a fever Follow-up/Referrals: Oneida Candelario MD [Primary Care Provider] - Diet: Low Sodium (2gm) Addtl Attending Provider Instructions: Please take all medications as instructed on discharge list below. Please avoid taking THIAZIDE diuretics in the future (HCTZ, chlorthalidone) as it appears these cause more extreme hyponatremia. Bumex should be fine to reinitiate as needed for blood pressure control in one week or so but I would recommend rechecking your sodium in 4-5 days before doing this and two weeks after any re-initiation of Bumex. Close follow-up with your primary care physician is recommended within one week to facilitate recheck of your sodium (basic metabolic panel) and to recheck your blood pressure and ensure things are going well home discharge from the hospital. It was a pleasure taking care of you! Please call if you have any questions or problems. You can reach a [facility] hospitalist on duty at [facility] 24 hours a day by calling [phone]. Take care of yourself. Emeli Ware, [facility] Hospitalist Pending Studies at Discharge: No Stand-Alone Forms: My [facility] Skilled Items Patient informed of condition?: Yes DNR: Yes Discharge Level of Care: Skilled Communicable Disease: No Discharge Prognosis: Stable Lines: None Urinary Catheter: No Medications and DC Order Prescriptions: Continued brinzolamide [Azopt] 1 % drops,suspension 1 drp OPB BID RF: 0 clopidogrel [Plavix] 75 mg tablet 75 mg PO QAM RF: 0 nitroglycerin [Nitrostat] 0.4 mg tablet, sublingual 0.4 mg sublingual UD PRN (Reason: Chest Pain) RF: 0 Combigan 0.2-0.5 % drops 1 drp OPB BID RF: 0 isosorbide mononitrate 30 mg tablet extended release 24 hr 30 mg PO QAM RF: 0 carvedilol [Coreg] 3.125 mg tablet 3.125 mg PO BID RF: 0 psyllium husk [Metamucil] 0.4 gram Capsule 0.4 g PO QAM RF: 0 lisinopril 20 mg tablet 20 mg PO BID RF: 0 amlodipine [Norvasc] 5 mg Tablet 5 mg PO QAM Qty: 30 RF: 0 atorvastatin 80 mg tablet 80 mg PO DAILY RF: 0 ascorbic acid (vitamin C) 250 mg Tablet 250 mg PO DAILY RF: 0 ferrous sulfate 325 mg (65 mg iron) Tablet 325 mg PO DAILY RF: 0 multivitamin with minerals Tablet 1 tab PO DAILY RF: 0 Discontinued hydrochlorothiazide 12.5 mg capsule 12.5 mg PO DAILY RF: 0 Discharge Orders: Discharge Order (Routine); Ordered 06/08/21 Ordered By: Emeli Ware Admission Data Admit Date/Time: 06/04/21 12:32 Attending Provider: Emeli Ware Admit Provider: Kelly Carlos Primary Care Provider: Oneida Candelario Other Providers: [place],Care Other Interventions: Discharge Summary Assessment (RN) Last Done: 06/08/21 11:03
== END 2021-06-08 12:48 | DRG 641 ==
LOC: ED 08:19 → 2N 08:19 → SUATTDRO 14:46 → 2N 16:15
DX: I65.23 Occlusion and stenosis of bilateral carotid arteries; N18.30 Chronic kidney disease, stage 3 unspecified; F41.1 Generalized anxiety disorder; Z86.12 Personal history of poliomyelitis; I16.0 Hypertensive urgency; H40.10X0 Unspecified open-angle glaucoma, stage unspecified; I25.2 Old myocardial infarction; E86.0 Dehydration; I25.10 Atherosclerotic heart disease of native coronary artery without angina pectoris; T50.2X5A Adverse effect of carbonic-anhydrase inhibitors, benzothiadiazides and other diuretics, initial encounter; E87.1 Hypo-osmolality and hyponatremia; Z95.5 Presence of coronary angioplasty implant and graft; Z82.3 Family history of stroke; I73.9 Peripheral vascular disease, unspecified; N17.9 Acute kidney failure, unspecified; E78.5 Hyperlipidemia, unspecified; Z83.3 Family history of diabetes mellitus; I12.9 Hypertensive chronic kidney disease with stage 1 through stage 4 chronic kidney disease, or unspecified chronic kidney disease; Y92.009 Unspecified place in unspecified non-institutional (private) residence as the place of occurrence of the external cause; I70.1 Atherosclerosis of renal artery; Z66 Do not resuscitate